=== PATIENT | female | born 1945 | race Hispanic/Latino ===

== ENCOUNTER 2017-05-10 06:55 | Inpatient (IN) | payer MEDICARE ==
[~2017-05-10] VITALS: Ht 152.4 cm; Wt 87.6 kg
[~2017-05-10 06:55] MED LIST: ACET-2743 PO; ALBU8.5H8 IH; ATOR10 PO; BIMA12.5OS OU; CHOL50004 PO; DRON400T2 PO; FURO20TA4 PO; IBUP-2070 PO; INSLAN SQ; INSU3INS3 SQ; LEVO150T11 PO; LOSA25TA21 PO; METF500T7 PO; MEXI200 PO; TORS20TA4 PO
[2017-05-10 07:15] LABS: BASOPHILS % (AUTO) 1.3 % (0.0-5.0); EOSINOPHILS % (AUTO) 1.9 % (0.0-8.0); HEMATOCRIT 34.2 % (36-48); LYMPHOCYTES % (AUTO) 15.2 % (21.0-51.0); MEAN CORPUSCULAR HEMOGLOBIN 26.5 pg (27.0-33.0); MEAN CORPUSCULAR HGB CONC 32.3 g/dL (32.0-36.0); MEAN CORPUSCULAR VOLUME 82.1 fL (79-99); MONOCYTES % (AUTO) 3.5 % (3.0-13.0); NEUTROPHILS % (AUTO) 78.1 % (40.0-77.0); PLATELET COUNT (AUTO) 218 K/uL (130-400); RED BLOOD CELL COUNT(AUTO) 4.17 MIL/uL (4.00-5.50); RED CELL DISTRIBUTION WIDTH 14.4 % (11.0-15.5); WHITE BLOOD COUNT (AUTO) 15.5 K/uL (4.8-10.8)
[2017-05-10 07:19] LABS: CREATININE 0.9 mg/dL (0.5-1.5); POTASSIUM 4.4 mmol/L (3.5-5.1)
[2017-05-10 07:34] LABS: B-TYPE NATRIURETIC PEPTIDE 528 pg/mL (0-100)
[2017-05-10 07:35] LABS: ALBUMIN 3.3 g/dL (3.5-5.0); BILIRUBIN,TOTAL 0.8 mg/dL (0.2-1.0); CREATINE KINASE MB 1.5 ng/mL (0.5-3.6); TOTAL PROTEIN, SERUM 7.5 g/dL (6.0-8.3)
[2017-05-10 07:40] LABS: INR 0.95 (0.85-1.15); PARTIAL THROMBOPLASTIN TIME 24.4 SEC (26.3-35.5)
[2017-05-10 08:16] LABS: ABG BASE EXCESS -1.8 mmol/L (-2.0-3.0); ABG HCO3 23.9 mmol/L (21.0-28.0); ABG OXYGEN SATURATION 99.5 % (95.0-99.0); ABG PCO2 44 mmHg (32-45)
[2017-05-10] MEDS ORDERED: LACTULOSE 20 GM/30 ML UDCUP PO PRN (08:45)
[2017-05-10] MEDS ORDERED: MAG HYDROX/AL HYDROX/SIMETH ES 30 ML SUSP UDCUP PO PRN (08:45)
[2017-05-10] MEDS ORDERED: DOXYCYCLINE 100MG+NS 250ML 250 ML IV SCH (08:45)
[2017-05-10 08:51] LABS: BILIRUBIN,URINE Negative (NEGATIVE); COLOR,URINE Yellow (YELLOW); GLUCOSE, URINE (UA) Negative (NEGATIVE); KETONES,URINE Negative (NEGATIVE); LEUKOCYTE ESTERASE ,URINE Negative (NEGATIVE); NITRATE,URINE Negative (NEGATIVE); OCCULT BLOOD,URINE Negative (NEGATIVE); PROTEIN,URINE 300 (NEGATIVE); UROBILINOGEN,URINE 0.2 mg/dL (0.2-1.0)
[2017-05-10 08:53] LABS: APPEARANCE,URINE SLIGHTLY CLOUDY (CLEAR)
[2017-05-10 09:02] LABS: BACTERIA,URINE Few /HPF (None Seen); MUCUS,URINE Moderate LPF (None Seen); RBC,URINE None Seen /HPF (0-1); SQUAMOUS EPITHELIAL CELL,UR 0-2 /LPF (0-2); WBC,URINE None Seen /HPF (0-1)
[2017-05-10] MEDS ORDERED: FAMOTIDINE/PF 20 MG/2 ML VIAL IV ONE (11:31)
[2017-05-10] MEDS ORDERED: DOXYCYCLINE 100MG+NS 250ML 250 ML IV ONE ×2 (11:31→11:33)
[2017-05-10] MEDS ORDERED: IPRATROPIUM/ALBUTEROL SULFATE 3 ML SOLUTION IH ONE (11:39)
[2017-05-10] MEDS: IPRATROPIUM/ALBUTEROL SULFATE 3 ML SOLUTION IH SCH ×2 (11:46→19:13)
[2017-05-10] MEDS: FAMOTIDINE/PF 20 MG/2 ML VIAL IV SCH ×2 (12:27→22:03)
[2017-05-10] MEDS: FUROSEMIDE 10 MG/ML 4ML VIAL IVP SCH ×2 (13:22→22:03)
[2017-05-10] MEDS: DOXYCYCLINE 100MG+NS 250ML 250 ML IV SCH ×2 (13:22→22:03)
[2017-05-10 13:26] VITALS: BP 130/62
[2017-05-10] MEDS ORDERED: IOPAMIDOL-370 100 ML VIAL IV ONE (14:52)
[2017-05-10] MEDS ORDERED: LEVAHFA IH (15:18)
[2017-05-10] MEDS ORDERED: NITR100C PO (15:18)
[2017-05-10] MEDS ORDERED: CYAN100T PO (15:18)
[2017-05-10] MEDS ORDERED: NITR0.4T SL (15:18)
[2017-05-10] MEDS ORDERED: TRAM50TA4 PO (15:18)
[2017-05-10 16:00] VITALS: BP 145/63
[2017-05-10] MEDS ORDERED: DEXTROSE 50%-WATER 50 ML DISP.SYRIN IV PRN (16:45)
[2017-05-10] MEDS ORDERED: GLUCAGON 1MG KIT 1 MG ML IM PRN (16:45)
[2017-05-10] MEDS: ACETAMINOPHEN 325 MG TAB PO PRN (18:44)
[2017-05-10 19:22] VITALS: BP 164/60
[2017-05-10] MEDS: INSULIN HUMULIN R 100 UNIT/ML 3ML SQ SCH (22:05)
[2017-05-10 23:19] VITALS: BP 149/55
[2017-05-11] MEDS: IPRATROPIUM/ALBUTEROL SULFATE 3 ML SOLUTION IH SCH ×4 (00:11→17:09)
[2017-05-11 03:43] VITALS: BP 154/58
[2017-05-11 04:54] LABS: HEMATOCRIT 30.3 % (36-48); MEAN CORPUSCULAR HGB CONC 34.2 g/dL (32.0-36.0); MEAN CORPUSCULAR VOLUME 81.9 fL (79-99); PLATELET COUNT (AUTO) 207 K/uL (130-400); RED BLOOD CELL COUNT(AUTO) 3.71 MIL/uL (4.00-5.50); RED CELL DISTRIBUTION WIDTH 14.3 % (11.0-15.5); WHITE BLOOD COUNT (AUTO) 8.4 K/uL (4.8-10.8)
[2017-05-11 04:58] LABS: CREATININE 1.1 mg/dL (0.5-1.5); POTASSIUM 4.3 mmol/L (3.5-5.1)
[2017-05-11] MEDS: ONDANSETRON HCL 4 MG/2 ML VIAL IV PRN ×3 (05:07→21:47)
[2017-05-11 05:16] LABS: B-TYPE NATRIURETIC PEPTIDE 541 pg/mL (0-100)
[2017-05-11] MEDS: INSULIN HUMULIN R 100 UNIT/ML 3ML SQ SCH ×4 (06:03→20:35)
[2017-05-11 07:43] VITALS: BP 158/74
[2017-05-11] MEDS ORDERED: TRAMADOL HCL 50 MG TABLET PO PRN (08:30)
[2017-05-11] MEDS ORDERED: LOSARTAN 50 MG TABLET PO SCH (09:00)
[2017-05-11] MEDS: ENOXAPARIN SODIUM 40 MG/0.4 ML SYRINGE SQ SCH (09:47)
[2017-05-11] MEDS: FAMOTIDINE/PF 20 MG/2 ML VIAL IV SCH ×2 (09:47→20:25)
[2017-05-11] MEDS: FUROSEMIDE 10 MG/ML 4ML VIAL IVP SCH ×2 (09:47→20:25)
[2017-05-11] MEDS: CYANOCOBALAMIN (VITAMIN B-12) 100 MCG TABLET PO SCH (09:48)
[2017-05-11] MEDS: ACETAMINOPHEN 325 MG TAB PO PRN ×2 (09:49→22:05)
[2017-05-11] MEDS: DOXYCYCLINE 100MG+NS 250ML 250 ML IV SCH ×2 (10:02→20:24)
[2017-05-11 11:40] VITALS: BP 147/80
[2017-05-11 16:20] VITALS: BP 157/73
[2017-05-11 19:35] VITALS: BP 116/66
[2017-05-11] MEDS: ATORVASTATIN CALCIUM 10 MG TABLET PO SCH (20:25)
[2017-05-11] MEDS: LATANOPROST 2.5 ML DROPS OU SCH (20:25)
[2017-05-11 23:33] VITALS: BP 126/58
[2017-05-12] MEDS: IPRATROPIUM/ALBUTEROL SULFATE 3 ML SOLUTION IH SCH ×4 (00:07→16:57)
[2017-05-12 04:00] VITALS: BP 151/66
[2017-05-12 04:23] LABS: HEMATOCRIT 28.8 % (36-48); MEAN CORPUSCULAR HEMOGLOBIN 27.8 pg (27.0-33.0); MEAN CORPUSCULAR HGB CONC 33.7 g/dL (32.0-36.0); MEAN CORPUSCULAR VOLUME 82.5 fL (79-99); PLATELET COUNT (AUTO) 178 K/uL (130-400); RED BLOOD CELL COUNT(AUTO) 3.49 MIL/uL (4.00-5.50); RED CELL DISTRIBUTION WIDTH 14.4 % (11.0-15.5); WHITE BLOOD COUNT (AUTO) 8.1 K/uL (4.8-10.8)
[2017-05-12 04:29] LABS: CREATININE 1.6 mg/dL (0.5-1.5)
[2017-05-12] MEDS: INSULIN HUMULIN R 100 UNIT/ML 3ML SQ SCH ×4 (05:35→20:07)
[2017-05-12] MEDS: ONDANSETRON HCL 4 MG/2 ML VIAL IV PRN (05:58)
[2017-05-12] MEDS: LEVOTHYROXINE 150 MCG TABLET PO SCH ×2 (05:59→09:24)
[2017-05-12 07:00] VITALS: BP 170/66
[2017-05-12] MEDS ORDERED: METHYLPREDNISOLONE SOD SUCC 125MG/2ML VIAL IVP SCH (08:15)
[2017-05-12] MEDS: FUROSEMIDE 40 MG TABLET PO SCH (09:24)
[2017-05-12] MEDS: METOCLOPRAMIDE 10 MG/2 ML VIAL IVP SCH ×3 (09:24→16:50)
[2017-05-12] MEDS: CYANOCOBALAMIN (VITAMIN B-12) 100 MCG TABLET PO SCH (09:24)
[2017-05-12] MEDS: ENOXAPARIN SODIUM 40 MG/0.4 ML SYRINGE SQ SCH (09:25)
[2017-05-12] MEDS: FAMOTIDINE/PF 20 MG/2 ML VIAL IV SCH ×2 (09:25→20:01)
[2017-05-12] MEDS: DOXYCYCLINE 100MG+NS 250ML 250 ML IV SCH ×2 (09:26→19:59)
[2017-05-12] MEDS: INSULIN GLARGINE 100 UNITS/ML 10 ML VIAL SQ SCH (09:26)
[2017-05-12 11:00] VITALS: BP 140/52
[2017-05-12 16:00] VITALS: BP 147/61
[2017-05-12] MEDS: GUAIFENESIN-DM 200/20 MG 10 ML PO PRN (17:03)
[2017-05-12 19:48] VITALS: BP 148/66
[2017-05-12] MEDS: ATORVASTATIN CALCIUM 10 MG TABLET PO SCH (19:59)
[2017-05-12] MEDS: CARVEDILOL 3.125 MG TABLET PO SCH (20:01)
[2017-05-12] MEDS: METHYLPREDNISOLONE SOD SUCC 40MG/ML 1ML IVP SCH (20:01)
[2017-05-12] MEDS: LATANOPROST 2.5 ML DROPS OU SCH (20:01)
[2017-05-12 23:47] VITALS: BP 162/70
[2017-05-13] MEDS: IPRATROPIUM/ALBUTEROL SULFATE 3 ML SOLUTION IH SCH ×5 (00:24→23:14)
[2017-05-13 04:00] VITALS: BP_SYST 135; BP_SYST 137; BP_DIAS 64; BP_DIAS 79
[2017-05-13 04:41] LABS: CREATININE 1.5 mg/dL (0.5-1.5); POTASSIUM 4.4 mmol/L (3.5-5.1)
[2017-05-13] MEDS: LEVOTHYROXINE 150 MCG TABLET PO SCH (06:24)
[2017-05-13] MEDS: METOCLOPRAMIDE 10 MG/2 ML VIAL IVP SCH ×3 (06:24→16:15)
[2017-05-13] MEDS: INSULIN GLARGINE 100 UNITS/ML 10 ML VIAL SQ SCH (06:25)
[2017-05-13] MEDS: INSULIN HUMULIN R 100 UNIT/ML 3ML SQ SCH ×4 (06:27→20:24)
[2017-05-13 07:00] VITALS: BP 146/62
[2017-05-13] MEDS ORDERED: LOSARTAN 50 MG TABLET PO SCH (09:00)
[2017-05-13] MEDS: DOXYCYCLINE 100MG+NS 250ML 250 ML IV SCH ×2 (09:43→20:03)
[2017-05-13] MEDS: CARVEDILOL 3.125 MG TABLET PO SCH ×2 (09:44→20:06)
[2017-05-13] MEDS: AMIODARONE HCL 200 MG TABLET PO SCH (09:44)
[2017-05-13] MEDS: CYANOCOBALAMIN (VITAMIN B-12) 100 MCG TABLET PO SCH (09:44)
[2017-05-13] MEDS: FUROSEMIDE 40 MG TABLET PO SCH (09:44)
[2017-05-13] MEDS: FAMOTIDINE/PF 20 MG/2 ML VIAL IV SCH ×2 (09:44→20:04)
[2017-05-13] MEDS: GUAIFENESIN-DM 200/20 MG 10 ML PO PRN (09:45)
[2017-05-13] MEDS: METHYLPREDNISOLONE SOD SUCC 40MG/ML 1ML IVP SCH ×2 (09:45→20:04)
[2017-05-13] MEDS: ENOXAPARIN SODIUM 40 MG/0.4 ML SYRINGE SQ SCH (09:45)
[2017-05-13 11:00] VITALS: BP 134/59
[2017-05-13 16:00] VITALS: BP 144/49
[2017-05-13 19:43] VITALS: BP 153/53
[2017-05-13] MEDS: LATANOPROST 2.5 ML DROPS OU SCH (20:04)
[2017-05-13] MEDS: ATORVASTATIN CALCIUM 10 MG TABLET PO SCH (20:04)
[2017-05-13 23:36] VITALS: BP 183/75
[2017-05-14 03:59] VITALS: BP 173/64
[2017-05-14 04:53] LABS: CREATININE 1.3 mg/dL (0.5-1.5); POTASSIUM 4.5 mmol/L (3.5-5.1)
[2017-05-14] MEDS: IPRATROPIUM/ALBUTEROL SULFATE 3 ML SOLUTION IH SCH ×4 (05:31→23:48)
[2017-05-14] MEDS: INSULIN HUMULIN R 100 UNIT/ML 3ML SQ SCH ×4 (06:32→20:42)
[2017-05-14] MEDS: LEVOTHYROXINE 150 MCG TABLET PO SCH (06:33)
[2017-05-14] MEDS: METOCLOPRAMIDE 10 MG/2 ML VIAL IVP SCH ×3 (06:33→15:54)
[2017-05-14] MEDS: INSULIN GLARGINE 100 UNITS/ML 10 ML VIAL SQ SCH (06:35)
[2017-05-14 07:00] VITALS: BP 145/85
[2017-05-14] MEDS: CYANOCOBALAMIN (VITAMIN B-12) 100 MCG TABLET PO SCH (08:25)
[2017-05-14] MEDS: METHYLPREDNISOLONE SOD SUCC 40MG/ML 1ML IVP SCH ×2 (08:25→20:35)
[2017-05-14] MEDS: FAMOTIDINE/PF 20 MG/2 ML VIAL IV SCH ×2 (08:25→20:36)
[2017-05-14] MEDS: CARVEDILOL 3.125 MG TABLET PO SCH ×2 (08:26→20:35)
[2017-05-14] MEDS: ENOXAPARIN SODIUM 40 MG/0.4 ML SYRINGE SQ SCH (08:26)
[2017-05-14] MEDS: AMIODARONE HCL 200 MG TABLET PO SCH (08:26)
[2017-05-14] MEDS: LOSARTAN 100 MG TABLET PO SCH (08:26)
[2017-05-14] MEDS: FUROSEMIDE 40 MG TABLET PO SCH (08:26)
[2017-05-14] MEDS: DOXYCYCLINE 100MG+NS 250ML 250 ML IV SCH ×2 (08:27→20:36)
[2017-05-14 11:00] VITALS: BP 159/65
[2017-05-14] MEDS: ACETYLCYSTEINE 20% 200MG/ML 4ML VIAL IH SCH ×2 (11:34→21:00)
[2017-05-14 16:00] VITALS: BP 153/60
[2017-05-14 19:29] VITALS: BP 161/59
[2017-05-14] MEDS: ATORVASTATIN CALCIUM 10 MG TABLET PO SCH (20:34)
[2017-05-14] MEDS: LATANOPROST 2.5 ML DROPS OU SCH (20:37)
[2017-05-14 23:24] VITALS: BP 163/64
[2017-05-15] VITALS (7 sets, daily range): BP systolic 139–182; BP diastolic 57–73
[2017-05-15] MEDS: METOCLOPRAMIDE 10 MG/2 ML VIAL IVP SCH ×3 (05:33→16:41)
[2017-05-15] MEDS: LEVOTHYROXINE 150 MCG TABLET PO SCH (05:33)
[2017-05-15] MEDS: INSULIN GLARGINE 100 UNITS/ML 10 ML VIAL SQ SCH (05:36)
[2017-05-15] MEDS: INSULIN HUMULIN R 100 UNIT/ML 3ML SQ SCH ×4 (05:37→21:00)
[2017-05-15] MEDS ORDERED: ACETYLCYSTEINE 20% 200MG/ML 4ML VIAL ONE ×3 (06:11→23:04)
[2017-05-15] MEDS: IPRATROPIUM/ALBUTEROL SULFATE 3 ML SOLUTION IH SCH ×4 (06:37→23:30)
[2017-05-15] MEDS: LOSARTAN 100 MG TABLET PO SCH (07:35)
[2017-05-15] MEDS: CARVEDILOL 3.125 MG TABLET PO SCH ×2 (07:35→21:54)
[2017-05-15] MEDS: AMIODARONE HCL 200 MG TABLET PO SCH (07:35)
[2017-05-15] MEDS: DOXYCYCLINE 100MG+NS 250ML 250 ML IV SCH ×2 (07:35→21:52)
[2017-05-15] MEDS: FUROSEMIDE 40 MG TABLET PO SCH (07:35)
[2017-05-15] MEDS: METHYLPREDNISOLONE SOD SUCC 40MG/ML 1ML IVP SCH ×2 (07:35→21:53)
[2017-05-15] MEDS: CYANOCOBALAMIN (VITAMIN B-12) 100 MCG TABLET PO SCH (07:36)
[2017-05-15] MEDS: FAMOTIDINE/PF 20 MG/2 ML VIAL IV SCH ×2 (07:36→21:53)
[2017-05-15] MEDS: ENOXAPARIN SODIUM 40 MG/0.4 ML SYRINGE SQ SCH (07:36)
[2017-05-15 07:47] LABS: CREATININE 1.1 mg/dL (0.5-1.5); POTASSIUM 4.4 mmol/L (3.5-5.1)
[2017-05-15] MEDS ORDERED: ALBUTEROL SULFATE 0.083% 2.5 MG/3 ML INH IH ONE (10:51)
[2017-05-15] MEDS ORDERED: IPRATROPIUM 0.5 MG/2.5 ML INH IH ONE (10:51)
[2017-05-15] MEDS: ACETYLCYSTEINE 20% 200MG/ML 4ML VIAL IH SCH ×2 (11:18→19:08)
[2017-05-15] MEDS: HYDRALAZINE HCL 20 MG/ML VIAL IV PRN (17:02)
[2017-05-15] MEDS: ATORVASTATIN CALCIUM 10 MG TABLET PO SCH (21:54)
[2017-05-15] MEDS: LATANOPROST 2.5 ML DROPS OU SCH (21:56)
[2017-05-16] MEDS: HYDRALAZINE HCL 20 MG/ML VIAL IV PRN (00:50)
[2017-05-16 04:00] VITALS: BP 152/57
[2017-05-16 05:01] LABS: CREATININE 1.3 mg/dL (0.5-1.5); POTASSIUM 4.4 mmol/L (3.5-5.1)
[2017-05-16] MEDS: IPRATROPIUM/ALBUTEROL SULFATE 3 ML SOLUTION IH SCH ×3 (06:31→18:32)
[2017-05-16] MEDS: ACETYLCYSTEINE 20% 200MG/ML 4ML VIAL IH SCH (06:31)
[2017-05-16] MEDS: LEVOTHYROXINE 150 MCG TABLET PO SCH (06:43)
[2017-05-16] MEDS: METOCLOPRAMIDE 10 MG/2 ML VIAL IVP SCH ×3 (06:43→16:28)
[2017-05-16] MEDS: INSULIN HUMULIN R 100 UNIT/ML 3ML SQ SCH ×4 (06:45→20:52)
[2017-05-16] MEDS: INSULIN GLARGINE 100 UNITS/ML 10 ML VIAL SQ SCH (06:47)
[2017-05-16 07:39] VITALS: BP 173/61
[2017-05-16] MEDS ORDERED: BENZONATATE 100 MG CAPSULE PO PRN (09:15)
[2017-05-16] MEDS: DOXYCYCLINE 100MG+NS 250ML 250 ML IV SCH ×2 (10:20→20:47)
[2017-05-16] MEDS: AMIODARONE HCL 200 MG TABLET PO SCH (10:21)
[2017-05-16] MEDS: AMLODIPINE BESYLATE 5 MG TAB PO SCH (10:21)
[2017-05-16] MEDS: CARVEDILOL 3.125 MG TABLET PO SCH ×2 (10:21→20:47)
[2017-05-16] MEDS: LOSARTAN 100 MG TABLET PO SCH (10:21)
[2017-05-16] MEDS: FAMOTIDINE/PF 20 MG/2 ML VIAL IV SCH ×2 (10:22→20:48)
[2017-05-16] MEDS: FUROSEMIDE 40 MG TABLET PO SCH (10:22)
[2017-05-16] MEDS: CYANOCOBALAMIN (VITAMIN B-12) 100 MCG TABLET PO SCH (10:22)
[2017-05-16] MEDS: METHYLPREDNISOLONE SOD SUCC 40MG/ML 1ML IVP SCH ×2 (10:22→20:48)
[2017-05-16] MEDS: ENOXAPARIN SODIUM 40 MG/0.4 ML SYRINGE SQ SCH (10:23)
[2017-05-16 11:14] VITALS: BP 144/49
[2017-05-16 16:16] VITALS: BP 153/59
[2017-05-16 19:51] VITALS: BP 157/59
[2017-05-16] MEDS: ACETAMINOPHEN 325 MG TAB PO PRN (19:52)
[2017-05-16] MEDS: ATORVASTATIN CALCIUM 10 MG TABLET PO SCH (20:47)
[2017-05-16] MEDS: LATANOPROST 2.5 ML DROPS OU SCH (21:19)
[2017-05-16 23:36] VITALS: BP 154/59
[2017-05-17] MEDS: IPRATROPIUM/ALBUTEROL SULFATE 3 ML SOLUTION IH SCH ×3 (01:21→11:11)
[2017-05-17 04:09] VITALS: BP 179/63
[2017-05-17 05:06] LABS: POTASSIUM 3.7 mmol/L (3.5-5.1)
[2017-05-17 05:39] VITALS: BP 164/68
[2017-05-17 06:00] VITALS: BP 159/68
[2017-05-17] MEDS: INSULIN HUMULIN R 100 UNIT/ML 3ML SQ SCH ×2 (06:01→11:39)
[2017-05-17] MEDS: LEVOTHYROXINE 150 MCG TABLET PO SCH (06:14)
[2017-05-17] MEDS: METOCLOPRAMIDE 10 MG/2 ML VIAL IVP SCH ×2 (06:14→11:40)
[2017-05-17 07:29] VITALS: BP 151/65
[2017-05-17] MEDS ORDERED: INSULIN GLARGINE 100 UNITS/ML 10 ML VIAL SQ SCH (07:30)
[2017-05-17] MEDS: DOXYCYCLINE 100MG+NS 250ML 250 ML IV SCH ×2 (09:00→10:28)
[2017-05-17] MEDS ORDERED: AMIO200T44 PO (09:12)
[2017-05-17] MEDS ORDERED: CARV3.1262 PO (09:12)
[2017-05-17] MEDS ORDERED: PRED10TA3 PO (09:12)
[2017-05-17] MEDS ORDERED: LOSA100T2 PO (09:12)
[2017-05-17] MEDS: METHYLPREDNISOLONE SOD SUCC 40MG/ML 1ML IVP SCH (10:20)
[2017-05-17] MEDS: AMIODARONE HCL 200 MG TABLET PO SCH (10:23)
[2017-05-17] MEDS: LOSARTAN 100 MG TABLET PO SCH (10:23)
[2017-05-17] MEDS: CARVEDILOL 3.125 MG TABLET PO SCH (10:23)
[2017-05-17] MEDS: CYANOCOBALAMIN (VITAMIN B-12) 100 MCG TABLET PO SCH (10:24)
[2017-05-17] MEDS: FUROSEMIDE 40 MG TABLET PO SCH (10:24)
[2017-05-17] MEDS: AMLODIPINE BESYLATE 5 MG TAB PO SCH (10:24)
[2017-05-17] MEDS: ENOXAPARIN SODIUM 40 MG/0.4 ML SYRINGE SQ SCH (10:31)
[2017-05-17] MEDS: FAMOTIDINE/PF 20 MG/2 ML VIAL IV SCH (10:40)
[2017-05-17 11:25] VITALS: BP 152/55
[2017-07-13] MEDS ORDERED: TIZA2CAP9 PO (13:18)
[2017-07-13] MEDS ORDERED: HYDR20VI6 IV (13:18)
[2017-07-13] MEDS ORDERED: METF500T6 PO (13:18)
[2017-07-13] MEDS ORDERED: AEC81 PO (13:18)
[2017-07-13] MEDS ORDERED: ISOS10TA8 PO (13:18)
[2017-07-13] MEDS ORDERED: AMLO5TAB5 PO (13:18)
[2017-07-13] MEDS ORDERED: SIMV40TA5 PO (13:18)
[2017-10-09] MEDS ORDERED: EZET10TA26 PO (10:43)
[2017-10-09] MEDS ORDERED: OMEP20CA10 PO (10:45)
[2017-10-09] MEDS ORDERED: LOSA25TA21 PO (10:45)
== END 2017-05-17 14:10 | disposition home or self-care (01) | DRG 291 ==
LOC: EDH 06:55 → EDHIP 08:31 → 2DH 13:05
PROVIDERS: ADMIT Family Medicine; ATTEND Family Medicine
PROC: 5A09357 Assistance with Respiratory Ventilation, Less than 24 Consecutive Hours, Continuous Positive Airway Pressure (ICD-10-PCS; principal; 2017-05-10)
PROC: 5A09357 Assistance with Respiratory Ventilation, Less than 24 Consecutive Hours, Continuous Positive Airway Pressure (ICD-10-PCS; 2017-05-12)
PROC: 5A09357 Assistance with Respiratory Ventilation, Less than 24 Consecutive Hours, Continuous Positive Airway Pressure (ICD-10-PCS; 2017-05-13)
PROC: 5A09357 Assistance with Respiratory Ventilation, Less than 24 Consecutive Hours, Continuous Positive Airway Pressure (ICD-10-PCS; 2017-05-13)
PROC: 5A09357 Assistance with Respiratory Ventilation, Less than 24 Consecutive Hours, Continuous Positive Airway Pressure (ICD-10-PCS; 2017-05-14)
DX: I13.0 Hypertensive heart and chronic kidney disease with heart failure and stage 1 through stage 4 chronic kidney disease, or unspecified chronic kidney disease (principal); I50.43 Acute on chronic combined systolic (congestive) and diastolic (congestive) heart failure; E11.22 Type 2 diabetes mellitus with diabetic chronic kidney disease; I27.20 Pulmonary hypertension, unspecified; R18.8 Other ascites; R06.03 Acute respiratory distress; E66.01 Morbid (severe) obesity due to excess calories; N18.3 Chronic kidney disease, stage 3 (moderate); I42.0 Dilated cardiomyopathy; I48.0 Paroxysmal atrial fibrillation; G47.30 Sleep apnea, unspecified; I48.2 Chronic atrial fibrillation; G47.33 Obstructive sleep apnea (adult) (pediatric); N28.9 Disorder of kidney and ureter, unspecified; E03.9 Hypothyroidism, unspecified; E78.00 Pure hypercholesterolemia, unspecified; E78.5 Hyperlipidemia, unspecified; I25.10 Atherosclerotic heart disease of native coronary artery without angina pectoris; T46.4X5A Adverse effect of angiotensin-converting-enzyme inhibitors, initial encounter; I42.5 Other restrictive cardiomyopathy; I45.9 Conduction disorder, unspecified; M19.90 Unspecified osteoarthritis, unspecified site; I87.2 Venous insufficiency (chronic) (peripheral); K59.00 Constipation, unspecified; R79.89 Other specified abnormal findings of blood chemistry; Z95.810 Presence of automatic (implantable) cardiac defibrillator; Z87.01 Personal history of pneumonia (recurrent); Z86.79 Personal history of other diseases of the circulatory system; Z82.49 Family history of ischemic heart disease and other diseases of the circulatory system; Z68.37 Body mass index [BMI] 37.0-37.9, adult; R05 Cough; Z90.49 Acquired absence of other specified parts of digestive tract; Z98.891 History of uterine scar from previous surgery
CPT/HCPCS: 36415; 36600; 71010; 71046; 71250; 71275; 80048; 80053; 81001; 82550; 82553; 82803; 82948; 83605; 83880; 84484; 85025; 85027; 85610; 85730; 93005; 93306; 93970; 94640; 94660; 94664; 97039; 99291; J0360; J1650; J1815; J1940; J2405; J2765; J2920; J2930; J3490; J7608; Q9967

== ENCOUNTER 2017-05-20 02:57 | Emergency (ER) | payer MEDICARE ==
[~2017-05-20 02:57] MED LIST changes: +AMIO200T44 PO; +CARV3.1262 PO; +CYAN100T PO; -DRON400T2 PO; -IBUP-2070 PO; +LEVAHFA IH; +LOSA100T2 PO; -LOSA25TA21 PO; -METF500T7 PO; -MEXI200 PO; +NITR0.4T SL; +NITR100C PO; +PRED10TA3 PO; -TORS20TA4 PO; +TRAM50TA4 PO
[2017-05-20 04:32] LABS: BASOPHILS % (AUTO) 0.4 % (0.0-5.0); HEMATOCRIT 35.4 % (36-48); MEAN CORPUSCULAR HEMOGLOBIN 26.8 pg (27.0-33.0); MEAN CORPUSCULAR HGB CONC 32.8 g/dL (32.0-36.0); MEAN CORPUSCULAR VOLUME 81.8 fL (79-99); MONOCYTES % (AUTO) 7.4 % (3.0-13.0); NEUTROPHILS % (AUTO) 65.2 % (40.0-77.0); PLATELET COUNT (AUTO) 243 K/uL (130-400); RED BLOOD CELL COUNT(AUTO) 4.33 MIL/uL (4.00-5.50); RED CELL DISTRIBUTION WIDTH 14.6 % (11.0-15.5); WHITE BLOOD COUNT (AUTO) 12.6 K/uL (4.8-10.8)
[2017-05-20 04:35] LABS: CREATININE 1.2 mg/dL (0.5-1.5); POTASSIUM 4.1 mmol/L (3.5-5.1)
[2017-05-20 04:39] LABS: ALBUMIN 2.7 g/dL (3.5-5.0); BILIRUBIN,TOTAL 0.4 mg/dL (0.2-1.0); TOTAL PROTEIN, SERUM 6.3 g/dL (6.0-8.3)
[2017-05-20 04:48] LABS: RAPID GROUP A STREP NEGATIVE (NEGATIVE)
[2017-05-20] MEDS ORDERED: IBUPROFEN 600 MG TABLET ONE (06:31)
[2017-05-20 06:55] LABS: APPEARANCE,URINE Clear (CLEAR); BILIRUBIN,URINE Negative (NEGATIVE); COLOR,URINE Yellow (YELLOW); GLUCOSE, URINE (UA) Negative (NEGATIVE); KETONES,URINE Negative (NEGATIVE); LEUKOCYTE ESTERASE ,URINE Negative (NEGATIVE); NITRATE,URINE Negative (NEGATIVE); OCCULT BLOOD,URINE Negative (NEGATIVE); PROTEIN,URINE POS 2+ (NEGATIVE); UROBILINOGEN,URINE 0.2 mg/dL (0.2-1.0)
[2017-05-20 07:15] LABS: BACTERIA,URINE Few /HPF (None Seen); WBC,URINE 0-1 /HPF (0-1)
[2017-05-20 07:16] LABS: SQUAMOUS EPITHELIAL CELL,UR Rare /LPF (0-2)
[2017-07-13] MEDS ORDERED: AMLO5TAB5 PO (13:18)
[2017-07-13] MEDS ORDERED: HYDR20VI6 IV (13:18)
[2017-07-13] MEDS ORDERED: ISOS10TA8 PO (13:18)
[2017-07-13] MEDS ORDERED: AEC81 PO (13:18)
[2017-07-13] MEDS ORDERED: TIZA2CAP9 PO (13:18)
[2017-07-13] MEDS ORDERED: SIMV40TA5 PO (13:18)
[2017-07-13] MEDS ORDERED: METF500T6 PO (13:18)
[2017-10-09] MEDS ORDERED: EZET10TA26 PO (10:43)
[2017-10-09] MEDS ORDERED: OMEP20CA10 PO (10:45)
[2017-10-09] MEDS ORDERED: LOSA25TA21 PO (10:45)
== END 2017-05-20 08:36 | disposition home or self-care (01) ==
LOC: EDH 02:57
DX: J20.9 Acute bronchitis, unspecified (principal); E11.9 Type 2 diabetes mellitus without complications; I11.0 Hypertensive heart disease with heart failure; I50.9 Heart failure, unspecified; M19.90 Unspecified osteoarthritis, unspecified site
CPT/HCPCS: 36415; 71046; 80053; 81001; 85025; 87804; 87880; 94640

== ENCOUNTER → 2017-08-13 | Outpatient (CLI) | payer MEDICARE ==
[~2017-08-13] MED LIST changes: -ACET-2743 PO; +AEC81 PO; +ALLO100T PO; -AMIO200T44 PO; +AMLO5TAB5 PO; +BENZ200C53 PO; +CEFU500T67 PO; -CYAN100T PO; +DOXY100C2 PO; +DRON400T2 PO; +EZET10TA26 PO; +HYDR-2534 PO; +HYDR20VI6 IV; +IBUP-2070 PO; +ISOS10TA8 PO; +LIDOP TP; +LOSA25TA21 PO; +METF500T6 PO; +METO5 PO; -NITR0.4T SL; -NITR100C PO; +OMEP20CA10 PO; -PRED10TA3 PO; +SERT25TA5 PO; +SIMV40TA5 PO; +TIZA2CAP9 PO; +TIZA2TAB4 PO; +TORS20TA4 PO
== END ==
LOC: OIH 08:30
PROVIDERS: ATTEND Internal Medicine Cardiovascular Disease
DX: I48.0 Paroxysmal atrial fibrillation (principal); I50.22 Chronic systolic (congestive) heart failure; Z95.0 Presence of cardiac pacemaker
CPT/HCPCS: 71046

== ENCOUNTER 2017-08-29 01:44 | Inpatient (IN) | payer MEDICARE ==
[~2017-08-29] VITALS: Ht 152.4 cm; Wt 89.8 kg
[~2017-08-29 01:44] MED LIST changes: -ALLO100T PO; -ATOR10 PO; -BENZ200C53 PO; -CEFU500T67 PO; -DOXY100C2 PO; -DRON400T2 PO; -EZET10TA26 PO; -HYDR-2534 PO; -IBUP-2070 PO; -LIDOP TP; -LOSA25TA21 PO; -METO5 PO; -OMEP20CA10 PO; -SERT25TA5 PO; -TIZA2TAB4 PO; -TORS20TA4 PO
[2017-08-29 02:03] LABS: BASOPHILS % (AUTO) 0.6 % (0.0-5.0); HEMATOCRIT 31.2 % (36-48); LYMPHOCYTES % (AUTO) 14.6 % (21.0-51.0); MEAN CORPUSCULAR HEMOGLOBIN 27.6 pg (27.0-33.0); MEAN CORPUSCULAR HGB CONC 33.7 g/dL (32.0-36.0); MEAN CORPUSCULAR VOLUME 81.9 fL (79-99); MONOCYTES % (AUTO) 5.8 % (3.0-13.0); PLATELET COUNT (AUTO) 234 K/uL (130-400); RED BLOOD CELL COUNT(AUTO) 3.81 MIL/uL (4.00-5.50); RED CELL DISTRIBUTION WIDTH 14.5 % (11.0-15.5); WHITE BLOOD COUNT (AUTO) 14.2 K/uL (4.8-10.8)
[2017-08-29] MEDS ORDERED: NITROGLYCERIN 1GM/1 INCH PACKET TD ONE (02:08)
[2017-08-29] MEDS ORDERED: ASPIRIN 325 MG TABLET ONE ×2 (02:08→08:05)
[2017-08-29] MEDS ORDERED: LABETALOL HCL 5 MG/ML 20ML VIAL IV ONE (02:08)
[2017-08-29 02:15] LABS: POTASSIUM 4.3 mmol/L (3.5-5.1)
[2017-08-29 02:20] LABS: ALBUMIN 3.4 g/dL (3.5-5.0); BILIRUBIN,TOTAL 0.4 mg/dL (0.2-1.0); TOTAL PROTEIN, SERUM 7.6 g/dL (6.0-8.3)
[2017-08-29 02:31] LABS: INR 0.93 (0.85-1.15); PROTHROMBIN TIME 9.8 SEC (9.6-11.6)
[2017-08-29] MEDS ORDERED: ACETAMINOPHEN-CODEINE 300/30MG TAB PO PRN ×2 (07:15)
[2017-08-29] MEDS ORDERED: NITROGLYCERIN 0.4 MG SL TAB SL PRN (07:15)
[2017-08-29] MEDS ORDERED: MAG HYDROX/AL HYDROX/SIMETH ES 30 ML SUSP UDCUP PO PRN (07:15)
[2017-08-29] MEDS: NITROGLYCERIN 1GM/1 INCH PACKET TD SCH ×2 (07:15→17:18)
[2017-08-29] MEDS ORDERED: POTASSIUM CHLORIDE 10% ELIXIR 20 MEQ/15 ML UDCUP PO PRN (07:15)
[2017-08-29] MEDS ORDERED: POTASSIUM CHLORIDE 20MEQ/100ML 100 ML IV PRN (07:15)
[2017-08-29] MEDS ORDERED: ONDANSETRON HCL 4 MG/2 ML VIAL IV PRN (07:15)
[2017-08-29] MEDS ORDERED: GUAIFENESIN-DM 200/20 MG 10 ML PO PRN (07:15)
[2017-08-29] MEDS ORDERED: LIDOCAINE HCL-MPF 1% 2ML VIAL IVP PRN (07:15)
[2017-08-29] MEDS ORDERED: LACTULOSE 20 GM/30 ML UDCUP PO PRN (07:15)
[2017-08-29] MEDS ORDERED: ACETAMINOPHEN 325 MG TAB PO PRN ×2 (07:15)
[2017-08-29] MEDS ORDERED: MORPHINE SULFATE 2 MG/ML 1ML SYG IV PRN (07:15)
[2017-08-29] MEDS ORDERED: POTASSIUM CHLORIDE 20 MEQ ERTAB PO PRN (07:15)
[2017-08-29] MEDS ORDERED: MORPHINE SULFATE 4 MG/1ML SYG IV PRN (07:15)
[2017-08-29] MEDS ORDERED: METOPROLOL TARTRATE 25 MG TAB ONE (08:05)
[2017-08-29] MEDS ORDERED: FAMOTIDINE 20MG TAB 20 MG TAB ONE (08:05)
[2017-08-29] MEDS ORDERED: ENOXAPARIN SODIUM 40 MG/0.4 ML SYRINGE SQ ONE (08:06)
[2017-08-29] MEDS ORDERED: ACETAMINOPHEN 325 MG TAB ONE (08:14)
[2017-08-29] MEDS: FUROSEMIDE 10 MG/ML 4ML VIAL IVP SCH ×3 (09:00→21:05)
[2017-08-29] MEDS: FAMOTIDINE 20MG TAB 20 MG TAB PO SCH ×2 (09:00→21:05)
[2017-08-29] MEDS: ASPIRIN 325 MG TABLET PO SCH (09:00)
[2017-08-29] MEDS: METOPROLOL TARTRATE 25 MG TAB PO SCH ×2 (09:00→21:06)
[2017-08-29] MEDS: ENOXAPARIN SODIUM 40 MG/0.4 ML SYRINGE SQ SCH (09:00)
[2017-08-29 09:31] VITALS: BP 155/61
[2017-08-29 09:39] LABS: CREATINE KINASE MB 1.2 ng/mL (0.5-3.6)
[2017-08-29 11:20] VITALS: BP 135/104
[2017-08-29] MEDS: IPRATROPIUM/ALBUTEROL SULFATE 3 ML SOLUTION IH SCH ×3 (11:20→23:45)
[2017-08-29 11:26] LABS: CREATINE KINASE, TOTAL 47 U/L (21-232); MYOGLOBIN 57 ng/mL (10-92); TROPONIN I < 0.04 ng/mL (0.00-0.06)
[2017-08-29 16:20] VITALS: BP 150/76
[2017-08-29] MEDS: HYDRALAZINE HCL 20 MG/ML VIAL IV PRN (19:02)
[2017-08-29 19:12] LABS: CREATINE KINASE MB 0.9 ng/mL (0.5-3.6); CREATINE KINASE, TOTAL 54 U/L (21-232); MYOGLOBIN 58 ng/mL (10-92); TROPONIN I < 0.04 ng/mL (0.00-0.06)
[2017-08-29 19:57] VITALS: BP 169/69
[2017-08-30] MEDS: NITROGLYCERIN 1GM/1 INCH PACKET TD SCH ×4 (00:20→23:15)
[2017-08-30] MEDS ORDERED: DEXTROSE 50%-WATER 50 ML DISP.SYRIN IV PRN (01:15)
[2017-08-30] MEDS ORDERED: GLUCAGON 1MG KIT 1 MG ML IM PRN (01:15)
[2017-08-30] MEDS ORDERED: INSULIN HUMULIN R 100 UNIT/ML 3ML ONE (01:17)
[2017-08-30 04:45] LABS: CREATININE 1.4 mg/dL (0.5-1.5); POTASSIUM 4.1 mmol/L (3.5-5.1)
[2017-08-30 04:48] LABS: HEMATOCRIT 29.3 % (36-48); MEAN CORPUSCULAR HEMOGLOBIN 27.5 pg (27.0-33.0); MEAN CORPUSCULAR VOLUME 80.9 fL (79-99); PLATELET COUNT (AUTO) 256 K/uL (130-400); RED BLOOD CELL COUNT(AUTO) 3.63 MIL/uL (4.00-5.50); RED CELL DISTRIBUTION WIDTH 15.1 % (11.0-15.5); WHITE BLOOD COUNT (AUTO) 13.9 K/uL (4.8-10.8)
[2017-08-30 05:05] VITALS: BP 124/70
[2017-08-30 05:10] LABS: B-TYPE NATRIURETIC PEPTIDE 1200 pg/mL (0-100)
[2017-08-30] MEDS: IPRATROPIUM/ALBUTEROL SULFATE 3 ML SOLUTION IH SCH ×4 (06:02→23:29)
[2017-08-30] MEDS: INSULIN HUMULIN R 100 UNIT/ML 3ML SQ SCH ×4 (07:07→21:00)
[2017-08-30 07:16] VITALS: BP 174/63
[2017-08-30] MEDS: METOPROLOL TARTRATE 25 MG TAB PO SCH ×2 (08:32→21:36)
[2017-08-30] MEDS: FAMOTIDINE 20MG TAB 20 MG TAB PO SCH ×2 (08:32→21:36)
[2017-08-30] MEDS: FUROSEMIDE 10 MG/ML 4ML VIAL IVP SCH ×2 (08:32→21:35)
[2017-08-30] MEDS: ASPIRIN 325 MG TABLET PO SCH (08:32)
[2017-08-30] MEDS: ENOXAPARIN SODIUM 40 MG/0.4 ML SYRINGE SQ SCH (08:33)
[2017-08-30] MEDS ORDERED: ALBUTEROL SULFATE 0.083% 2.5 MG/3 ML INH IH PRN (09:30)
[2017-08-30 11:24] VITALS: BP 131/51
[2017-08-30] MEDS ORDERED: DRON400T2 PO (12:03)
[2017-08-30] MEDS ORDERED: CEFU500T67 PO (12:03)
[2017-08-30] MEDS ORDERED: TORS20TA4 PO (12:43)
[2017-08-30] MEDS ORDERED: IBUP-2070 PO (12:43)
[2017-08-30] MEDS ORDERED: BENZ200C53 PO (12:43)
[2017-08-30] MEDS ORDERED: ALLO100T PO (12:43)
[2017-08-30] MEDS ORDERED: TIZA2TAB4 PO (12:43)
[2017-08-30] MEDS ORDERED: ATOR10 PO (12:43)
[2017-08-30 15:54] VITALS: BP 148/58
[2017-08-30 20:06] VITALS: BP 137/61
[2017-08-30] MEDS: CARVEDILOL 3.125 MG TABLET PO SCH (21:36)
[2017-08-30 23:24] VITALS: BP 156/55
[2017-08-31 03:53] VITALS: BP 156/71
[2017-08-31 04:53] LABS: HEMATOCRIT 29.2 % (36-48); MEAN CORPUSCULAR HEMOGLOBIN 27.5 pg (27.0-33.0); MEAN CORPUSCULAR HGB CONC 33.9 g/dL (32.0-36.0); MEAN CORPUSCULAR VOLUME 81.2 fL (79-99); PLATELET COUNT (AUTO) 229 K/uL (130-400); RED BLOOD CELL COUNT(AUTO) 3.59 MIL/uL (4.00-5.50); RED CELL DISTRIBUTION WIDTH 14.9 % (11.0-15.5); WHITE BLOOD COUNT (AUTO) 11.3 K/uL (4.8-10.8)
[2017-08-31 05:27] LABS: CREATININE 1.4 mg/dL (0.5-1.5); POTASSIUM 3.9 mmol/L (3.5-5.1)
[2017-08-31] MEDS: IPRATROPIUM/ALBUTEROL SULFATE 3 ML SOLUTION IH SCH ×4 (06:14→23:59)
[2017-08-31] MEDS: NITROGLYCERIN 1GM/1 INCH PACKET TD SCH (06:23)
[2017-08-31] MEDS: INSULIN HUMULIN R 100 UNIT/ML 3ML SQ SCH ×4 (06:44→21:34)
[2017-08-31 07:17] VITALS: BP 179/67
[2017-08-31] MEDS: CARVEDILOL 3.125 MG TABLET PO SCH ×2 (09:05→21:29)
[2017-08-31] MEDS: AMLODIPINE BESYLATE 5 MG TAB PO SCH (09:05)
[2017-08-31] MEDS: FAMOTIDINE 20MG TAB 20 MG TAB PO SCH ×2 (09:05→21:29)
[2017-08-31] MEDS: METOPROLOL TARTRATE 25 MG TAB PO SCH (09:05)
[2017-08-31] MEDS: ASPIRIN 81MG TAB.CHEW PO SCH (09:05)
[2017-08-31] MEDS: ENOXAPARIN SODIUM 40 MG/0.4 ML SYRINGE SQ SCH (09:06)
[2017-08-31] MEDS: FUROSEMIDE 10 MG/ML 4ML VIAL IVP SCH (09:11)
[2017-08-31] MEDS ORDERED: TIZANIDINE HCL 2 MG TABLET PO PRN (09:15)
[2017-08-31 11:51] VITALS: BP 155/74
[2017-08-31 16:46] VITALS: BP 157/60
[2017-08-31 19:38] VITALS: BP 166/57
[2017-08-31] MEDS: FUROSEMIDE 10 MG/ML 2ML VIAL IVP SCH (21:28)
[2017-08-31] MEDS: ATORVASTATIN CALCIUM 10 MG TABLET PO SCH (21:29)
[2017-08-31] MEDS: DRONEDARONE HYDROCHLORIDE 400 MG TABLET PO SCH (21:29)
[2017-08-31 23:34] VITALS: BP 123/56
[2017-09-01 04:00] VITALS: BP 137/47
[2017-09-01 05:37] LABS: CREATININE 1.5 mg/dL (0.5-1.5); POTASSIUM 3.7 mmol/L (3.5-5.1)
[2017-09-01] MEDS: INSULIN HUMULIN R 100 UNIT/ML 3ML SQ SCH ×4 (06:03→21:00)
[2017-09-01] MEDS: IPRATROPIUM/ALBUTEROL SULFATE 3 ML SOLUTION IH SCH ×3 (06:07→19:19)
[2017-09-01] MEDS: LEVOTHYROXINE 25 MCG TABLET PO SCH (07:04)
[2017-09-01] MEDS: LEVOTHYROXINE 112 MCG TABLET PO SCH (07:04)
[2017-09-01] MEDS: INSULIN GLARGINE 100 UNITS/ML 10 ML VIAL SQ SCH (07:05)
[2017-09-01 07:55] VITALS: BP 147/69
[2017-09-01] MEDS ORDERED: LIDOP TP (08:46)
[2017-09-01] MEDS: ASPIRIN 81 MG EC TAB PO SCH (09:00)
[2017-09-01] MEDS: ALLOPURINOL 100 MG TABLET PO SCH (09:03)
[2017-09-01] MEDS: FAMOTIDINE 20MG TAB 20 MG TAB PO SCH ×2 (09:03→22:02)
[2017-09-01] MEDS: AMLODIPINE BESYLATE 5 MG TAB PO SCH (09:03)
[2017-09-01] MEDS: CARVEDILOL 3.125 MG TABLET PO SCH ×2 (09:03→22:05)
[2017-09-01] MEDS: ASPIRIN 81MG TAB.CHEW PO SCH (09:03)
[2017-09-01] MEDS: ENOXAPARIN SODIUM 40 MG/0.4 ML SYRINGE SQ SCH (09:04)
[2017-09-01] MEDS: FUROSEMIDE 10 MG/ML 2ML VIAL IVP SCH ×2 (09:04→22:02)
[2017-09-01] MEDS: DRONEDARONE HYDROCHLORIDE 400 MG TABLET PO SCH ×2 (09:05→22:04)
[2017-09-01 11:45] VITALS: BP 131/52
[2017-09-01 16:20] VITALS: BP 139/53
[2017-09-01 19:54] VITALS: BP 156/78
[2017-09-01] MEDS: ATORVASTATIN CALCIUM 10 MG TABLET PO SCH (22:02)
[2017-09-01] MEDS: HYDRALAZINE HCL 20 MG/ML VIAL IV PRN (23:48)
[2017-09-01 23:50] VITALS: BP 179/66
[2017-09-02] MEDS: IPRATROPIUM/ALBUTEROL SULFATE 3 ML SOLUTION IH SCH ×2 (00:29→06:22)
[2017-09-02 04:05] VITALS: BP 128/56
[2017-09-02 04:53] LABS: HEMATOCRIT 29.6 % (36-48); MEAN CORPUSCULAR HEMOGLOBIN 27.6 pg (27.0-33.0); MEAN CORPUSCULAR HGB CONC 33.9 g/dL (32.0-36.0); MEAN CORPUSCULAR VOLUME 81.5 fL (79-99); PLATELET COUNT (AUTO) 284 K/uL (130-400); RED BLOOD CELL COUNT(AUTO) 3.63 MIL/uL (4.00-5.50); RED CELL DISTRIBUTION WIDTH 14.9 % (11.0-15.5); WHITE BLOOD COUNT (AUTO) 10.7 K/uL (4.8-10.8)
[2017-09-02 05:06] LABS: CREATININE 1.5 mg/dL (0.5-1.5); POTASSIUM 3.5 mmol/L (3.5-5.1)
[2017-09-02] MEDS: LEVOTHYROXINE 25 MCG TABLET PO SCH (06:11)
[2017-09-02] MEDS: LEVOTHYROXINE 112 MCG TABLET PO SCH (06:12)
[2017-09-02] MEDS: INSULIN GLARGINE 100 UNITS/ML 10 ML VIAL SQ SCH (06:14)
[2017-09-02] MEDS: INSULIN HUMULIN R 100 UNIT/ML 3ML SQ SCH (06:18)
[2017-09-02 07:37] VITALS: BP 137/58
[2017-09-02] MEDS ORDERED: METO5 PO (08:19)
[2017-09-02] MEDS: AMLODIPINE BESYLATE 5 MG TAB PO SCH (08:38)
[2017-09-02] MEDS: ASPIRIN 81MG TAB.CHEW PO SCH (08:38)
[2017-09-02] MEDS: ALLOPURINOL 100 MG TABLET PO SCH (08:38)
[2017-09-02 08:39] VITALS: BP 137/58
[2017-09-02] MEDS: ASPIRIN 81 MG EC TAB PO SCH (08:39)
[2017-09-02] MEDS: CARVEDILOL 3.125 MG TABLET PO SCH (08:39)
[2017-09-02] MEDS: FUROSEMIDE 10 MG/ML 2ML VIAL IVP SCH (08:39)
[2017-09-02] MEDS: ENOXAPARIN SODIUM 40 MG/0.4 ML SYRINGE SQ SCH (08:40)
[2017-09-02] MEDS: DRONEDARONE HYDROCHLORIDE 400 MG TABLET PO SCH (08:41)
[2017-09-02] MEDS: FAMOTIDINE 20MG TAB 20 MG TAB PO SCH (08:45)
[2017-09-02] MEDS ORDERED: METOCLOPRAMIDE 5 MG TABLET PO SCH (11:30)
[2017-10-09] MEDS ORDERED: EZET10TA26 PO (10:43)
[2017-10-09] MEDS ORDERED: OMEP20CA10 PO (10:45)
[2017-10-09] MEDS ORDERED: LOSA25TA21 PO (10:45)
== END 2017-09-02 11:05 | disposition home or self-care (01) | DRG 293 ==
LOC: EDH 01:44 → EDHIP 06:10 → OBSVTOIN 06:10 → 2DH 08:23
PROVIDERS: ADMIT Internal Medicine; ATTEND Internal Medicine
PROC: 5A09357 Assistance with Respiratory Ventilation, Less than 24 Consecutive Hours, Continuous Positive Airway Pressure (ICD-10-PCS; principal; 2017-08-31)
PROC: 5A09357 Assistance with Respiratory Ventilation, Less than 24 Consecutive Hours, Continuous Positive Airway Pressure (ICD-10-PCS; 2017-09-01)
PROC: 5A09357 Assistance with Respiratory Ventilation, Less than 24 Consecutive Hours, Continuous Positive Airway Pressure (ICD-10-PCS; 2017-09-02)
DX: I11.0 Hypertensive heart disease with heart failure (principal); I42.9 Cardiomyopathy, unspecified; I27.20 Pulmonary hypertension, unspecified; E66.01 Morbid (severe) obesity due to excess calories; I50.43 Acute on chronic combined systolic (congestive) and diastolic (congestive) heart failure; E11.9 Type 2 diabetes mellitus without complications; E78.5 Hyperlipidemia, unspecified; E03.9 Hypothyroidism, unspecified; G47.33 Obstructive sleep apnea (adult) (pediatric); I48.2 Chronic atrial fibrillation; I25.10 Atherosclerotic heart disease of native coronary artery without angina pectoris; I25.5 Ischemic cardiomyopathy; Z95.0 Presence of cardiac pacemaker; Z91.19 Patient's noncompliance with other medical treatment and regimen; Z82.49 Family history of ischemic heart disease and other diseases of the circulatory system; Z68.38 Body mass index [BMI] 38.0-38.9, adult
CPT/HCPCS: 36415; 71045; 71250; 80048; 80053; 82550; 82553; 82948; 83735; 83874; 83880; 84484; 85025; 85027; 85610; 85730; 93005; 93970; 94640; 94664; 99291; J0360; J1650; J1815; J1940; J3490

== ENCOUNTER 2017-10-10 06:18 | Observation (INO) | payer MEDICARE ==
[2017-10-09 10:04] LABS: BASOPHILS % (AUTO) 0.5 % (0.0-5.0); EOSINOPHILS % (AUTO) 3.7 % (0.0-8.0); HEMATOCRIT 31.5 % (36-48); LYMPHOCYTES % (AUTO) 16.5 % (21.0-51.0); MEAN CORPUSCULAR HEMOGLOBIN 27.9 pg (27.0-33.0); MEAN CORPUSCULAR HGB CONC 34.2 g/dL (32.0-36.0); MEAN CORPUSCULAR VOLUME 81.7 fL (79-99); MONOCYTES % (AUTO) 6.1 % (3.0-13.0); NEUTROPHILS % (AUTO) 73.2 % (40.0-77.0); PLATELET COUNT (AUTO) 280 K/uL (130-400); RED BLOOD CELL COUNT(AUTO) 3.86 MIL/uL (4.00-5.50); RED CELL DISTRIBUTION WIDTH 14.6 % (11.0-15.5)
[2017-10-09 10:05] VITALS: BP 150/71
[2017-10-09 10:16] LABS: CREATININE 1.3 mg/dL (0.5-1.5); POTASSIUM 4.6 mmol/L (3.5-5.1)
[2017-10-09 10:39] LABS: INR 0.95 (0.85-1.15); PARTIAL THROMBOPLASTIN TIME 26.1 SEC (26.3-35.5)
[~2017-10-10] VITALS: Ht 148.6 cm; Wt 91.5 kg
[2017-10-10] VITALS (12 sets, daily range): BP systolic 133–186; BP diastolic 53–83
[~2017-10-10 06:18] MED LIST changes: -AEC81 PO; +ALLO100T PO; -AMLO5TAB5 PO; -CARV3.1262 PO; +DRON400T2 PO; +EZET10TA26 PO; -FURO20TA4 PO; -HYDR20VI6 IV; -ISOS10TA8 PO; -LEVAHFA IH; +LIDOP TP; -LOSA100T2 PO; +LOSA25TA21 PO; +METO5 PO; +OMEP20CA10 PO; -SIMV40TA5 PO; -TIZA2CAP9 PO; +TIZA2TAB4 PO; -TRAM50TA4 PO
[2017-10-10] MEDS ORDERED: SERT25TA5 PO (07:30)
[2017-10-10] MEDS ORDERED: HYDR-2534 PO (07:31)
[2017-10-10] MEDS ORDERED: WATER FOR INJECTION,STERILE 20 ML VIAL IJ ONE (08:00)
[2017-10-10] MEDS ORDERED: CEFAZOLIN SODIUM 1 GM VIAL IVP ONE (08:00)
[2017-10-10] MEDS ORDERED: SODIUM CHLORIDE 0.9% 1000ML 1,000 ML IV SCH (08:00)
[2017-10-10] MEDS ORDERED: ISOVUE-300 100 ML VIAL IV ONE (10:33)
[2017-10-10] MEDS ORDERED: MIDAZOLAM HCL 1 MG/ML 2ML VIAL ONE ×4 (10:33→11:56)
[2017-10-10] MEDS ORDERED: BUPIVACAINE/PF 0.25% 30ML VIAL IJ ONE (10:33)
[2017-10-10] MEDS ORDERED: LIDOCAINE HCL 1% MDV 50ML VIAL ONE (10:33)
[2017-10-10] MEDS ORDERED: MEPERIDINE-PF 25 MG/ML SYG ONE ×4 (10:33→11:56)
[2017-10-10] MEDS ORDERED: CEFAZOLIN 1GM / D5W 50ML 50 ML ONE (10:36)
[2017-10-10] MEDS ORDERED: DILTIAZEM HCL 5 MG/ML 5 ML VIAL IVP ONE (11:40)
[2017-10-10] MEDS ORDERED: OCTYL 2-CYANOACRYLATE 1 EACH TP ONE (12:15)
[2017-10-10] MEDS ORDERED: ACETAMINOPHEN 325 MG TAB PO PRN (12:45)
[2017-10-10] MEDS ORDERED: ACETAMINOPHEN-CODEINE 300/30MG TAB PO PRN (12:45)
[2017-10-10] MEDS ORDERED: DEXTROSE 50%-WATER 50 ML DISP.SYRIN IV PRN (12:45)
[2017-10-10] MEDS ORDERED: GLUCAGON 1MG KIT 1 MG ML IM PRN (12:45)
[2017-10-10] MEDS ORDERED: DOXY100C2 PO (12:46)
[2017-10-10] MEDS ORDERED: ALBUTEROL SULFATE 0.083% 2.5 MG/3 ML INH IH PRN (13:15)
[2017-10-10] MEDS ORDERED: HYDRALAZINE HCL 20 MG/ML VIAL ONE (16:05)
[2017-10-10] MEDS ORDERED: HYDRALAZINE HCL 20 MG/ML VIAL IV PRN (16:15)
[2017-10-10] MEDS: METOCLOPRAMIDE 5 MG TABLET PO SCH ×2 (17:35→21:07)
[2017-10-10] MEDS ORDERED: PHARMACY COMMUNICATION MISC SCH (17:45)
[2017-10-10] MEDS: CEFAZOLIN SODIUM 1 GM VIAL IVP SCH (18:14)
[2017-10-10] MEDS ORDERED: CEFAZOLIN 1GM / D5W 50ML 50 ML IV SCH (18:45)
[2017-10-10] MEDS ORDERED: LATANOPROST 2.5 ML DROPS OU SCH (21:00)
[2017-10-10] MEDS ORDERED: INSULIN GLARGINE 100 UNITS/ML 10 ML VIAL SQ SCH (21:00)
[2017-10-10] MEDS ORDERED: EZETIMIBE 10 MG TAB PO SCH (21:00)
[2017-10-10] MEDS: INSULIN R PO SS1 SQ SCH (21:01)
[2017-10-11] MEDS: CEFAZOLIN SODIUM 1 GM VIAL IVP SCH (02:54)
[2017-10-11 03:48] LABS: HEMATOCRIT 28.8 % (36-48); MEAN CORPUSCULAR HEMOGLOBIN 27.1 pg (27.0-33.0); MEAN CORPUSCULAR HGB CONC 33.7 g/dL (32.0-36.0); MEAN CORPUSCULAR VOLUME 80.3 fL (79-99); PLATELET COUNT (AUTO) 233 K/uL (130-400); RED BLOOD CELL COUNT(AUTO) 3.58 MIL/uL (4.00-5.50); RED CELL DISTRIBUTION WIDTH 14.9 % (11.0-15.5); WHITE BLOOD COUNT (AUTO) 10.5 K/uL (4.8-10.8)
[2017-10-11 03:53] LABS: CREATININE 1.1 mg/dL (0.5-1.5); POTASSIUM 4.5 mmol/L (3.5-5.1)
[2017-10-11 04:02] VITALS: BP 151/60
[2017-10-11] MEDS: INSULIN R PO SS1 SQ SCH (05:55)
[2017-10-11] MEDS: METOCLOPRAMIDE 5 MG TABLET PO SCH (06:30)
[2017-10-11 07:00] VITALS: BP 145/56
[2017-10-11] MEDS ORDERED: INSULIN GLARGINE 100 UNITS/ML 10 ML VIAL SQ SCH (07:30)
[2017-10-11] MEDS ORDERED: LEVOTHYROXINE 150 MCG TABLET PO SCH (07:30)
[2017-10-11] MEDS ORDERED: **HM** VIT D3 5000 UNITS PO SCH (08:00)
[2017-10-11] MEDS ORDERED: SERTRALINE HCL 50 MG TABLET PO SCH (09:00)
[2017-10-11] MEDS ORDERED: LOSARTAN 50 MG TABLET PO SCH (09:00)
[2017-10-11] MEDS ORDERED: DRONEDARONE HYDROCHLORIDE 400 MG TABLET PO SCH (09:00)
[2017-10-11] MEDS ORDERED: PANTOPRAZOLE SODIUM 40 MG TABLET.DR PO SCH (09:00)
[2017-10-11] MEDS ORDERED: FAMOTIDINE 20MG TAB 20 MG TAB PO SCH (09:00)
[2017-10-11] MEDS ORDERED: ALLOPURINOL 100 MG TABLET PO SCH (09:00)
[2017-10-11] MEDS ORDERED: HYDROCHLOROTHIAZIDE 25 MG TABLET PO SCH (09:00)
== END 2017-10-11 10:59 | disposition home or self-care (01) ==
LOC: DAH 06:18 → DAHIP 06:19 → 2AH 16:22
PROVIDERS: ADMIT Internal Medicine; ATTEND Internal Medicine
DX: I25.5 Ischemic cardiomyopathy (principal); I27.20 Pulmonary hypertension, unspecified; I25.10 Atherosclerotic heart disease of native coronary artery without angina pectoris; E11.9 Type 2 diabetes mellitus without complications; I11.0 Hypertensive heart disease with heart failure; I50.42 Chronic combined systolic (congestive) and diastolic (congestive) heart failure; E78.5 Hyperlipidemia, unspecified; E03.9 Hypothyroidism, unspecified; G47.33 Obstructive sleep apnea (adult) (pediatric); I42.9 Cardiomyopathy, unspecified; I48.91 Unspecified atrial fibrillation; J45.909 Unspecified asthma, uncomplicated; Z82.49 Family history of ischemic heart disease and other diseases of the circulatory system; Z95.810 Presence of automatic (implantable) cardiac defibrillator; Z79.899 Other long term (current) drug therapy; Z83.3 Family history of diabetes mellitus
CPT/HCPCS: 33225; 33264; 36415 ×2; 71046; 80048 ×2; 82948 ×6; 85025; 85027; 85610; 85730; 93005; 94664; 96372 ×2; 96374; 96376; A4218 ×3; A4606; C1769 ×2; C1882; C1894; C1900; G0378 ×29; J0360; J0690 ×4; J1815; J2175 ×4; J2250 ×4; J3490 ×3; J7030; Q9967; 99156; 99157

== ENCOUNTER 2018-02-27 10:05 | Inpatient (IN) | payer MEDICARE ==
[~2018-02-27] VITALS: Ht 152.4 cm; Wt 88.9 kg
[~2018-02-27 10:05] MED LIST changes: +DOXY100C2 PO; +HYDR-2534 PO; +LOSA25TA16 PO; -LOSA25TA21 PO; +METF-444 PO; -METF500T6 PO; +SERT25TA5 PO; -TIZA2TAB4 PO
[2018-02-27 10:24] LABS: BASOPHILS % (AUTO) 0.6 % (0.0-5.0); EOSINOPHILS % (AUTO) 2.4 % (0.0-8.0); HEMATOCRIT 34.9 % (36-48); LYMPHOCYTES % (AUTO) 20.5 % (21.0-51.0); MEAN CORPUSCULAR HEMOGLOBIN 27.7 pg (27.0-33.0); MONOCYTES % (AUTO) 6.1 % (3.0-13.0); NEUTROPHILS % (AUTO) 70.4 % (40.0-77.0); PLATELET COUNT (AUTO) 271 K/uL (130-400); RED BLOOD CELL COUNT(AUTO) 4.16 MIL/uL (4.00-5.50); RED CELL DISTRIBUTION WIDTH 16.2 % (11.0-15.5); WHITE BLOOD COUNT (AUTO) 12.3 K/uL (4.8-10.8)
[2018-02-27 10:33] LABS: CREATININE 1.1 mg/dL (0.5-1.5); POTASSIUM 4.9 mmol/L (3.5-5.1)
[2018-02-27 10:37] LABS: ALBUMIN 3.6 g/dL (3.5-5.0); BILIRUBIN,TOTAL 0.4 mg/dL (0.2-1.0); TOTAL PROTEIN, SERUM 8.1 g/dL (6.0-8.3)
[2018-02-27] MEDS ORDERED: NITROGLYCERIN 1GM/1 INCH PACKET TD ONE (10:39)
[2018-02-27] MEDS ORDERED: FUROSEMIDE 10 MG/ML 4ML VIAL ONE (10:39)
[2018-02-27 10:40] LABS: INR 0.93 (0.85-1.15); PARTIAL THROMBOPLASTIN TIME 27.9 SEC (26.3-35.5); PROTHROMBIN TIME 9.8 SEC (9.6-11.6)
[2018-02-27 10:47] LABS: B-TYPE NATRIURETIC PEPTIDE 455 pg/mL (0-100)
[2018-02-27] MEDS ORDERED: LACTULOSE 20 GM/30 ML UDCUP PO PRN (11:15)
[2018-02-27] MEDS ORDERED: MAG HYDROX/AL HYDROX/SIMETH ES 30 ML SUSP UDCUP PO PRN (11:15)
[2018-02-27] MEDS ORDERED: HYDRALAZINE HCL 20 MG/ML VIAL IV PRN (11:15)
[2018-02-27] MEDS ORDERED: NITROGLYCERIN 0.4 MG SL TAB SL PRN (11:15)
[2018-02-27] MEDS ORDERED: ZOLPIDEM TARTRATE 5 MG TAB PO PRN (11:15)
[2018-02-27] MEDS ORDERED: ONDANSETRON HCL 4 MG/2 ML VIAL IV PRN ×2 (11:15→12:15)
[2018-02-27] MEDS ORDERED: MORPHINE SULFATE 2 MG/ML 1ML SYG IV PRN (11:15)
[2018-02-27] MEDS ORDERED: MORPHINE SULFATE 4 MG/1ML SYG IV PRN (11:15)
[2018-02-27] MEDS: INSULIN LISPRO 100 UNIT/ML 3ML SQ SCH ×2 (11:30→17:26)
[2018-02-27] MEDS ORDERED: ACETAMINOPHEN 325 MG TAB PO PRN (12:15)
[2018-02-27 12:31] LABS: CREATINE KINASE, TOTAL 41 U/L (21-232); MYOGLOBIN 47 ng/mL (10-92); TROPONIN I < 0.04 ng/mL (0.00-0.06)
[2018-02-27 12:36] LABS: HEMOGLOBIN A1C 8.2 % (4.0-6.0)
[2018-02-27 13:25] LABS: ABG BASE EXCESS -1.6 mmol/L (-2.0-3.0); ABG HCO3 24.3 mmol/L (21.0-28.0); ABG OXYGEN SATURATION 98.8 % (95.0-99.0); ABG PCO2 45 mmHg (32-45)
[2018-02-27 13:30] VITALS: BP 147/63
[2018-02-27] MEDS ORDERED: FUROSEMIDE 10 MG/ML 4ML VIAL IVP SCH (14:00)
[2018-02-27] MEDS ORDERED: LOSA25TA16 PO (14:51)
[2018-02-27] MEDS ORDERED: METF-444 PO (14:58)
[2018-02-27 16:00] VITALS: BP 141/61
[2018-02-27] MEDS: INSULIN HUMULIN R 100 UNIT/ML 3ML SQ SCH ×2 (16:30→21:17)
[2018-02-27] MEDS: METOCLOPRAMIDE 5 MG TABLET PO SCH ×2 (17:25→21:14)
[2018-02-27] MEDS: IPRATROPIUM/ALBUTEROL SULFATE 3 ML SOLUTION IH SCH ×2 (18:36→23:03)
[2018-02-27 19:55] VITALS: BP 136/52
[2018-02-27] MEDS: Bimatoprost (Lumigan 0.01% Ophth Soln) 1 DROP OU SCH (21:00)
[2018-02-27] MEDS: FUROSEMIDE 10 MG/ML 4ML VIAL IVP SCH (21:14)
[2018-02-27] MEDS: EZETIMIBE 10 MG TAB PO SCH (21:14)
[2018-02-27] MEDS: INSULIN GLARGINE 100 UNITS/ML 10 ML VIAL SQ SCH (21:16)
[2018-02-27] MEDS: ACETAMINOPHEN 325 MG TAB PO PRN (21:19)
[2018-02-27 21:28] LABS: CREATINE KINASE, TOTAL 44 U/L (21-232); MYOGLOBIN 71 ng/mL (10-92); TROPONIN I < 0.04 ng/mL (0.00-0.06)
[2018-02-27 23:43] VITALS: BP 155/62
[2018-02-28 03:11] LABS: HEMATOCRIT 30.1 % (36-48); MEAN CORPUSCULAR HEMOGLOBIN 27.3 pg (27.0-33.0); MEAN CORPUSCULAR HGB CONC 33.1 g/dL (32.0-36.0); MEAN CORPUSCULAR VOLUME 82.6 fL (79-99); PLATELET COUNT (AUTO) 205 K/uL (130-400); RED BLOOD CELL COUNT(AUTO) 3.64 MIL/uL (4.00-5.50); RED CELL DISTRIBUTION WIDTH 16.2 % (11.0-15.5); WHITE BLOOD COUNT (AUTO) 9.6 K/uL (4.8-10.8)
[2018-02-28 03:25] LABS: CARBON DIOXIDE 28 mmol/L (21-32); CHLORIDE 106 mmol/L (101-111); CREATINE KINASE, TOTAL 69 U/L (21-232); CREATININE 1.3 mg/dL (0.5-1.5); GLOMERULAR FILTR. RATE CALC 42 mL/min (>60); GLUCOSE,RANDOM 146 mg/dL (70-105); MYOGLOBIN 88 ng/mL (10-92); POTASSIUM 4.6 mmol/L (3.5-5.1); SODIUM SERUM 141 mmol/L (136-145); TROPONIN I < 0.04 ng/mL (0.00-0.06); UREA NITROGEN, BLOOD 45 mg/dL (7-18)
[2018-02-28 03:54] VITALS: BP 157/61
[2018-02-28] MEDS: IPRATROPIUM/ALBUTEROL SULFATE 3 ML SOLUTION IH SCH ×4 (06:02→23:40)
[2018-02-28] MEDS: METOCLOPRAMIDE 5 MG TABLET PO SCH ×4 (06:50→21:06)
[2018-02-28] MEDS: INSULIN LISPRO 100 UNIT/ML 3ML SQ SCH ×3 (06:51→17:10)
[2018-02-28] MEDS: INSULIN HUMULIN R 100 UNIT/ML 3ML SQ SCH ×4 (06:51→21:10)
[2018-02-28 07:00] VITALS: BP 155/63
[2018-02-28] MEDS ORDERED: LEVOTHYROXINE 150 MCG TABLET PO SCH (07:30)
[2018-02-28] MEDS: Cholecalciferol (Vitamin D3) 5,000 UNIT PO SCH (08:00)
[2018-02-28] MEDS ORDERED: PANTOPRAZOLE 40 MG/VIAL IVP SCH (09:00)
[2018-02-28] MEDS ORDERED: LOSARTAN 50 MG TABLET PO SCH (09:00)
[2018-02-28] MEDS: HYDROCHLOROTHIAZIDE 25 MG TABLET PO SCH (09:54)
[2018-02-28] MEDS: PANTOPRAZOLE SODIUM 40 MG TABLET.DR PO SCH (09:54)
[2018-02-28] MEDS: ALLOPURINOL 100 MG TABLET PO SCH (09:54)
[2018-02-28] MEDS: LOSARTAN 100 MG TABLET PO SCH (09:54)
[2018-02-28] MEDS: FUROSEMIDE 10 MG/ML 4ML VIAL IVP SCH ×2 (09:55→21:05)
[2018-02-28] MEDS: DRONEDARONE HYDROCHLORIDE 400 MG TABLET PO SCH (09:55)
[2018-02-28] MEDS: ENOXAPARIN SODIUM 40 MG/0.4 ML SYRINGE SQ SCH (09:56)
[2018-02-28 11:00] VITALS: BP 151/55
[2018-02-28 16:00] VITALS: BP 131/54
[2018-02-28 19:09] VITALS: BP 129/42
[2018-02-28] MEDS: Bimatoprost (Lumigan 0.01% Ophth Soln) 1 DROP OU SCH (21:00)
[2018-02-28] MEDS: EZETIMIBE 10 MG TAB PO SCH (21:06)
[2018-02-28] MEDS: CARVEDILOL 3.125 MG TABLET PO SCH (21:07)
[2018-02-28] MEDS: INSULIN GLARGINE 100 UNITS/ML 10 ML VIAL SQ SCH (21:12)
[2018-02-28 23:08] VITALS: BP 143/62
[2018-03-01 03:00] VITALS: BP 125/52
[2018-03-01 03:46] LABS: HEMATOCRIT 30.1 % (36-48); MEAN CORPUSCULAR HEMOGLOBIN 28.3 pg (27.0-33.0); MEAN CORPUSCULAR VOLUME 83.1 fL (79-99); PLATELET COUNT (AUTO) 225 K/uL (130-400); RED BLOOD CELL COUNT(AUTO) 3.62 MIL/uL (4.00-5.50); RED CELL DISTRIBUTION WIDTH 16.4 % (11.0-15.5); WHITE BLOOD COUNT (AUTO) 9.8 K/uL (4.8-10.8)
[2018-03-01 04:03] LABS: B-TYPE NATRIURETIC PEPTIDE 154 pg/mL (0-100)
[2018-03-01 04:04] LABS: CREATININE 1.7 mg/dL (0.5-1.5); MAGNESIUM 1.7 mg/dL (1.80-2.40); POTASSIUM 4.4 mmol/L (3.5-5.1); THYROID STIMULATING HORMONE 0.3 uIU/mL (0.36-3.74)
[2018-03-01] MEDS ORDERED: LOSA100T20 PO (05:30)
[2018-03-01] MEDS ORDERED: LEVO125T11 PO (05:30)
[2018-03-01] MEDS ORDERED: TORS20TA4 PO (05:30)
[2018-03-01] MEDS ORDERED: LEVOTHYROXINE 125 MCG TABLET PO SCH (06:30)
[2018-03-01] MEDS: METOCLOPRAMIDE 5 MG TABLET PO SCH ×2 (06:30→11:16)
[2018-03-01] MEDS: INSULIN HUMULIN R 100 UNIT/ML 3ML SQ SCH ×2 (06:32→11:30)
[2018-03-01] MEDS: INSULIN LISPRO 100 UNIT/ML 3ML SQ SCH ×2 (06:34→12:00)
[2018-03-01] MEDS: IPRATROPIUM/ALBUTEROL SULFATE 3 ML SOLUTION IH SCH ×2 (06:50→11:17)
[2018-03-01 08:05] VITALS: BP 131/56
[2018-03-01] MEDS: ALLOPURINOL 100 MG TABLET PO SCH (08:59)
[2018-03-01] MEDS: PANTOPRAZOLE SODIUM 40 MG TABLET.DR PO SCH (08:59)
[2018-03-01] MEDS: LOSARTAN 100 MG TABLET PO SCH (08:59)
[2018-03-01] MEDS: HYDROCHLOROTHIAZIDE 25 MG TABLET PO SCH (08:59)
[2018-03-01] MEDS: FUROSEMIDE 10 MG/ML 4ML VIAL IVP SCH (09:00)
[2018-03-01] MEDS: CARVEDILOL 3.125 MG TABLET PO SCH (09:00)
[2018-03-01] MEDS: DRONEDARONE HYDROCHLORIDE 400 MG TABLET PO SCH (09:00)
[2018-03-01] MEDS: ENOXAPARIN SODIUM 40 MG/0.4 ML SYRINGE SQ SCH (09:01)
[2018-03-01] MEDS: Cholecalciferol (Vitamin D3) 5,000 UNIT PO SCH (09:03)
[2018-03-01] MEDS: ACETAMINOPHEN 325 MG TAB PO PRN (09:13)
[2018-03-01 12:05] VITALS: BP 111/43
== END 2018-03-01 13:18 | disposition home or self-care (01) | DRG 291 ==
LOC: EDH 10:05 → EDHIP 11:09 → 2AH 12:56
PROVIDERS: ADMIT Internal Medicine; ATTEND Internal Medicine
PROC: 5A09357 Assistance with Respiratory Ventilation, Less than 24 Consecutive Hours, Continuous Positive Airway Pressure (ICD-10-PCS; principal; 2018-02-27)
DX: I11.0 Hypertensive heart disease with heart failure (principal); J96.01 Acute respiratory failure with hypoxia; I50.43 Acute on chronic combined systolic (congestive) and diastolic (congestive) heart failure; I42.9 Cardiomyopathy, unspecified; E11.9 Type 2 diabetes mellitus without complications; I25.10 Atherosclerotic heart disease of native coronary artery without angina pectoris; E78.5 Hyperlipidemia, unspecified; E66.01 Morbid (severe) obesity due to excess calories; E03.9 Hypothyroidism, unspecified; G47.33 Obstructive sleep apnea (adult) (pediatric); Z96.659 Presence of unspecified artificial knee joint; M19.90 Unspecified osteoarthritis, unspecified site; K21.9 Gastro-esophageal reflux disease without esophagitis; J45.909 Unspecified asthma, uncomplicated; Z95.810 Presence of automatic (implantable) cardiac defibrillator; Z82.0 Family history of epilepsy and other diseases of the nervous system; Z82.3 Family history of stroke; Z82.49 Family history of ischemic heart disease and other diseases of the circulatory system; Z82.5 Family history of asthma and other chronic lower respiratory diseases; Z83.3 Family history of diabetes mellitus; Z79.4 Long term (current) use of insulin; Z79.899 Other long term (current) drug therapy; Z90.49 Acquired absence of other specified parts of digestive tract; Z68.38 Body mass index [BMI] 38.0-38.9, adult
CPT/HCPCS: 36415; 36600; 71045; 80048; 80053; 82550; 82803; 82948; 83036; 83735; 83874; 83880; 84443; 84484; 85025; 85027; 85610; 85730; 93005; 93306; 94640; 94660; 94664; 99291; J1650; J1815; J1940

== ENCOUNTER → 2018-04-02 | Outpatient (CLI) | payer MEDICARE ==
[~2018-04-02] VITALS: Ht 152.4 cm; Wt 92.1 kg
[~2018-04-02] MED LIST changes: +LEVO125T11 PO; -LEVO150T11 PO; +LOSA100T20 PO; -LOSA25TA16 PO; +REGADENOSON 0.4 MG/5 ML PF SYG IVP SCH; +TORS20TA4 PO
== END | disposition home or self-care (01) ==
LOC: SHCH 08:04
PROVIDERS: ATTEND Internal Medicine Cardiovascular Disease
DX: I11.0 Hypertensive heart disease with heart failure (principal); I50.42 Chronic combined systolic (congestive) and diastolic (congestive) heart failure; I25.119 Atherosclerotic heart disease of native coronary artery with unspecified angina pectoris
CPT/HCPCS: 78452; 93017; 96374; A9500 ×2; J2785

== ENCOUNTER → 2018-10-09 | Outpatient (CLI) | payer MEDICARE ==
[~2018-10-09] MED LIST changes: -ALBU8.5H8 IH; -BIMA12.5OS OU; -CHOL50004 PO; -DOXY100C2 PO; -DRON400T2 PO; -EZET10TA26 PO; +EZET10TA48 PO; +FENO54TA6 PO; +FOLI1TAB15 PO; +ICOS1CAP PO; -INSLAN SQ; +INSU200I4 SQ; -INSU3INS3 SQ; +LEVO112T7 PO; -LEVO125T11 PO; +LEVO500T2 PO; -LIDOP TP; +LINA145C PO; -LOSA100T20 PO; -METF-444 PO; +METF-526 PO; -METO5 PO; -OMEP20CA10 PO; -REGADENOSON 0.4 MG/5 ML PF SYG IVP SCH
== END | disposition home or self-care (01) ==
LOC: SHCH 09:23
PROVIDERS: ATTEND Internal Medicine Cardiovascular Disease
DX: I87.2 Venous insufficiency (chronic) (peripheral) (principal)
CPT/HCPCS: 93971

== ENCOUNTER 2018-12-24 06:09 | Day surgery (SDC) | payer MEDICARE ==
[~2018-12-24] VITALS: Ht 152.4 cm; Wt 91.2 kg
[~2018-12-24 06:09] MED LIST changes: -LEVO500T2 PO; +LOSA25TA41 PO; +SODIUM CHLORIDE 0.9% 1000ML 1,000 ML IV ONE
[2018-12-24 06:53] VITALS: BP 155/55
[2018-12-24] MEDS ORDERED: PANT40TA25 PO (07:04)
[2018-12-24] MEDS ORDERED: ESCI5TAB10 PO (07:04)
[2018-12-24] MEDS ORDERED: LINA290C PO (07:04)
[2018-12-24] MEDS ORDERED: CHOL500050 PO (07:04)
--- NOTE | 2018-12-24 07:08 | NUR ---
NURSING PT STATES SHE TOOK LAST OF HER PREP AT 0400 THIS AM ANESTHESIA AWARE AND WILL POSTPONE PROC TILL 9 AM. PT AWARE OF DELAY AND OK WITH THAT HER BS IS ALSO 74 AND HUANG CONTRERAS MADE AWARE AND ORDERED PT TO BE MONITORED FOR SYMPTOMS. WILL CONT TO MONITOR Addendum: 12/24/18 at 0710 by SAUD ESPINO RN Amended: Links added.
[2018-12-24 10:05] VITALS: BP 126/40
[2018-12-24 10:17] VITALS: BP 157/50
== END 2018-12-24 11:10 | disposition home or self-care (01) ==
LOC: DAH 06:09 → ENDO 06:09
PROVIDERS: ATTEND Internal Medicine Gastroenterology
DX: K59.04 Chronic idiopathic constipation (principal); D12.4 Benign neoplasm of descending colon; D12.2 Benign neoplasm of ascending colon; E78.5 Hyperlipidemia, unspecified; I25.10 Atherosclerotic heart disease of native coronary artery without angina pectoris; M19.90 Unspecified osteoarthritis, unspecified site; E11.9 Type 2 diabetes mellitus without complications; E03.9 Hypothyroidism, unspecified; J45.909 Unspecified asthma, uncomplicated; I11.9 Hypertensive heart disease without heart failure; Z90.49 Acquired absence of other specified parts of digestive tract; Z98.890 Other specified postprocedural states; Z79.899 Other long term (current) drug therapy; Z79.4 Long term (current) use of insulin; Z88.3 Allergy status to other anti-infective agents; Z88.8 Allergy status to other drugs, medicaments and biological substances; Z86.010 Personal history of colon polyps; Z95.0 Presence of cardiac pacemaker; Z83.3 Family history of diabetes mellitus; Z82.5 Family history of asthma and other chronic lower respiratory diseases; Z82.49 Family history of ischemic heart disease and other diseases of the circulatory system
CPT/HCPCS: 45385; 82948 ×3; 88305; A4606; J7030

== ENCOUNTER → 2019-01-15 | Outpatient (CLI) | payer MEDICARE ==
[~2019-01-15] MED LIST changes: +CHOL500050 PO; +ESCI5TAB10 PO; -FENO54TA6 PO; -FOLI1TAB15 PO; -HYDR-2534 PO; -LINA145C PO; +LINA290C PO; -METF-526 PO; +PANT40TA25 PO; -SERT25TA5 PO; -SODIUM CHLORIDE 0.9% 1000ML 1,000 ML IV ONE
== END | disposition home or self-care (01) ==
LOC: RAH 12:10
PROVIDERS: ATTEND Internal Medicine Cardiovascular Disease
DX: J44.9 Chronic obstructive pulmonary disease, unspecified (principal); I11.0 Hypertensive heart disease with heart failure; I50.42 Chronic combined systolic (congestive) and diastolic (congestive) heart failure; I48.0 Paroxysmal atrial fibrillation
CPT/HCPCS: 71046

== ENCOUNTER 2019-01-17 14:49 | Emergency (ER) | payer MEDICARE ==
[2019-01-17 15:35] LABS: CREATININE 1.3 mg/dL (0.5-1.5); POTASSIUM 4.6 mmol/L (3.5-5.1)
== END 2019-01-17 16:19 | disposition home or self-care (01) ==
LOC: EDH 14:49
DX: E87.5 Hyperkalemia (principal)
CPT/HCPCS: 36415; 80048; 93005

== ENCOUNTER 2019-03-13 06:21 | Day surgery (SDC) | payer MEDICARE ==
[2019-03-11 10:05] LABS: BASOPHILS % (AUTO) 0.6 % (0.0-5.0); EOSINOPHILS % (AUTO) 3.3 % (0.0-8.0); HEMATOCRIT 32.9 % (36-48); LYMPHOCYTES % (AUTO) 21.6 % (21.0-51.0); MEAN CORPUSCULAR HEMOGLOBIN 27.4 pg (27.0-33.0); MEAN CORPUSCULAR HGB CONC 33.1 g/dL (32.0-36.0); MEAN CORPUSCULAR VOLUME 82.8 fL (79-99); MONOCYTES % (AUTO) 6.4 % (3.0-13.0); NEUTROPHILS % (AUTO) 68.1 % (40.0-77.0); PLATELET COUNT (AUTO) 252 K/uL (130-400); RED BLOOD CELL COUNT(AUTO) 3.97 MIL/uL (4.00-5.50); RED CELL DISTRIBUTION WIDTH 16.1 % (11.0-15.5); WHITE BLOOD COUNT (AUTO) 9.8 K/uL (4.8-10.8)
[2019-03-11 10:12] LABS: CREATININE 1.5 mg/dL (0.5-1.5); POTASSIUM 5.2 mmol/L (3.5-5.1)
[2019-03-11 10:29] LABS: APPEARANCE,URINE Cloudy (CLEAR); BILIRUBIN,URINE Negative (NEGATIVE); COLOR,URINE Yellow (YELLOW); GLUCOSE, URINE (UA) 500 mg/dL (NEGATIVE); KETONES,URINE Negative (NEGATIVE); LEUKOCYTE ESTERASE ,URINE Negative (NEGATIVE); NITRATE,URINE Negative (NEGATIVE); OCCULT BLOOD,URINE Negative (NEGATIVE); PROTEIN,URINE 300 mg/dL (NEGATIVE); UROBILINOGEN,URINE 0.2 mg/dL (0.2-1.0)
[2019-03-11 10:40] LABS: INR 0.96 (0.85-1.15); PROTHROMBIN TIME 10.1 SEC (9.6-11.6)
[2019-03-11 10:41] LABS: BACTERIA,URINE Many /HPF (None Seen); RBC,URINE 0-1 /HPF (0-1); WBC,URINE 0-1 /HPF (0-1)
[2019-03-11 10:42] VITALS: BP 191/73
--- NOTE | 2019-03-11 10:52 | NUR ---
Called Bereket DIAZ to advised of pt bs of 411, allergy to iodine, bmp results and the fact that pt voiced that she will not have any available to stay with her or be here for procedure , pt stated she will have somone pick her up from post procedure but no one can stay with her at home, pending call back from [place], left message.
--- NOTE | 2019-03-11 11:22 | NUR ---
Bereket [place] PA called back advised him of iodine allergy and bun of 61 and cash management clerk of 1.6, no need for orders due to procedure being a right heart cath and no iodine being injected. Advised of pt potassium of 5.2 and pt on potassium of 20meq daily, but stopped a week ago, new order to recheck potassium day of. Advised Bereket [place] that pt does not have anyone to stay with patient and no concerns about matter per Bereket.
--- NOTE | 2019-03-11 11:27 | NUR ---
LATE ENTRY, ALSO ADVISED NAVI DIAZ OF BS OF 411 AND PT HAD NOT TAKEN HER LEVEMIR THIS AM, NO NEW ORDER. PT SELF ADM INSULIN AT THIS TIME .
--- NOTE | 2019-03-12 15:40 | NUR ---
NAVI DIAZ, NOTIFIED OF ABNORMAL CXR. NO NEW ORDERS RECEIVED.
[~2019-03-13] VITALS: Ht 147.3 cm; Wt 90.5 kg
[2019-03-13] VITALS (9 sets, daily range): BP systolic 132–202; BP diastolic 37–68
[~2019-03-13 06:21] MED LIST changes: +BIMA12.5OS OU; -CHOL500050 PO; -ESCI5TAB10 PO; +FURO40TA5 PO; -ICOS1CAP PO; +INSU100I21 SQ; -INSU200I4 SQ; +MAG OXIDE PO; +POTA20TA82 PO; +PRAV10TA39 PO; +SODIUM CHLORIDE 0.9% 500ML 500 ML IV SCH; -TORS20TA4 PO
[2019-03-13] MEDS ORDERED: SODIUM CHLORIDE 0.9% 1000ML 1,000 ML IV ONE (06:36)
[2019-03-13] MEDS ORDERED: FURO40TA5 PO (07:11)
[2019-03-13] MEDS ORDERED: inhaler IH (07:26)
[2019-03-13] MEDS ORDERED: LIDOCAINE HCL 2% 20ML ONE (07:55)
[2019-03-13] MEDS ORDERED: NITROGLYCERIN 5 MG/ML 10 ML VIAL IV ONE (07:55)
[2019-03-13] MEDS ORDERED: FENTANYL CITRATE PF 50 MCG/1 ML 2ML VIAL ONE ×2 (09:09→09:54)
[2019-03-13] MEDS ORDERED: LABETALOL 20 MG/4 ML DISP.SYRIN IV ONE (09:54)
[2019-03-13] MEDS ORDERED: FUROSEMIDE 10 MG/ML 4ML VIAL IVP SCH (10:45)
[2019-03-13] MEDS ORDERED: POTASSIUM CHLORIDE 20 MEQ ERTAB PO SCH (10:45)
--- NOTE | 2019-03-13 11:30 | NUR ---
DIET PT TOLERATING DIET WELL, PCP ASSISTING PT.
--- NOTE | 2019-03-13 13:45 | NUR ---
DISCHARGE PT DISCHARGED VIA WHEELCHAIR WITH SON AND PROVIDER. PT STABLE. NO COMPLAINTS MADE. ASSISTED TO BATHROOM PRIOR TO DISCHARGE, VOIDED WITHOUT ANY PROBLEMS. CATH SITE TO RIGHT GROIN REMAINS SOFT, DRESSING DRY AND INTACT, NO OOZING NO HEMATOMA NOTED. DISCHARGE INSTRUCTIONS GIVEN TO SON AND PROVIDER. BOTH VERBALIZED UNDERSTANDING.
== END 2019-03-13 13:45 | disposition home or self-care (01) ==
LOC: DAH 06:21
PROVIDERS: ATTEND Internal Medicine Cardiovascular Disease
DX: I11.0 Hypertensive heart disease with heart failure (principal); I50.42 Chronic combined systolic (congestive) and diastolic (congestive) heart failure; E78.5 Hyperlipidemia, unspecified; E03.9 Hypothyroidism, unspecified; M19.90 Unspecified osteoarthritis, unspecified site; J45.909 Unspecified asthma, uncomplicated; Z95.810 Presence of automatic (implantable) cardiac defibrillator; Z79.4 Long term (current) use of insulin; Z79.899 Other long term (current) drug therapy; Z88.8 Allergy status to other drugs, medicaments and biological substances
CPT/HCPCS: 36415 ×2; 71045; 80048; 81001; 82948 ×2; 84132; 85025; 85610; 85730; 93005; 93451; A4215; A4216; A4221; A4222; A4223 ×3; A4606; A4663; C1894 ×2; J1644; J1940; J3010 ×2; J3490; J7030; 99156; 99157

== ENCOUNTER → 2019-04-25 | Outpatient (CLI) | payer MEDICARE ==
[~2019-04-25] MED LIST changes: +CHOL500050 PO; +DOXY100C2 PO; +FLUT1DIS3 IH; -FURO40TA5 PO; +GLIP-162 PO; +ICOS1CAP PO; -LOSA25TA41 PO; +NITR0.4T50 SL; +OLME20TA22 PO; -POTA20TA82 PO; +PRED20TA3 PO; -SODIUM CHLORIDE 0.9% 500ML 500 ML IV SCH; +TORS100T16 PO; +inhaler IH
== END | disposition home or self-care (01) ==
LOC: RAH 10:19
PROVIDERS: ATTEND Family Medicine
DX: Z12.31 Encounter for screening mammogram for malignant neoplasm of breast (principal)
CPT/HCPCS: 77067

== ENCOUNTER 2019-04-30 06:00 | Day surgery (SDC) | payer MEDICARE ==
[~2019-04-30] VITALS: Ht 157.5 cm; Wt 90.7 kg
[2019-04-30] MEDS ORDERED: SODIUM CHLORIDE 0.9% 1000ML 1,000 ML IV ONE (06:27)
[2019-04-30 07:36] VITALS: BP 161/58
[2019-04-30] MEDS ORDERED: [UNRECOGNIZED DRUG - OTHER] (07:58)
[2019-04-30] MEDS ORDERED: PROPOFOL 10 MG/ML 20ML VIAL IV ONE ×2 (09:06→09:47)
[2019-04-30 10:14] VITALS: BP 142/52
[2019-04-30 10:15] VITALS: BP 135/76
[2019-04-30 10:20] VITALS: BP 152/72
[2019-04-30 10:25] VITALS: BP 154/75
== END 2019-04-30 10:50 | disposition home or self-care (01) ==
LOC: ENDO 06:00 → DAH 06:00 → ENDO 10:50
PROVIDERS: ATTEND Internal Medicine Gastroenterology
DX: K59.00 Constipation, unspecified (principal); D12.2 Benign neoplasm of ascending colon; I25.10 Atherosclerotic heart disease of native coronary artery without angina pectoris; E78.5 Hyperlipidemia, unspecified; J45.909 Unspecified asthma, uncomplicated; M19.90 Unspecified osteoarthritis, unspecified site; E03.9 Hypothyroidism, unspecified; E11.69 Type 2 diabetes mellitus with other specified complication; I11.9 Hypertensive heart disease without heart failure; Z95.0 Presence of cardiac pacemaker; Z79.899 Other long term (current) drug therapy; Z86.010 Personal history of colon polyps; Z90.49 Acquired absence of other specified parts of digestive tract
CPT/HCPCS: 45381; 45385; 82948 ×3; 88305; A4215; A4221; A4222; A4223; A4606; A4615; A4663; J2704 ×2; J7030

== ENCOUNTER 2019-10-24 07:35 | Day surgery (SDC) | payer MEDICARE ==
[2019-10-24] VITALS (7 sets, daily range): BP systolic 94–162; BP diastolic 50–87
[~2019-10-24] VITALS: Ht 152.4 cm; Wt 89.4 kg
[~2019-10-24 07:35] MED LIST changes: +SODIUM CHLORIDE 0.9% 1000ML 1,000 ML IV ONE; +[UNRECOGNIZED DRUG - OTHER]
[2019-10-24] MEDS ORDERED: PROPOFOL 10 MG/ML 20ML VIAL IV ONE (09:49)
== END 2019-10-24 10:40 | disposition home or self-care (01) ==
LOC: DAH 07:35 → ENDO 07:35
PROVIDERS: ATTEND Internal Medicine Gastroenterology
DX: K59.00 Constipation, unspecified (principal); E11.69 Type 2 diabetes mellitus with other specified complication; E78.5 Hyperlipidemia, unspecified; J45.909 Unspecified asthma, uncomplicated; I25.10 Atherosclerotic heart disease of native coronary artery without angina pectoris; D12.2 Benign neoplasm of ascending colon; E03.9 Hypothyroidism, unspecified; I50.9 Heart failure, unspecified; I11.0 Hypertensive heart disease with heart failure; Z95.0 Presence of cardiac pacemaker; Z86.010 Personal history of colon polyps; Z79.899 Other long term (current) drug therapy; Z11.59 Encounter for screening for other viral diseases
CPT/HCPCS: 36415; 45378; 82948 ×2; A4215; A4221; A4222; A4223; A4606; A4615; A4663; J2704; J7030; U0003; G0105

== ENCOUNTER 2020-01-29 06:53 | Inpatient (IN) | payer MEDICARE ==
[~2020-01-29] VITALS: Ht 152.4 cm; Wt 88.5 kg
[~2020-01-29 06:53] MED LIST changes: -PANT40TA25 PO; +PANT40TA54 PO; -SODIUM CHLORIDE 0.9% 1000ML 1,000 ML IV ONE
[2020-01-29] MEDS ORDERED: IPRATROPIUM/ALBUTEROL SULFATE 3 ML SOLUTION IH ONE ×2 (07:10→08:20)
[2020-01-29 07:38] LABS: BASOPHILS % (AUTO) 0.5 % (0.0-5.0); HEMATOCRIT 33.3 % (36-48); LYMPHOCYTES % (AUTO) 20.2 % (21.0-51.0); MEAN CORPUSCULAR HEMOGLOBIN 24.9 pg (27.0-33.0); MEAN CORPUSCULAR HGB CONC 30.9 g/dL (32.0-36.0); MEAN CORPUSCULAR VOLUME 80.4 fL (79-99); NEUTROPHILS % (AUTO) 69.9 % (40.0-77.0); PLATELET COUNT (AUTO) 241 K/uL (130-400); RED BLOOD CELL COUNT(AUTO) 4.14 MIL/uL (4.00-5.50)
[2020-01-29] MEDS ORDERED: FUROSEMIDE 10 MG/ML 4ML VIAL ONE (07:42)
[2020-01-29] MEDS ORDERED: NITROGLYCERIN 1GM/1 INCH PACKET TD ONE (07:42)
[2020-01-29 07:53] LABS: ALBUMIN 3.4 g/dL (3.5-5.0); BILIRUBIN,TOTAL 0.6 mg/dL (0.2-1.0); CREATININE 1.5 mg/dL (0.5-1.5); POTASSIUM 5.5 mmol/L (3.5-5.1); TOTAL PROTEIN, SERUM 7.5 g/dL (6.0-8.3)
[2020-01-29] MEDS ORDERED: ONDANSETRON HCL 4 MG/2 ML VIAL ONE (07:54)
[2020-01-29 08:12] LABS: ABG HCO3 21.7 mmol/L (21.0-28.0); ABG OXYGEN SATURATION 98.9 % (95.0-99.0); ABG PCO2 46 mmHg (32-45)
[2020-01-29 08:45] LABS: B-TYPE NATRIURETIC PEPTIDE 1020 pg/mL (0-100)
[2020-01-29] MEDS ORDERED: ACETAMINOPHEN 325 MG TAB PO PRN (10:00)
[2020-01-29] MEDS: PREDNISONE 20 MG TABLET PO SCH (10:00)
[2020-01-29] MEDS ORDERED: CALCIUM GLUCONATE 1 GM/10 ML VIAL IV SCH (10:00)
[2020-01-29] MEDS: INSULIN HUMULIN R 100 UNIT/ML 3ML SQ SCH ×3 (10:00→20:37)
[2020-01-29] MEDS ORDERED: LACTULOSE 20 GM/30 ML UDCUP PO PRN (10:00)
[2020-01-29] MEDS: AZITHROMYCIN 250 MG TABLET PO SCH (10:00)
[2020-01-29] MEDS ORDERED: HEPARIN SODIUM 5000UNIT/ML 1ML VIAL ONE (10:35)
[2020-01-29] MEDS ORDERED: FAMOTIDINE 20MG TAB 20 MG TAB ONE (10:35)
[2020-01-29] MEDS ORDERED: PREDNISONE 20 MG TABLET ONE (10:35)
[2020-01-29] MEDS ORDERED: CARVEDILOL 3.125 MG TABLET PO ONE (10:36)
[2020-01-29] MEDS ORDERED: AZITHROMYCIN 250 MG TABLET PO ONE (10:36)
[2020-01-29] MEDS ORDERED: LOSARTAN 50 MG TABLET ONE (10:36)
[2020-01-29] MEDS ORDERED: CALCIUM GLUCONATE 1 GM in SODIUM CHLORIDE 0.9% 100 ML IV SCH (10:45)
[2020-01-29 11:14] LABS: AMPHET/METH SCREEN,URINE NEGATIVE (NEGATIVE); BARBITURATE SCREEN, URINE NEGATIVE (NEGATIVE); BENZODIAZEPINES SCREEN,URINE NEGATIVE (NEGATIVE); CANNABINOID SCREEN,URINE NEGATIVE (NEGATIVE); COCAINE SCREEN,URINE NEGATIVE (NEGATIVE); OPIATE SCREEN,URINE NEGATIVE (NEGATIVE); PHENCYCLIDINE SCREEN,URINE NEGATIVE (NEGATIVE)
[2020-01-29 11:16] LABS: ABG BASE EXCESS -2.3 mmol/L (-2.0-3.0); ABG HCO3 23.3 mmol/L (21.0-28.0); ABG OXYGEN SATURATION 99.9 % (95.0-99.0); ABG PCO2 43 mmHg (32-45)
[2020-01-29] MEDS ORDERED: IPRATROPIUM/ALBUTEROL SULFATE 3 ML SOLUTION IH SCH (12:00)
[2020-01-29 12:40] LABS: HEMOGLOBIN A1C 8.2 % (4.0-6.0)
[2020-01-29 12:41] LABS: SALICYLATE < 2.8 mg/dL (2.8-20.0)
[2020-01-29] MEDS ORDERED: INSULIN HUMULIN R 100 UNIT/ML 3ML ONE (12:48)
[2020-01-29] MEDS: HEPARIN SODIUM 5000UNIT/ML 1ML VIAL SQ SCH ×2 (14:00→20:25)
[2020-01-29 16:52] VITALS: BP 171/75
[2020-01-29] MEDS: ALBUTEROL INHALER 90MCG/INH IH SCH (18:00)
[2020-01-29 19:00] VITALS: BP 177/77
[2020-01-29] MEDS: FUROSEMIDE 10 MG/ML 4ML VIAL IVP SCH (20:20)
[2020-01-29] MEDS: FAMOTIDINE 20MG TAB 20 MG TAB PO SCH (20:22)
[2020-01-29] MEDS: CARVEDILOL 3.125 MG TABLET PO SCH (20:22)
[2020-01-29 23:00] VITALS: BP 156/69
[2020-01-30] MEDS: ALBUTEROL INHALER 90MCG/INH IH SCH ×4 (00:16→18:22)
[2020-01-30 03:00] VITALS: BP 161/73
[2020-01-30] MEDS ORDERED: OLME20TA10 PO (03:27)
[2020-01-30] MEDS ORDERED: INSU100I24 SQ (03:27)
[2020-01-30] MEDS ORDERED: GLIP-162 PO (03:27)
[2020-01-30] MEDS ORDERED: PRAV10TA39 PO (03:27)
[2020-01-30] MEDS ORDERED: TORS100T16 PO (03:27)
[2020-01-30] MEDS ORDERED: FURO20TA4 PO (03:27)
[2020-01-30] MEDS ORDERED: INSU100I3 SQ (03:27)
[2020-01-30] MEDS ORDERED: LEVO112T7 PO (03:27)
[2020-01-30 05:08] LABS: ABG BASE EXCESS -3.7 mmol/L (-2.0-3.0); ABG HCO3 21.7 mmol/L (21.0-28.0); ABG OXYGEN SATURATION 99.4 % (95.0-99.0); ABG PCO2 41 mmHg (32-45)
[2020-01-30 05:52] LABS: BASOPHILS % (AUTO) 0.2 % (0.0-5.0); EOSINOPHILS % (AUTO) 0.2 % (0.0-8.0); HEMATOCRIT 31.4 % (36-48); LYMPHOCYTES % (AUTO) 16.5 % (21.0-51.0); MEAN CORPUSCULAR HGB CONC 30.9 g/dL (32.0-36.0); MEAN CORPUSCULAR VOLUME 80.9 fL (79-99); MONOCYTES % (AUTO) 6.3 % (3.0-13.0); NEUTROPHILS % (AUTO) 76.5 % (40.0-77.0); PLATELET COUNT (AUTO) 236 K/uL (130-400); RED BLOOD CELL COUNT(AUTO) 3.88 MIL/uL (4.00-5.50); RED CELL DISTRIBUTION WIDTH 16.7 % (11.0-15.5); WHITE BLOOD COUNT (AUTO) 10.4 K/uL (4.8-10.8)
[2020-01-30] MEDS: LEVOTHYROXINE 112 MCG TABLET PO SCH (06:00)
[2020-01-30] MEDS: INSULIN HUMULIN R 100 UNIT/ML 3ML SQ SCH ×5 (06:02→21:00)
[2020-01-30 06:04] LABS: B-TYPE NATRIURETIC PEPTIDE 1630 pg/mL (0-100)
[2020-01-30 06:26] LABS: BILIRUBIN,TOTAL 0.4 mg/dL (0.2-1.0); CREATININE 1.5 mg/dL (0.5-1.5); POTASSIUM 4.7 mmol/L (3.5-5.1); TOTAL PROTEIN, SERUM 6.8 g/dL (6.0-8.3)
[2020-01-30] MEDS: FAMOTIDINE 20MG TAB 20 MG TAB PO SCH ×2 (08:13→21:53)
[2020-01-30] MEDS: LOSARTAN 50 MG TABLET PO SCH (08:13)
[2020-01-30] MEDS: CARVEDILOL 3.125 MG TABLET PO SCH ×2 (08:14→21:00)
[2020-01-30] MEDS: FUROSEMIDE 10 MG/ML 4ML VIAL IVP SCH ×2 (08:14→21:53)
[2020-01-30] MEDS: PREDNISONE 20 MG TABLET PO SCH (08:14)
[2020-01-30] MEDS: HEPARIN SODIUM 5000UNIT/ML 1ML VIAL SQ SCH ×3 (08:21→21:00)
[2020-01-30 09:54] VITALS: BP 157/75
[2020-01-30] MEDS: AZITHROMYCIN 250 MG TABLET PO SCH (11:51)
[2020-01-30 12:12] VITALS: BP 158/73
--- NOTE | 2020-01-30 15:46 | NUR ---
DC PLAN PATIENT LIVES ALONE. SEMI INDEPENDENT ABLE TO PERFORM ADL'S. PROVIDER 30 HRS WITH BELIEVE IN US. PATIENT HAS WALKER, HOSPITAL BED, CPAP, SHOWER CHAIR, GLUCOMETER. DAUGHTER TO HELP ON DISCHARGE. FEELS SAFE TO RETURN HOME. Addendum: 01/30/20 at 1549 by ELENI JACOBSON RN CM Amended: Links added.
[2020-01-30 16:02] VITALS: BP 163/72
--- NOTE | 2020-01-30 16:21 | NUR ---
RD NOTIFICATION Pt admitted with CHF Exacerbation. Tolerating 75gm CC diet order with Fair PO intake. No report of GI distress. Elevated BG and BNP levels. Altered renal labs. Obesity Class II. Recommend 60gm CC, Heart healthy diet modification Recommend 1000-1200mL Fluid restriction as medically feasible. RD to continue to monitor. Please notify as additional nutrition concerns arise. Thank you. Addendum: 01/30/20 at [address] RD Amended: Links added.
[2020-01-30 20:36] VITALS: BP 159/61
[2020-01-31] VITALS (7 sets, daily range): BP systolic 136–175; BP diastolic 50–71
[2020-01-31] MEDS: LEVOTHYROXINE 112 MCG TABLET PO SCH (06:44)
[2020-01-31] MEDS: INSULIN HUMULIN R 100 UNIT/ML 3ML SQ SCH ×5 (06:44→21:00)
[2020-01-31] MEDS: ALBUTEROL INHALER 90MCG/INH IH SCH ×3 (08:38→17:08)
[2020-01-31] MEDS: AZITHROMYCIN 250 MG TABLET PO SCH (08:39)
[2020-01-31] MEDS: FAMOTIDINE 20MG TAB 20 MG TAB PO SCH ×2 (08:39→21:28)
[2020-01-31] MEDS: LOSARTAN 50 MG TABLET PO SCH (08:39)
[2020-01-31] MEDS: FUROSEMIDE 10 MG/ML 4ML VIAL IVP SCH (08:39)
[2020-01-31] MEDS: PREDNISONE 20 MG TABLET PO SCH (08:39)
[2020-01-31] MEDS: CARVEDILOL 3.125 MG TABLET PO SCH ×2 (08:40→21:00)
[2020-01-31] MEDS: HEPARIN SODIUM 5000UNIT/ML 1ML VIAL SQ SCH ×3 (08:43→21:00)
[2020-01-31 09:18] LABS: CREATININE 1.8 mg/dL (0.5-1.5); POTASSIUM 4.9 mmol/L (3.5-5.1)
[2020-01-31] MEDS ORDERED: FUROSEMIDE 40 MG TABLET PO SCH (11:15)
--- NOTE | 2020-01-31 13:43 | NUR ---
2D ECHO by bedside
--- NOTE | 2020-01-31 15:10 | NUR ---
US of lower ext done.
[2020-02-01 03:54] VITALS: BP 129/60
[2020-02-01 06:06] LABS: BASOPHILS % (AUTO) 0.2 % (0.0-5.0); EOSINOPHILS % (AUTO) 0.6 % (0.0-8.0); HEMATOCRIT 32.1 % (36-48); LYMPHOCYTES % (AUTO) 20.6 % (21.0-51.0); MEAN CORPUSCULAR HGB CONC 31.2 g/dL (32.0-36.0); MEAN CORPUSCULAR VOLUME 80.3 fL (79-99); MONOCYTES % (AUTO) 7.8 % (3.0-13.0); NEUTROPHILS % (AUTO) 70.4 % (40.0-77.0); PLATELET COUNT (AUTO) 266 K/uL (130-400); RED CELL DISTRIBUTION WIDTH 16.1 % (11.0-15.5); WHITE BLOOD COUNT (AUTO) 12.6 K/uL (4.8-10.8)
[2020-02-01] MEDS: LEVOTHYROXINE 112 MCG TABLET PO SCH (06:16)
[2020-02-01 06:22] LABS: B-TYPE NATRIURETIC PEPTIDE 1070 pg/mL (0-100)
[2020-02-01 06:35] LABS: BILIRUBIN,TOTAL 0.3 mg/dL (0.2-1.0); CREATININE 1.6 mg/dL (0.5-1.5); POTASSIUM 4.4 mmol/L (3.5-5.1); TOTAL PROTEIN, SERUM 6.8 g/dL (6.0-8.3)
[2020-02-01] MEDS: INSULIN HUMULIN R 100 UNIT/ML 3ML SQ SCH ×4 (06:54→16:11)
[2020-02-01 08:00] VITALS: BP 172/69
[2020-02-01] MEDS ORDERED: FUROSEMIDE 40 MG TABLET PO SCH (09:00)
[2020-02-01] MEDS: HEPARIN SODIUM 5000UNIT/ML 1ML VIAL SQ SCH ×2 (09:00→14:22)
[2020-02-01] MEDS: PREDNISONE 20 MG TABLET PO SCH (09:24)
[2020-02-01] MEDS: CARVEDILOL 3.125 MG TABLET PO SCH (09:24)
[2020-02-01] MEDS: FAMOTIDINE 20MG TAB 20 MG TAB PO SCH (09:24)
[2020-02-01] MEDS: LOSARTAN 50 MG TABLET PO SCH (09:25)
[2020-02-01 11:00] VITALS: BP 148/70
[2020-02-01] MEDS: ALBUTEROL INHALER 90MCG/INH IH SCH ×2 (12:00)
--- NOTE | 2020-02-01 15:07 | NUR ---
SPOKE WITH ANNA LANTIGUA OK FOR DC HOME. D/C MEDICATION INSTRUCTION: <Please refer to medication reconciliation sheet for full details on, medications, doses, and frequency of new medications. Discontinued and, continued home medications.> DC FOLLOW UP: <Follow-up with PCP next week.>
--- NOTE | 2020-02-01 17:06 | NUR ---
PT GOING HOME, DC COE, DC IV LEFT AC, PT TOLERATED WELL, PLACEDICE AND COMPRESS DRESSING. PLACED WHEELCHAIR , ON ROOM AIR. DIRECTOR OF MARKET INTELLIGENCE BY DAUGHTER AT THE ER. SAFETY MAINTAINED.
== END 2020-02-01 17:05 | disposition home or self-care (01) | DRG 291 ==
LOC: EDH 06:53 → EDHIP 09:58 → 2AH 15:42 → 4BH 01-30 18:40
PROVIDERS: ADMIT Internal Medicine; ATTEND Internal Medicine
PROC: 5A09357 Assistance with Respiratory Ventilation, Less than 24 Consecutive Hours, Continuous Positive Airway Pressure (ICD-10-PCS; principal; 2020-01-29)
PROC: 5A09357 Assistance with Respiratory Ventilation, Less than 24 Consecutive Hours, Continuous Positive Airway Pressure (ICD-10-PCS; 2020-01-30)
PROC: 5A09357 Assistance with Respiratory Ventilation, Less than 24 Consecutive Hours, Continuous Positive Airway Pressure (ICD-10-PCS; 2020-01-31)
DX: I13.0 Hypertensive heart and chronic kidney disease with heart failure and stage 1 through stage 4 chronic kidney disease, or unspecified chronic kidney disease (principal); J96.01 Acute respiratory failure with hypoxia; J96.02 Acute respiratory failure with hypercapnia; I50.23 Acute on chronic systolic (congestive) heart failure; J44.1 Chronic obstructive pulmonary disease with (acute) exacerbation; E87.2 Acidosis; N17.9 Acute kidney failure, unspecified; D64.9 Anemia, unspecified; I16.0 Hypertensive urgency; Z20.828 Contact with and (suspected) exposure to other viral communicable diseases; E03.9 Hypothyroidism, unspecified; E11.65 Type 2 diabetes mellitus with hyperglycemia; E66.9 Obesity, unspecified; K21.9 Gastro-esophageal reflux disease without esophagitis; E78.5 Hyperlipidemia, unspecified; G47.33 Obstructive sleep apnea (adult) (pediatric); E87.5 Hyperkalemia; E11.22 Type 2 diabetes mellitus with diabetic chronic kidney disease; N18.9 Chronic kidney disease, unspecified; Z83.3 Family history of diabetes mellitus; Z03.818 Encounter for observation for suspected exposure to other biological agents ruled out; Z82.5 Family history of asthma and other chronic lower respiratory diseases; Z82.49 Family history of ischemic heart disease and other diseases of the circulatory system; Z95.0 Presence of cardiac pacemaker; Z82.3 Family history of stroke; Z82.0 Family history of epilepsy and other diseases of the nervous system; Z79.899 Other long term (current) drug therapy; Z79.4 Long term (current) use of insulin; Z68.38 Body mass index [BMI] 38.0-38.9, adult; Z90.49 Acquired absence of other specified parts of digestive tract; Z98.891 History of uterine scar from previous surgery; Z79.84 Long term (current) use of oral hypoglycemic drugs
CPT/HCPCS: 36415; 36600; 71045; 80048; 80053; 80305; 82010; 82550; 82803; 82948; 83036; 83605; 83880; 84484; 85025; 87426; 87804; 93005; 93306; 93356; 93971; 94640; 94660; 97039; G0378; G0481; J0610; J1644; J1815; J1940; J2405; U0003

== ENCOUNTER 2020-03-11 06:11 | Day surgery (SDC) | payer MEDICARE ==
[2020-03-11] VITALS (7 sets, daily range): BP systolic 124–179; BP diastolic 41–62
[~2020-03-11] VITALS: Ht 152.4 cm; Wt 88.5 kg
[~2020-03-11 06:11] MED LIST changes: +INSU100I24 SQ; +INSU100I3 SQ; +OLME20TA10 PO
[2020-03-11] MEDS ORDERED: SODIUM CHLORIDE 0.9% 1000ML 1,000 ML IV ONE (06:55)
[2020-03-11] MEDS ORDERED: OLME20TA10 PO (07:56)
[2020-03-11] MEDS ORDERED: LINA145C PO (07:56)
[2020-03-11] MEDS ORDERED: TETR15DR98 OU (07:56)
[2020-03-11] MEDS ORDERED: ACET-2247 PO (07:56)
[2020-03-11] MEDS ORDERED: FURO20TA4 PO (07:56)
[2020-03-11] MEDS ORDERED: INSU100V12 SQ (07:56)
[2020-03-11] MEDS ORDERED: [UNRECOGNIZED DRUG - REMARK] OU (07:56)
[2020-03-11] MEDS ORDERED: [UNRECOGNIZED DRUG - REMARK] IH (07:56)
[2020-03-11] MEDS ORDERED: PROPOFOL 10 MG/ML 20ML VIAL IV ONE ×2 (08:55→09:04)
--- NOTE | 2020-03-11 10:15 | NUR ---
DC PT DC HOME VIA WC NO DISTRESS NOTED. PT ACCOMPANIED BY DAUGHTER , PT DENIED ANY PAIN OR DISCOMFORTS
== END 2020-03-11 10:15 | disposition home or self-care (01) ==
LOC: ENDO 06:11 → DAH 06:11 → ENDO 10:15
PROVIDERS: ATTEND Internal Medicine
DX: K59.00 Constipation, unspecified (principal); K63.5 Polyp of colon; I25.10 Atherosclerotic heart disease of native coronary artery without angina pectoris; I11.0 Hypertensive heart disease with heart failure; I50.9 Heart failure, unspecified; E78.5 Hyperlipidemia, unspecified; E03.9 Hypothyroidism, unspecified; M19.90 Unspecified osteoarthritis, unspecified site; E11.9 Type 2 diabetes mellitus without complications; J45.909 Unspecified asthma, uncomplicated; E66.01 Morbid (severe) obesity due to excess calories; G47.30 Sleep apnea, unspecified; Z79.890 Hormone replacement therapy; Z95.0 Presence of cardiac pacemaker; Z98.890 Other specified postprocedural states; Z98.891 History of uterine scar from previous surgery; Z90.49 Acquired absence of other specified parts of digestive tract; Z86.010 Personal history of colon polyps; Z79.01 Long term (current) use of anticoagulants; Z79.84 Long term (current) use of oral hypoglycemic drugs; Z68.38 Body mass index [BMI] 38.0-38.9, adult
CPT/HCPCS: 45385; 82948 ×2; 88305; 93005; A4215; A4221; A4222; A4223; A4606; A4620; A4649; A4657 ×3; A4663; J2704 ×2; J7030

== ENCOUNTER 2020-04-09 10:51 | Inpatient (IN) | payer MEDICARE ==
[~2020-04-09] VITALS: Ht 152.4 cm; Wt 85.4 kg
[~2020-04-09 10:51] MED LIST changes: +ACET-2247 PO; -ALLO100T PO; -BIMA12.5OS OU; -CHOL500050 PO; -DOXY100C2 PO; -EZET10TA48 PO; -FLUT1DIS3 IH; +FURO20TA4 PO; -GLIP-162 PO; -ICOS1CAP PO; -INSU100I21 SQ; -INSU100I24 SQ; -INSU100I3 SQ; +INSU100V12 SQ; +LINA145C PO; -LINA290C PO; -MAG OXIDE PO; -NITR0.4T50 SL; -PANT40TA54 PO; -PRED20TA3 PO; +TETR15DR98 OU; -TORS100T16 PO; -[UNRECOGNIZED DRUG - OTHER]; +[UNRECOGNIZED DRUG - REMARK] IH; +[UNRECOGNIZED DRUG - REMARK] OU; -inhaler IH
[2020-04-09 11:17] LABS: BASOPHILS % (AUTO) 0.3 % (0.0-5.0); HEMATOCRIT 32.9 % (36-48); LYMPHOCYTES % (AUTO) 17.7 % (21.0-51.0); MEAN CORPUSCULAR HEMOGLOBIN 24.9 pg (27.0-33.0); MEAN CORPUSCULAR VOLUME 80.4 fL (79-99); MONOCYTES % (AUTO) 6.6 % (3.0-13.0); NEUTROPHILS % (AUTO) 74.1 % (40.0-77.0); PLATELET COUNT (AUTO) 238 K/uL (130-400); RED BLOOD CELL COUNT(AUTO) 4.09 MIL/uL (4.00-5.50); RED CELL DISTRIBUTION WIDTH 14.7 % (11.0-15.5); WHITE BLOOD COUNT (AUTO) 14.7 K/uL (4.8-10.8)
[2020-04-09 11:22] LABS: CREATININE 1.3 mg/dL (0.5-1.5); POTASSIUM 5.4 mmol/L (3.5-5.1)
[2020-04-09 11:33] LABS: ALBUMIN 3.5 g/dL (3.5-5.0); BILIRUBIN,TOTAL 0.8 mg/dL (0.2-1.0); TOTAL PROTEIN, SERUM 7.7 g/dL (6.0-8.3); TROPONIN I 0.06 ng/mL (0.00-0.06)
[2020-04-09 11:35] LABS: BILIRUBIN,URINE Negative (NEGATIVE); COLOR,URINE Yellow (YELLOW); GLUCOSE, URINE (UA) Negative (NEGATIVE); KETONES,URINE Negative (NEGATIVE); LEUKOCYTE ESTERASE ,URINE Trace (NEGATIVE); NITRATE,URINE Negative (NEGATIVE); OCCULT BLOOD,URINE Trace (NEGATIVE); PH,URINE 7.5 (5.0-8.0); PROTEIN,URINE 300 mg/dL (NEGATIVE); UROBILINOGEN,URINE 0.2 mg/dL (0.2-1.0)
[2020-04-09] MEDS ORDERED: ONDANSETRON HCL 4 MG/2 ML VIAL ONE (11:35)
[2020-04-09] MEDS ORDERED: NITROGLYCERIN 1GM/1 INCH PACKET TD ONE (11:36)
[2020-04-09] MEDS ORDERED: FUROSEMIDE 10 MG/ML 4ML VIAL ONE ×2 (11:36→20:56)
[2020-04-09 11:42] LABS: APPEARANCE,URINE CLEAR (CLEAR)
[2020-04-09 11:43] LABS: INR 0.92 (0.85-1.15); PARTIAL THROMBOPLASTIN TIME 27.6 SEC (26.3-35.5)
[2020-04-09 12:06] LABS: ABG BASE EXCESS -3.1 mmol/L (-2.0-3.0); ABG HCO3 25.1 mmol/L (21.0-28.0); ABG OXYGEN SATURATION 99.1 % (95.0-99.0); ABG PCO2 61 mmHg (32-45)
[2020-04-09 12:13] LABS: BACTERIA,URINE None Seen /HPF (None Seen); RBC,URINE 0-1 /HPF (0-1); SQUAMOUS EPITHELIAL CELL,UR 0-2 /HPF (0-2); WBC,URINE 0-1 /HPF (0-1)
[2020-04-09] MEDS ORDERED: ACETAMINOPHEN 325 MG TAB PO PRN ×2 (15:45)
[2020-04-09] MEDS ORDERED: CEFTRIAXONE SODIUM 1 GM IVP SCH (15:45)
[2020-04-09] MEDS ORDERED: NITROGLYCERIN 0.4 MG SL TAB SL PRN (15:45)
[2020-04-09] MEDS ORDERED: HYDRALAZINE HCL 20 MG/ML VIAL IV PRN (15:45)
[2020-04-09] MEDS ORDERED: MORPHINE SULFATE 2 MG/ML 1ML SYG IV PRN (15:45)
[2020-04-09] MEDS ORDERED: GUAIFENESIN-DM 200/20 MG 10 ML PO PRN (15:45)
[2020-04-09] MEDS ORDERED: ONDANSETRON HCL 4 MG/2 ML VIAL IV PRN (15:45)
[2020-04-09] MEDS ORDERED: SODIUM POLYSTYRENE SULFONATE 15 GM/60 ML ML PO SCH (16:00)
[2020-04-09] MEDS ORDERED: ALBUTEROL INHALER 90MCG/INH IH ONE (16:16)
[2020-04-09] MEDS ORDERED: CEFTRIAXONE SODIUM 1 GM ONE (16:16)
[2020-04-09] MEDS ORDERED: SODIUM POLYSTYRENE SULFONATE 15 GM/60 ML ML ONE ×2 (16:16→18:51)
[2020-04-09] MEDS ORDERED: ALBUTEROL SULFATE 0.083% 2.5 MG/3 ML INH IH SCH (18:00)
[2020-04-09] MEDS ORDERED: DEXTROSE 50%-WATER 50 ML DISP.SYRIN IV SCH (18:00)
[2020-04-09] MEDS ORDERED: INSULIN HUMULIN R 100 UNIT/ML 3ML SQ SCH (18:00)
[2020-04-09] MEDS ORDERED: CALCIUM CHLORIDE 100 MG/ML 10 ML SYG IVP SCH (18:00)
[2020-04-09] MEDS: ALBUTEROL SULFATE 0.083% 2.5 MG/3 ML INH IH SCH (18:00)
[2020-04-09] MEDS ORDERED: INSULIN HUMULIN R 100 UNIT/ML 3ML ONE (18:06)
[2020-04-09 18:50] LABS: ABG BASE EXCESS 0.6 mmol/L (-2.0-3.0); ABG OXYGEN SATURATION 98.8 % (95.0-99.0); ABG PCO2 39 mmHg (32-45)
[2020-04-09] MEDS ORDERED: FAMOTIDINE/PF 20 MG/2 ML VIAL IV ONE (20:57)
[2020-04-09] MEDS ORDERED: FUROSEMIDE 10 MG/ML 4ML VIAL IV SCH (21:00)
[2020-04-09 22:11] LABS: CREATININE 1.5 mg/dL (0.5-1.5); POTASSIUM 5.1 mmol/L (3.5-5.1)
[2020-04-10] MEDS ORDERED: CEFTRIAXONE SODIUM 1 GM ONE ×2 (04:48→15:17)
[2020-04-10] MEDS: ALBUTEROL SULFATE 0.083% 2.5 MG/3 ML INH IH SCH ×4 (06:00→18:00)
[2020-04-10 06:47] LABS: BASOPHILS % (AUTO) 0.5 % (0.0-5.0); EOSINOPHILS % (AUTO) 2.2 % (0.0-8.0); HEMATOCRIT 29.3 % (36-48); LYMPHOCYTES % (AUTO) 21.3 % (21.0-51.0); MEAN CORPUSCULAR HEMOGLOBIN 25.3 pg (27.0-33.0); MEAN CORPUSCULAR HGB CONC 31.4 g/dL (32.0-36.0); MEAN CORPUSCULAR VOLUME 80.7 fL (79-99); MONOCYTES % (AUTO) 9.2 % (3.0-13.0); NEUTROPHILS % (AUTO) 66.6 % (40.0-77.0); PLATELET COUNT (AUTO) 205 K/uL (130-400); RED BLOOD CELL COUNT(AUTO) 3.63 MIL/uL (4.00-5.50); RED CELL DISTRIBUTION WIDTH 14.9 % (11.0-15.5); WHITE BLOOD COUNT (AUTO) 9.1 K/uL (4.8-10.8)
[2020-04-10 07:08] LABS: ALBUMIN 2.8 g/dL (3.5-5.0); BILIRUBIN,TOTAL 0.7 mg/dL (0.2-1.0); CREATININE 1.5 mg/dL (0.5-1.5); POTASSIUM 4.5 mmol/L (3.5-5.1); TOTAL PROTEIN, SERUM 6.5 g/dL (6.0-8.3)
[2020-04-10] MEDS ORDERED: ENOXAPARIN SODIUM 30 MG/0.3 ML SQ SCH (09:00)
[2020-04-10 09:25] LABS: TROPONIN I 0.08 ng/mL (0.00-0.06)
--- NOTE | 2020-04-10 12:16 | NUR ---
CM note call made to daughter khadra smith, states pt resides at home alone. uses rollator walker , and has a Bipap with oxygen at hs only. no other dme. has provider 3-4hrs daily, provided physical address: [address] , [place], [place]. states she can provide transport, dc plan is back home at dc. Addendum: 04/10/20 at 1224 by ANGELICA REEDER CM Amended: Links added.
[2020-04-10] MEDS ORDERED: ENOXAPARIN SODIUM 80 MG/0.8 ML SQ ONE (12:21)
[2020-04-10] MEDS ORDERED: FUROSEMIDE 10 MG/ML 2ML VIAL ONE (12:22)
[2020-04-10] MEDS ORDERED: FAMOTIDINE/PF 20 MG/2 ML VIAL IV ONE (12:22)
[2020-04-10] MEDS ORDERED: SODIUM CHLORIDE 0.9% 100 ML IV ONE (15:17)
[2020-04-10] MEDS: INSULIN HUMULIN R 100 UNIT/ML 3ML SQ SCH ×7 (16:30→20:41)
[2020-04-10] MEDS: FAMOTIDINE/PF 20 MG/2 ML VIAL IV SCH ×3 (16:32→20:07)
[2020-04-10] MEDS: INSULIN GLARGINE 100 UNITS/ML 10 ML VIAL SQ SCH (16:33)
[2020-04-10 18:01] VITALS: BP 185/64
[2020-04-10 19:00] VITALS: BP 177/82
[2020-04-10] MEDS: CEFTRIAXONE SODIUM 1 GM IVP SCH (20:06)
[2020-04-10] MEDS: FUROSEMIDE 10 MG/ML 2ML VIAL IVP SCH (20:07)
[2020-04-10 20:10] VITALS: BP 158/59
[2020-04-10] MEDS ORDERED: CLONIDINE HCL 0.1 MG TABLET PO SCH (21:15)
[2020-04-10] MEDS ORDERED: CLONIDINE HCL 0.1 MG TABLET ONE (21:29)
[2020-04-10 23:00] VITALS: BP 168/71
[2020-04-11] MEDS: ALBUTEROL SULFATE 0.083% 2.5 MG/3 ML INH IH SCH ×3 (00:33→18:42)
[2020-04-11 03:00] VITALS: BP 139/51
[2020-04-11 04:51] LABS: BASOPHILS % (AUTO) 0.5 % (0.0-5.0); EOSINOPHILS % (AUTO) 1.7 % (0.0-8.0); HEMATOCRIT 28.9 % (36-48); LYMPHOCYTES % (AUTO) 20.7 % (21.0-51.0); MEAN CORPUSCULAR HEMOGLOBIN 24.5 pg (27.0-33.0); MEAN CORPUSCULAR HGB CONC 30.4 g/dL (32.0-36.0); MEAN CORPUSCULAR VOLUME 80.5 fL (79-99); MONOCYTES % (AUTO) 8.9 % (3.0-13.0); NEUTROPHILS % (AUTO) 67.9 % (40.0-77.0); PLATELET COUNT (AUTO) 218 K/uL (130-400); RED BLOOD CELL COUNT(AUTO) 3.59 MIL/uL (4.00-5.50); RED CELL DISTRIBUTION WIDTH 14.5 % (11.0-15.5); WHITE BLOOD COUNT (AUTO) 10.6 K/uL (4.8-10.8)
[2020-04-11 05:08] LABS: ALBUMIN 2.6 g/dL (3.5-5.0); BILIRUBIN,TOTAL 0.5 mg/dL (0.2-1.0); CREATININE 1.6 mg/dL (0.5-1.5); POTASSIUM 3.8 mmol/L (3.5-5.1); TOTAL PROTEIN, SERUM 6.5 g/dL (6.0-8.3)
[2020-04-11] MEDS: INSULIN HUMULIN R 100 UNIT/ML 3ML SQ SCH ×3 (06:07→20:54)
[2020-04-11 08:00] VITALS: BP 134/45
[2020-04-11] MEDS: CEFTRIAXONE SODIUM 1 GM IVP SCH ×2 (08:14→20:52)
[2020-04-11] MEDS: ENOXAPARIN SODIUM 80 MG/0.8 ML SQ SCH (08:15)
--- NOTE | 2020-04-11 08:15 | NUR ---
AM ASSESSMENT PT SITTING IN CHAIR, WATCHING TV. A/O X 3; FORGETFUL @ TIMES. SOB ON EXERTION. NO DISTRESS NOTED. O2 NC @ 3L. CONT PULSE OX @ 100%. MORBIDLY OBESE. DENIES CHEST PAIN OR DISCOMFORT. TELE: V PACED. DENIES N/V AND/OR DIARRHEA. 16 FR FC PATENT & DRAINING. OOB TO CHAIR. UP W/ASSISTANCE. INSTRUCTED TO CALL FOR ASSISTANCE. CALL AFSHAN W/IN REACH.
[2020-04-11] MEDS: FAMOTIDINE/PF 20 MG/2 ML VIAL IV SCH (08:17)
[2020-04-11] MEDS: FUROSEMIDE 10 MG/ML 2ML VIAL IVP SCH ×2 (08:17→20:52)
[2020-04-11] MEDS: INSULIN GLARGINE 100 UNITS/ML 10 ML VIAL SQ SCH (08:19)
--- NOTE | 2020-04-11 09:02 | NUR ---
MD NOTIFICATION DR FREY NOTIFIED PT 'S COVID PCR NEG. ORDER TO TRANSFER PT TO [facility] RECEIVED & ENTERED @ THIS TIME.
--- NOTE | 2020-04-11 09:50 | NUR ---
TRANSFER TELEPHONE REPORT GIVEN TO Atul ROTHMAN RN. PT TO BE TRANSFERRED TO RM [id number].
[2020-04-11 12:19] VITALS: BP 143/31
[2020-04-11] MEDS ORDERED: VITAD50000 PO (13:25)
[2020-04-11] MEDS ORDERED: AEC81 PO (13:26)
[2020-04-11 20:48] VITALS: BP 141/42
--- NOTE | 2020-04-11 20:55 | NUR ---
MEDS SHIFT ASSESSMENT DONE, PLEASE REFER TO CHART. DUE MEDS ADMINISTERED, TOLERATED WELL.KEPT COMFORTABLE IN BED WITH HOB ELEVATED. CALL LIGHT WITHIN REACH. WILL MONITOR PT. Addendum: 04/12/20 at 0023 by CYNTHIA ESCALANTE RN RN Amended: Links added.
[2020-04-11 23:58] VITALS: BP 157/61
--- NOTE | 2020-04-12 00:50 | NUR ---
ANXIETY PT CLAIMS OF HAVING SOB AND ANXIETY. O2 SATS=%. RT IN TO GIVE PT A BREATHING TREATMENT. PAGED AJ, CULLET TRUCKER BIOLOGIST FOR HOSPITALIST, VIA ANSWERING SERVICE. CULLET TRUCKER CALLED BACK AND REFERRED PT'S COMPLAINTS AND CONDITION. NEW MED ORDER GIVEN, PLEASE REFER TO CPOE. WILL MEDICATE PT.
[2020-04-12] MEDS: ALBUTEROL SULFATE 0.083% 2.5 MG/3 ML INH IH SCH ×4 (00:55→19:00)
[2020-04-12] MEDS ORDERED: ALPRAZOLAM 0.25 MG TABLET PO ONE (01:00)
[2020-04-12] MEDS ORDERED: ALPRAZOLAM 0.25 MG TABLET ONE (01:07)
--- NOTE | 2020-04-12 02:00 | NUR ---
ROUNDS PT RESTING WELL, FAIRLY ASLEEP. NO DISTRESS NOTED. KEPT UNDISTURBED FOR NOW. WILL CONTINUE TO MONITOR. CALL LIGHT WITHIN REACH.
[2020-04-12 04:00] VITALS: BP 166/58
[2020-04-12 04:52] LABS: BASOPHILS % (AUTO) 0.4 % (0.0-5.0); EOSINOPHILS % (AUTO) 3.8 % (0.0-8.0); HEMATOCRIT 29.5 % (36-48); LYMPHOCYTES % (AUTO) 21.5 % (21.0-51.0); MEAN CORPUSCULAR HEMOGLOBIN 24.9 pg (27.0-33.0); MEAN CORPUSCULAR HGB CONC 30.2 g/dL (32.0-36.0); MEAN CORPUSCULAR VOLUME 82.4 fL (79-99); MONOCYTES % (AUTO) 7.4 % (3.0-13.0); NEUTROPHILS % (AUTO) 66.6 % (40.0-77.0); PLATELET COUNT (AUTO) 234 K/uL (130-400); RED BLOOD CELL COUNT(AUTO) 3.58 MIL/uL (4.00-5.50); RED CELL DISTRIBUTION WIDTH 14.3 % (11.0-15.5); WHITE BLOOD COUNT (AUTO) 9.3 K/uL (4.8-10.8)
[2020-04-12 05:31] LABS: ALBUMIN 2.8 g/dL (3.5-5.0); BILIRUBIN,TOTAL 0.3 mg/dL (0.2-1.0); CREATININE 1.8 mg/dL (0.5-1.5); MAGNESIUM 2.4 mg/dL (1.80-2.40); PHOSPHORUS 4.5 mg/dL (2.5-4.9)
[2020-04-12 06:00] VITALS: BP 154/53
[2020-04-12] MEDS: INSULIN HUMULIN R 100 UNIT/ML 3ML SQ SCH ×7 (06:22→20:38)
[2020-04-12 06:47] LABS: HEMOGLOBIN A1C 8.5 % (4.0-6.0)
[2020-04-12 08:00] VITALS: BP 159/41
[2020-04-12] MEDS: INSULIN GLARGINE 100 UNITS/ML 10 ML VIAL SQ SCH (09:05)
[2020-04-12] MEDS: CEFTRIAXONE SODIUM 1 GM IVP SCH ×2 (09:06→19:50)
[2020-04-12] MEDS: FUROSEMIDE 10 MG/ML 2ML VIAL IVP SCH ×2 (09:07→19:51)
[2020-04-12] MEDS: SPIRONOLACTONE 25 MG TAB PO SCH (09:07)
[2020-04-12] MEDS: FAMOTIDINE/PF 20 MG/2 ML VIAL IV SCH (09:08)
[2020-04-12] MEDS: ENOXAPARIN SODIUM 80 MG/0.8 ML SQ SCH (09:09)
[2020-04-12 12:00] VITALS: BP 171/65
[2020-04-12 16:00] VITALS: BP 165/61
--- NOTE | 2020-04-12 16:19 | NUR ---
RD NOTIFICATION Pt admitted due to CHF exacerbation, acute hypoxemic respiratory failure. Pt has hx of COVID positive diagnosis Current admission, PCR negative for COVID Pt is currently on a 75 GM CC diet with a 2 L fluid restriction. As per pt she currently has poor appetite. As per EMR pt ate 100% of breakfast 04/11/20 Prior to admission provider stated pt had good appetite. RD RECOMMENDATION: Continue current diet order Glucerna QD Monitor fluid intake Monitor PO intake LABS: A1C8.5, BUN 48, CREAT 1.8, GFR 29, BG 121, TOT CA8.4, BNP 413, ALB 2.8, TOT PRO 7.0, Addendum: 04/12/20 at [address] Amended: Links added.
[2020-04-12] MEDS ORDERED: HYDRALAZINE HCL 25 MG TABLET ONE (19:50)
[2020-04-12] MEDS ORDERED: HYDRALAZINE HCL 25 MG TABLET PO PRN (20:00)
[2020-04-12 21:34] VITALS: BP 163/34
[2020-04-13] MEDS: ALBUTEROL SULFATE 0.083% 2.5 MG/3 ML INH IH SCH ×3 (00:02→11:15)
[2020-04-13 00:05] VITALS: BP 113/43
[2020-04-13 04:22] LABS: BASOPHILS % (AUTO) 0.5 % (0.0-5.0); EOSINOPHILS % (AUTO) 6.3 % (0.0-8.0); LYMPHOCYTES % (AUTO) 23.4 % (21.0-51.0); MEAN CORPUSCULAR HEMOGLOBIN 24.9 pg (27.0-33.0); MEAN CORPUSCULAR HGB CONC 30.7 g/dL (32.0-36.0); MEAN CORPUSCULAR VOLUME 80.9 fL (79-99); MONOCYTES % (AUTO) 8.6 % (3.0-13.0); NEUTROPHILS % (AUTO) 60.7 % (40.0-77.0); PLATELET COUNT (AUTO) 240 K/uL (130-400); RED BLOOD CELL COUNT(AUTO) 3.46 MIL/uL (4.00-5.50); RED CELL DISTRIBUTION WIDTH 14.3 % (11.0-15.5); WHITE BLOOD COUNT (AUTO) 7.8 K/uL (4.8-10.8)
[2020-04-13 04:38] LABS: ALBUMIN 2.4 g/dL (3.5-5.0); BILIRUBIN,TOTAL 0.2 mg/dL (0.2-1.0); CREATININE 1.6 mg/dL (0.5-1.5); MAGNESIUM 1.6 mg/dL (1.80-2.40); PHOSPHORUS 4.4 mg/dL (2.5-4.9); POTASSIUM 4.1 mmol/L (3.5-5.1); TOTAL PROTEIN, SERUM 6.5 g/dL (6.0-8.3)
[2020-04-13 04:42] LABS: B-TYPE NATRIURETIC PEPTIDE 479 pg/mL (0-100)
[2020-04-13] MEDS ORDERED: MAGNESIUM 2GM PREMIX 50ML 50 ML IV PRN (05:00)
[2020-04-13] MEDS ORDERED: MAGNESIUM 2GM PREMIX 50ML 50 ML IV ONE (05:06)
[2020-04-13] MEDS: INSULIN HUMULIN R 100 UNIT/ML 3ML SQ SCH ×6 (05:33→18:02)
[2020-04-13 08:00] VITALS: BP 153/44
[2020-04-13] MEDS: SPIRONOLACTONE 25 MG TAB PO SCH (09:01)
[2020-04-13] MEDS: CEFTRIAXONE SODIUM 1 GM IVP SCH (09:02)
[2020-04-13] MEDS: ENOXAPARIN SODIUM 80 MG/0.8 ML SQ SCH (09:02)
[2020-04-13] MEDS: FAMOTIDINE/PF 20 MG/2 ML VIAL IV SCH (09:03)
[2020-04-13] MEDS: FUROSEMIDE 10 MG/ML 2ML VIAL IVP SCH (09:04)
[2020-04-13] MEDS: INSULIN GLARGINE 100 UNITS/ML 10 ML VIAL SQ SCH (09:13)
[2020-04-13 13:20] VITALS: BP 105/66
[2020-04-13 15:53] VITALS: BP 129/54
[2020-04-13] MEDS ORDERED: CARV6.2579 PO (17:16)
[2020-04-13] MEDS ORDERED: TORS100T16 PO ×2 (17:16)
--- NOTE | 2020-04-14 17:45 | NUR ---
FOLLOW UP CALL T/C PLACED BY COSME, WHO SPOKE WITH DAUGHTER SHEFALI, WHO STATED SHE PICKED UP THE PRESCRIPTIONS OF CARVEDILOL AND TORSEMIDE.DAUGHTER ALSO SAID HAS STARTED TAKING MEDICATIONS.
--- NOTE | 2020-04-15 10:32 | NUR ---
Transitional Care - Post Discharge Note Spoke with patient, daughter at number listed. As per daughter, the patient is doing well. She states she has a follow up with her PCP tomorrow, is coordinating transportation for her appointments next week with Dr Maharaj and Dr Duffy, and is taking her discharge medications as ordered. When asked, the daughter stated the patient was not complaining of CP, SOB, VERTIGO, N/V/D, edema or fevers. Addendum: 04/15/20 at 1035 by CHATA AMATO Amended: Links added.
== END 2020-04-13 19:00 | disposition home or self-care (01) | DRG 291 ==
LOC: EDH 10:51 → EDHIP 15:36 → 2AH 04-10 17:31 → 3DH 04-11 10:16
PROVIDERS: ADMIT Hospitalist; ATTEND Hospitalist
DX: I13.0 Hypertensive heart and chronic kidney disease with heart failure and stage 1 through stage 4 chronic kidney disease, or unspecified chronic kidney disease (principal); I50.43 Acute on chronic combined systolic (congestive) and diastolic (congestive) heart failure; J96.01 Acute respiratory failure with hypoxia; J96.02 Acute respiratory failure with hypercapnia; N17.9 Acute kidney failure, unspecified; E87.5 Hyperkalemia; D72.829 Elevated white blood cell count, unspecified; D64.9 Anemia, unspecified; G47.33 Obstructive sleep apnea (adult) (pediatric); E66.01 Morbid (severe) obesity due to excess calories; I25.10 Atherosclerotic heart disease of native coronary artery without angina pectoris; E11.22 Type 2 diabetes mellitus with diabetic chronic kidney disease; J45.909 Unspecified asthma, uncomplicated; E78.5 Hyperlipidemia, unspecified; N18.9 Chronic kidney disease, unspecified; Z20.828 Contact with and (suspected) exposure to other viral communicable diseases; Z82.0 Family history of epilepsy and other diseases of the nervous system; Z82.5 Family history of asthma and other chronic lower respiratory diseases; Z82.49 Family history of ischemic heart disease and other diseases of the circulatory system; Z83.3 Family history of diabetes mellitus; Z82.3 Family history of stroke; Z88.8 Allergy status to other drugs, medicaments and biological substances; Z91.041 Radiographic dye allergy status; Z95.0 Presence of cardiac pacemaker; Z79.899 Other long term (current) drug therapy; Z68.36 Body mass index [BMI] 36.0-36.9, adult; Z86.19 Personal history of other infectious and parasitic diseases
CPT/HCPCS: 36415; 36600; 71045; 78582; 80048; 80053; 81001; 82435; 82550; 82728; 82803; 82947; 82948; 83036; 83605; 83615; 83735; 83874; 83880; 84100; 84132; 84145; 84295; 84484; 84702; 85018; 85025; 85378; 85610; 85651; 85730; 86900; 86901; 87040; 87088; 87426; 87804; 93005; 93970; 94640; 94660; 97039; A9540; A9558; G0378; J0696; J1650; J1815; J1940; J2405; J3475; J3490; U0003

== ENCOUNTER → 2020-04-26 | Outpatient (CLI) | payer MEDICARE ==
[~2020-04-26] MED LIST changes: +AEC81 PO; +CARV6.2579 PO; -FURO20TA4 PO; -OLME20TA10 PO; -OLME20TA22 PO; +TORS100T16 PO; +VITAD50000 PO
== END | disposition home or self-care (01) ==
LOC: RAH 13:26
PROVIDERS: ATTEND Family Medicine
DX: Z12.31 Encounter for screening mammogram for malignant neoplasm of breast (principal)
CPT/HCPCS: 77067

== ENCOUNTER 2020-10-29 06:00 | Day surgery (SDC) | payer MEDICARE ==
[2020-10-26 11:54] LABS: BASOPHILS % (AUTO) 0.5 % (0.0-5.0); EOSINOPHILS % (AUTO) 2.3 % (0.0-8.0); HEMATOCRIT 35.5 % (36-48); LYMPHOCYTES % (AUTO) 17.3 % (21.0-51.0); MEAN CORPUSCULAR HEMOGLOBIN 27.6 pg (27.0-33.0); MEAN CORPUSCULAR HGB CONC 31.8 g/dL (32.0-36.0); MEAN CORPUSCULAR VOLUME 86.8 fL (79-99); MONOCYTES % (AUTO) 5.1 % (3.0-13.0); NEUTROPHILS % (AUTO) 74.5 % (40.0-77.0); PLATELET COUNT (AUTO) 265 K/uL (130-400); RED BLOOD CELL COUNT(AUTO) 4.09 MIL/uL (4.00-5.50); RED CELL DISTRIBUTION WIDTH 13.6 % (11.0-15.5); WHITE BLOOD COUNT (AUTO) 12.8 K/uL (4.8-10.8)
[2020-10-26 12:02] LABS: APPEARANCE,URINE CLOUDY (CLEAR); BILIRUBIN,URINE NEGATIVE (NEGATIVE); COLOR,URINE YELLOW (YELLOW); GLUCOSE, URINE (UA) NEGATIVE (NEGATIVE); KETONES,URINE NEGATIVE (NEGATIVE); LEUKOCYTE ESTERASE ,URINE LARGE (NEGATIVE); NITRATE,URINE NEGATIVE (NEGATIVE); OCCULT BLOOD,URINE TRACE-INTACT (NEGATIVE); PH,URINE 5.5 (5.0-8.0); PROTEIN,URINE 30 mg/dL (NEGATIVE); UROBILINOGEN,URINE 0.2 mg/dL (0.2-1.0)
[2020-10-26 12:06] LABS: CREATININE 2.1 mg/dL (0.5-1.5)
[2020-10-26 12:26] LABS: INR 0.99 (0.85-1.15); PROTHROMBIN TIME 10.8 SEC (9.6-11.6)
[2020-10-26 12:28] LABS: PARTIAL THROMBOPLASTIN TIME 25.9 SEC (26.3-35.5)
[2020-10-26 12:33] LABS: BACTERIA,URINE Moderate /HPF (None Seen); RBC,URINE 0-1 /HPF (0-1); SQUAMOUS EPITHELIAL CELL,UR Few /HPF (0-2); WBC,URINE >100 /HPF (0-1)
[2020-10-28 12:23] VITALS: BP 170/94
[2020-10-29] VITALS (11 sets, daily range): BP systolic 154–179; BP diastolic 52–75
[~2020-10-29] VITALS: Ht 154.9 cm; Wt 83.6 kg
[~2020-10-29 06:00] MED LIST changes: -AEC81 PO; -CARV6.2579 PO; +INSNOV SQ; -INSU100V12 SQ; +INSU100V37 SQ; +OLME20TA22 PO; -TETR15DR98 OU; -VITAD50000 PO; +VITAMIN D PO; -[UNRECOGNIZED DRUG - REMARK] IH; -[UNRECOGNIZED DRUG - REMARK] OU
[2020-10-29 06:26] LABS: INR 1.01 (0.85-1.15)
[2020-10-29] MEDS ORDERED: NACL 0.9% 1000ML 1,000 ML IV ONE (06:26)
[2020-10-29 06:27] LABS: PARTIAL THROMBOPLASTIN TIME 25.2 SEC (26.3-35.5)
[2020-10-29] MEDS ORDERED: SOLU-MEDROL 125MG VIAL ONE (09:08)
[2020-10-29] MEDS ORDERED: NITROGLYCERIN 2 MG VIAL IV ONE (09:14)
[2020-10-29] MEDS ORDERED: BIVALIRUDIN 250 MG/VIAL IV ONE (09:14)
[2020-10-29] MEDS ORDERED: LIDOCAINE HCL 400MG/20ML VIAL ONE (09:14)
[2020-10-29] MEDS ORDERED: IOHEXOL 350 MG/ML 100ML INFUS..BTL IV ONE (09:14)
[2020-10-29] MEDS ORDERED: SODIUM BICARB 50MEQ 50ML VIAL 50 ML ONE (09:34)
[2020-10-29] MEDS ORDERED: FENTANYL CITRATE PF 50 MCG/1 ML 2ML VIAL ONE (09:49)
[2020-10-29] MEDS ORDERED: ENALAPRILAT DIHYDRATE 1.25 MG/ML 2ML VIAL IVP ONE (10:12)
[2020-10-29] MEDS ORDERED: DEXTROSE 50%-WATER 50 ML DISP.SYRIN IV PRN (10:15)
[2020-10-29] MEDS ORDERED: GLUCAGON 1MG KIT 1 MG ML IM PRN (10:15)
[2020-10-29] MEDS ORDERED: INSULIN REGULAR, HUMAN 3ML 100 UNIT in 0.9%NACL 100ML 99 ML IV PRN ×4 (10:15)
[2020-10-29] MEDS ORDERED: FUROSEMIDE 20MG VIAL ONE (10:30)
[2020-10-29] MEDS ORDERED: INSULIN LISPRO 100 UNIT/ML 3ML SQ SCH ×8 (11:30→12:00)
[2020-10-29] MEDS ORDERED: INSULIN HUMULIN R 100 UNIT/ML 3ML SQ SCH ×8 (11:30→12:00)
[2020-10-29] MEDS ORDERED: PHARMACY COMMUNICATION MISC SCH (12:45)
== END 2020-10-29 16:40 | disposition home or self-care (01) ==
LOC: DAH 06:00
PROVIDERS: ATTEND Internal Medicine Cardiovascular Disease
DX: I27.20 Pulmonary hypertension, unspecified (principal); I47.2 Ventricular tachycardia; I42.8 Other cardiomyopathies; I11.0 Hypertensive heart disease with heart failure; I50.43 Acute on chronic combined systolic (congestive) and diastolic (congestive) heart failure; E11.9 Type 2 diabetes mellitus without complications; E03.9 Hypothyroidism, unspecified; M19.90 Unspecified osteoarthritis, unspecified site; J45.909 Unspecified asthma, uncomplicated; E78.5 Hyperlipidemia, unspecified; G47.33 Obstructive sleep apnea (adult) (pediatric); E66.01 Morbid (severe) obesity due to excess calories; Z79.01 Long term (current) use of anticoagulants; Z79.899 Other long term (current) drug therapy; Z79.84 Long term (current) use of oral hypoglycemic drugs; Z95.810 Presence of automatic (implantable) cardiac defibrillator; Z90.49 Acquired absence of other specified parts of digestive tract; Z98.890 Other specified postprocedural states; Z98.891 History of uterine scar from previous surgery; Z83.3 Family history of diabetes mellitus; Z82.49 Family history of ischemic heart disease and other diseases of the circulatory system; Z88.3 Allergy status to other anti-infective agents; Z68.36 Body mass index [BMI] 36.0-36.9, adult
CPT/HCPCS: 36415 ×2; 71045; 80048; 81001; 82948 ×2; 85025; 85610 ×2; 85730 ×2; 87077; 87088; 87186; 93005; 93451; A4215; A4216; A4221; A4222; A4223 ×3; A4606; A4663; C1894 ×2; J1644; J1940; J2930; J3010; J3490 ×4; J7030; 99156; J0583; Q9967

== ENCOUNTER 2020-11-26 08:53 | Day surgery (SDC) | payer MEDICARE ==
[2020-11-24 09:10] VITALS: BP 168/72
[2020-11-24 09:52] LABS: BASOPHILS % (AUTO) 0.5 % (0.0-5.0); EOSINOPHILS % (AUTO) 3.3 % (0.0-8.0); HEMATOCRIT 35.1 % (36-48); LYMPHOCYTES % (AUTO) 20.9 % (21.0-51.0); MEAN CORPUSCULAR HEMOGLOBIN 27.2 pg (27.0-33.0); MEAN CORPUSCULAR HGB CONC 31.6 g/dL (32.0-36.0); MONOCYTES % (AUTO) 5.2 % (3.0-13.0); NEUTROPHILS % (AUTO) 69.5 % (40.0-77.0); PLATELET COUNT (AUTO) 284 K/uL (130-400); RED BLOOD CELL COUNT(AUTO) 4.08 MIL/uL (4.00-5.50); RED CELL DISTRIBUTION WIDTH 14.3 % (11.0-15.5); WHITE BLOOD COUNT (AUTO) 12.8 K/uL (4.8-10.8)
[2020-11-24 09:58] LABS: APPEARANCE,URINE Clear (CLEAR); BILIRUBIN,URINE Negative (NEGATIVE); COLOR,URINE Yellow (YELLOW); GLUCOSE, URINE (UA) Negative (NEGATIVE); KETONES,URINE Negative (NEGATIVE); LEUKOCYTE ESTERASE ,URINE Negative (NEGATIVE); NITRATE,URINE Negative (NEGATIVE); OCCULT BLOOD,URINE Negative (NEGATIVE); PROTEIN,URINE Trace mg/dL (NEGATIVE); UROBILINOGEN,URINE 0.2 mg/dL (0.2-1.0)
[2020-11-24 10:00] LABS: RBC,URINE 0-1 /HPF (0-1); WBC,URINE 0-1 /HPF (0-1)
[2020-11-24 10:01] LABS: INR 0.98 (0.85-1.15); POTASSIUM 4.7 mmol/L (3.5-5.1); PROTHROMBIN TIME 10.7 SEC (9.6-11.6)
[2020-11-24 10:01] LABS: BACTERIA,URINE Rare /HPF (None Seen); SQUAMOUS EPITHELIAL CELL,UR Rare /HPF (0-2)
[2020-11-24 10:02] LABS: PARTIAL THROMBOPLASTIN TIME 25.7 SEC (26.3-35.5)
[2020-11-26] VITALS (7 sets, daily range): BP systolic 168–177; BP diastolic 54–68
[~2020-11-26] VITALS: Ht 132.1 cm; Wt 84.7 kg
[~2020-11-26 08:53] MED LIST changes: +0.9% NACL 500ML IV.SOLN 500 ML IV SCH; +ADV250 IH; +ALLO100T PO; +AMLO-257 PO; +AUD IH; +BIMA12.5OS OD; +BISA5TAB12 PO; +CARV6.25 PO; +ESCI5TAB16 PO; +EZET10TA48 PO; +FENO67CA PO; +HYDR12.54 PO; +ICOS1CAP PO; +LOSA25TA41 PO; +MAGN400T40 PO; +NITR0.4T SL; +PANT40TA54 PO; +PRED20TA3 PO
[2020-11-26] MEDS ORDERED: DiphenhydrAMINE HCL 50 MG/ML VIAL IVP SCH (10:00)
[2020-11-26] MEDS ORDERED: SOLU-MEDROL 125MG VIAL IVP SCH (10:00)
[2020-11-26] MEDS ORDERED: IODIXANOL 320 MG/ML 100 ML VIAL ONE (13:13)
[2020-11-26] MEDS ORDERED: SODIUM BICARB 50MEQ 50ML VIAL 50 ML ONE (13:13)
[2020-11-26] MEDS ORDERED: HEPARIN 10,000 UNIT/10ML (1,000 UNIT/ML) VIAL ONE (13:13)
[2020-11-26] MEDS ORDERED: LIDOCAINE HCL 400MG/20ML VIAL ONE (13:13)
[2020-11-26] MEDS ORDERED: FENTANYL CITRATE PF 50 MCG/1 ML 2ML VIAL ONE (13:13)
[2020-11-26] MEDS ORDERED: MIDAZOLAM HCL 1 MG/ML 2ML VIAL ONE (13:13)
== END 2020-11-26 17:15 | disposition home or self-care (01) ==
LOC: DAH 08:53
PROVIDERS: ATTEND Internal Medicine Cardiovascular Disease
DX: I50.42 Chronic combined systolic (congestive) and diastolic (congestive) heart failure (principal); I25.10 Atherosclerotic heart disease of native coronary artery without angina pectoris; I11.0 Hypertensive heart disease with heart failure; E78.5 Hyperlipidemia, unspecified; E11.9 Type 2 diabetes mellitus without complications; E03.9 Hypothyroidism, unspecified; J45.909 Unspecified asthma, uncomplicated; M19.90 Unspecified osteoarthritis, unspecified site; E66.9 Obesity, unspecified; Z98.890 Other specified postprocedural states; Z95.810 Presence of automatic (implantable) cardiac defibrillator; Z90.49 Acquired absence of other specified parts of digestive tract; Z98.891 History of uterine scar from previous surgery; Z68.36 Body mass index [BMI] 36.0-36.9, adult; Z82.49 Family history of ischemic heart disease and other diseases of the circulatory system; Z83.3 Family history of diabetes mellitus; Z79.01 Long term (current) use of anticoagulants; Z88.1 Allergy status to other antibiotic agents; Z79.899 Other long term (current) drug therapy; Z79.4 Long term (current) use of insulin
CPT/HCPCS: 33289; 36415; 71045; 80048; 81001; 82948 ×2; 85025; 85610; 85730; 93005; A4215; A4216; A4221; A4222; A4223 ×3; A4606; A4663; C1760; C1769 ×2; C1894 ×2; C2624; J1200; J1644; J2250; J2930; J3010; J3490 ×2; Q9967; 99156; 99157

== ENCOUNTER 2021-03-08 17:31 | Inpatient (IN) | payer MEDICARE ==
[~2021-03-08] VITALS: Ht 152.4 cm; Wt 83.3 kg
[~2021-03-08 17:31] MED LIST changes: -0.9% NACL 500ML IV.SOLN 500 ML IV SCH; -ADV250 IH; -ALLO100T PO; -BISA5TAB12 PO; -CARV6.25 PO; -ESCI5TAB16 PO; -EZET10TA48 PO; -FENO67CA PO; -HYDR12.54 PO; -ICOS1CAP PO; -LOSA25TA41 PO; -MAGN400T40 PO; -NITR0.4T SL; -PANT40TA54 PO
[2021-03-08] MEDS ORDERED: CYCLOBENZAPRINE HCL 10 MG TABLET PO SCH (18:00)
[2021-03-08] MEDS ORDERED: ACETAMINOPHEN 500 MG TABLET PO SCH (18:00)
[2021-03-08 18:24] LABS: BASOPHILS % (AUTO) 0.3 % (0.0-5.0); EOSINOPHILS % (AUTO) 2.2 % (0.0-8.0); LYMPHOCYTES % (AUTO) 15.3 % (21.0-51.0); MEAN CORPUSCULAR HEMOGLOBIN 27.3 pg (27.0-33.0); MEAN CORPUSCULAR HGB CONC 31.9 g/dL (32.0-36.0); MEAN CORPUSCULAR VOLUME 85.8 fL (79-99); MONOCYTES % (AUTO) 5.4 % (3.0-13.0); NEUTROPHILS % (AUTO) 76.4 % (40.0-77.0); PLATELET COUNT (AUTO) 205 K/uL (130-400); RED BLOOD CELL COUNT(AUTO) 3.73 MIL/uL (4.00-5.50); RED CELL DISTRIBUTION WIDTH 13.2 % (11.0-15.5)
[2021-03-08 18:36] LABS: CARBON DIOXIDE 29 mmol/L (21-32); CHLORIDE 99 mmol/L (101-111); CREATININE 2.8 mg/dL (0.5-1.5); GLOMERULAR FILTR. RATE CALC 17 mL/min (>60); GLUCOSE,RANDOM 222 mg/dL (70-105); POTASSIUM 4.8 mmol/L (3.5-5.1); SODIUM SERUM 139 mmol/L (136-145)
[2021-03-08 18:43] LABS: ALANINE AMINOTRANSFERASE 23 U/L (12-78); ALBUMIN 3.7 g/dL (3.5-5.0); ASPARTATE AMINOTRANSFERASE 17 U/L (10-37); BILIRUBIN,TOTAL 0.4 mg/dL (0.2-1.0)
[2021-03-08 18:53] LABS: UREA NITROGEN, BLOOD 147 mg/dL (7-18)
[2021-03-08 19:00] LABS: CRP QUANTITATIVE < 2.00 mg/L (0.00-9.0)
[2021-03-08] MEDS ORDERED: ACETAMINOPHEN WITH CODEINE 1 TAB TAB PO PRN (20:30)
[2021-03-08] MEDS ORDERED: HYDRALAZINE 20MG/ML VIAL IV PRN (20:30)
[2021-03-08] MEDS ORDERED: HYDROCODONE/ACETAMINOPHEN 5/325 MG TAB PO PRN (20:30)
[2021-03-08] MEDS ORDERED: ONDANSETRON 4MG INJ IV PRN (20:30)
[2021-03-08] MEDS ORDERED: ALBUTEROL INHALER 90MCG/INH IH PRN (21:00)
[2021-03-08] MEDS: HEPARIN 5,000 UNIT VIAL SQ SCH (21:16)
[2021-03-08] MEDS: 0.9%NACL 1000ML 1,000 ML IV SCH (21:16)
[2021-03-08] MEDS: INSULIN HUMULIN R 100 UNIT/ML 3ML SQ SCH (21:16)
[2021-03-08] MEDS: FAMOTIDINE 20MG TAB PO SCH (21:16)
[2021-03-08 22:15] VITALS: BP 146/57
[2021-03-09 01:44] LABS: APPEARANCE,URINE Cloudy (CLEAR); BILIRUBIN,URINE Negative (NEGATIVE); COLOR,URINE Yellow (YELLOW); GLUCOSE, URINE (UA) Negative (NEGATIVE); KETONES,URINE Negative (NEGATIVE); LEUKOCYTE ESTERASE ,URINE Moderate (NEGATIVE); NITRATE,URINE Negative (NEGATIVE); OCCULT BLOOD,URINE Negative (NEGATIVE); PH,URINE 6.5 (5.0-8.0); PROTEIN,URINE POS 1+ mg/dL (NEGATIVE); UROBILINOGEN,URINE 0.2 mg/dL (0.2-1.0)
[2021-03-09 01:55] LABS: BACTERIA,URINE Few /HPF (None Seen); RBC,URINE 0-1 /HPF (0-1)
[2021-03-09 03:35] LABS: BASOPHILS % (AUTO) 0.5 % (0.0-5.0); EOSINOPHILS % (AUTO) 4.3 % (0.0-8.0); HEMATOCRIT 31.3 % (36-48); LYMPHOCYTES % (AUTO) 28.6 % (21.0-51.0); MEAN CORPUSCULAR HEMOGLOBIN 27.8 pg (27.0-33.0); MEAN CORPUSCULAR HGB CONC 31.9 g/dL (32.0-36.0); MEAN CORPUSCULAR VOLUME 86.9 fL (79-99); MONOCYTES % (AUTO) 8.6 % (3.0-13.0); NEUTROPHILS % (AUTO) 57.5 % (40.0-77.0); PLATELET COUNT (AUTO) 195 K/uL (130-400); RED CELL DISTRIBUTION WIDTH 13.1 % (11.0-15.5); WHITE BLOOD COUNT (AUTO) 11.1 K/uL (4.8-10.8)
[2021-03-09 03:46] LABS: HEMOGLOBIN A1C 8.3 % (4.0-6.0)
[2021-03-09 03:49] LABS: CREATININE 2.4 mg/dL (0.5-1.5); MAGNESIUM 2.9 mg/dL (1.80-2.40); PHOSPHORUS 4.3 mg/dL (2.5-4.9); POTASSIUM 4.4 mmol/L (3.5-5.1)
[2021-03-09 04:09] VITALS: BP 131/47
[2021-03-09] MEDS: 0.9%NACL 1000ML 1,000 ML IV SCH ×4 (06:02→21:00)
[2021-03-09] MEDS: INSULIN HUMULIN R 100 UNIT/ML 3ML SQ SCH ×4 (06:03→21:00)
[2021-03-09 08:00] VITALS: BP 151/57
[2021-03-09] MEDS: HEPARIN 5,000 UNIT VIAL SQ SCH ×3 (09:22→21:07)
[2021-03-09] MEDS ORDERED: METO2.5T2 PO (11:18)
[2021-03-09] MEDS ORDERED: ACET-2113 PO (11:18)
[2021-03-09] MEDS ORDERED: INSU100I24 SQ (11:18)
[2021-03-09] MEDS ORDERED: INSU100I3 SQ (11:18)
[2021-03-09] MEDS ORDERED: OLME20TA10 PO (11:18)
[2021-03-09] MEDS ORDERED: CARV3.12 PO (11:18)
[2021-03-09] MEDS ORDERED: BISA-72 PO (11:18)
[2021-03-09] MEDS ORDERED: DOCU100T PO (11:18)
[2021-03-09] MEDS ORDERED: LEVO100C4 PO (11:18)
[2021-03-09] MEDS ORDERED: TORS100T16 PO (11:18)
[2021-03-09] MEDS ORDERED: PRAV10TA39 PO (11:18)
[2021-03-09 12:00] VITALS: BP 153/57
[2021-03-09 16:00] VITALS: BP 149/63
[2021-03-09 16:33] LABS: CREATININE,URINE RANDOM 35 mg/dL (30-135); SODIUM,URINE RANDOM 39 mmol/l (40-220)
[2021-03-09 20:00] VITALS: BP 146/67
[2021-03-09] MEDS: FAMOTIDINE 20MG TAB PO SCH (21:08)
[2021-03-10] VITALS: BP 153/60
[2021-03-10 03:57] LABS: BASOPHILS % (AUTO) 0.6 % (0.0-5.0); EOSINOPHILS % (AUTO) 4.3 % (0.0-8.0); HEMATOCRIT 31.5 % (36-48); LYMPHOCYTES % (AUTO) 23.6 % (21.0-51.0); MEAN CORPUSCULAR HEMOGLOBIN 27.7 pg (27.0-33.0); MEAN CORPUSCULAR HGB CONC 32.1 g/dL (32.0-36.0); MEAN CORPUSCULAR VOLUME 86.3 fL (79-99); MONOCYTES % (AUTO) 8.3 % (3.0-13.0); NEUTROPHILS % (AUTO) 62.7 % (40.0-77.0); PLATELET COUNT (AUTO) 197 K/uL (130-400); RED BLOOD CELL COUNT(AUTO) 3.65 MIL/uL (4.00-5.50); RED CELL DISTRIBUTION WIDTH 12.9 % (11.0-15.5); WHITE BLOOD COUNT (AUTO) 8.8 K/uL (4.8-10.8)
[2021-03-10 04:00] VITALS: BP 130/54
[2021-03-10 04:05] LABS: CREATININE 1.8 mg/dL (0.5-1.5); MAGNESIUM 2.4 mg/dL (1.80-2.40); PHOSPHORUS 3.3 mg/dL (2.5-4.9); POTASSIUM 4.3 mmol/L (3.5-5.1); URIC ACID 11.1 mg/dL (2.6-7.2)
[2021-03-10 04:16] LABS: % IRON SATURATION 25.6 % (22-44)
[2021-03-10] MEDS: INSULIN HUMULIN R 100 UNIT/ML 3ML SQ SCH ×2 (05:36→14:21)
[2021-03-10] MEDS: 0.9%NACL 1000ML 1,000 ML IV SCH (06:44)
[2021-03-10 08:00] VITALS: BP 128/60
[2021-03-10] MEDS ORDERED: Vitamin B Complex/Vit C/Folic Acid PO SCH (09:00)
[2021-03-10] MEDS: HEPARIN 5,000 UNIT VIAL SQ SCH ×2 (09:25→14:00)
[2021-03-10 12:00] VITALS: BP 181/64
== END 2021-03-10 17:00 | disposition home or self-care (01) | DRG 683 ==
LOC: EDH 17:31 → EDHIP 20:21 → 3AH 21:20
PROVIDERS: ADMIT Internal Medicine; ATTEND Internal Medicine
DX: N17.9 Acute kidney failure, unspecified (principal); N39.0 Urinary tract infection, site not specified; I12.9 Hypertensive chronic kidney disease with stage 1 through stage 4 chronic kidney disease, or unspecified chronic kidney disease; E11.22 Type 2 diabetes mellitus with diabetic chronic kidney disease; N18.9 Chronic kidney disease, unspecified; D72.829 Elevated white blood cell count, unspecified; M19.90 Unspecified osteoarthritis, unspecified site; E78.5 Hyperlipidemia, unspecified; J45.909 Unspecified asthma, uncomplicated; R62.7 Adult failure to thrive; E86.9 Volume depletion, unspecified; F06.4 Anxiety disorder due to known physiological condition; F32.A Depression, unspecified; F41.1 Generalized anxiety disorder; E66.9 Obesity, unspecified; E78.00 Pure hypercholesterolemia, unspecified; K80.20 Calculus of gallbladder without cholecystitis without obstruction; Z68.35 Body mass index [BMI] 35.0-35.9, adult; Z91.041 Radiographic dye allergy status; Z82.0 Family history of epilepsy and other diseases of the nervous system; Z82.5 Family history of asthma and other chronic lower respiratory diseases; Z82.49 Family history of ischemic heart disease and other diseases of the circulatory system; Z83.3 Family history of diabetes mellitus
CPT/HCPCS: 36415; 70450; 71045; 74176; 76770; 80048; 80053; 81001; 82270; 82570; 82948; 83036; 83540; 83550; 83735; 84100; 84145; 84300; 84484; 84550; 85025; 86140; 87040; 87088; 93005; G0378; J1644; J1815; J7030

== ENCOUNTER 2021-04-12 11:23 | Inpatient (IN) | payer MEDICARE ==
[~2021-04-12] VITALS: Ht 154.9 cm; Wt 86.2 kg
[~2021-04-12 11:23] MED LIST changes: +ACET-2113 PO; -ACET-2247 PO; -AMLO-257 PO; -AUD IH; -BIMA12.5OS OD; +BISA-72 PO; +CARV3.12 PO; +DOCU100T PO; -INSNOV SQ; +INSU100I24 SQ; +INSU100I3 SQ; -INSU100V37 SQ; +LEVO100C4 PO; -LEVO112T7 PO; -LINA145C PO; +OLME20TA10 PO; -OLME20TA22 PO; -PRED20TA3 PO; -VITAMIN D PO
[2021-04-12 12:23] LABS: BASOPHILS % (AUTO) 0.5 % (0.0-5.0); EOSINOPHILS % (AUTO) 3.1 % (0.0-8.0); HEMATOCRIT 34.7 % (36-48); LYMPHOCYTES % (AUTO) 22.7 % (21.0-51.0); MEAN CORPUSCULAR HEMOGLOBIN 27.7 pg (27.0-33.0); MEAN CORPUSCULAR HGB CONC 31.4 g/dL (32.0-36.0); MEAN CORPUSCULAR VOLUME 88.3 fL (79-99); MONOCYTES % (AUTO) 7.3 % (3.0-13.0); NEUTROPHILS % (AUTO) 66.1 % (40.0-77.0); PLATELET COUNT (AUTO) 241 K/uL (130-400); RED BLOOD CELL COUNT(AUTO) 3.93 MIL/uL (4.00-5.50); RED CELL DISTRIBUTION WIDTH 14.8 % (11.0-15.5); WHITE BLOOD COUNT (AUTO) 13.1 K/uL (4.8-10.8)
[2021-04-12 12:54] LABS: ALBUMIN 3.7 g/dL (3.5-5.0); BILIRUBIN,TOTAL 0.3 mg/dL (0.2-1.0); CREATININE 1.2 mg/dL (0.5-1.5); POTASSIUM 5.6 mmol/L (3.5-5.1); TOTAL PROTEIN, SERUM 7.7 g/dL (6.0-8.3)
[2021-04-12] MEDS ORDERED: ACETAMINOPHEN 500 MG TABLET PO ONE (13:00)
[2021-04-12] MEDS ORDERED: METOCLOPRAMIDE 10 MG/2 ML VIAL IVP ONE (13:00)
[2021-04-12] MEDS ORDERED: 0.9%NACL 1000ML 1,000 ML IV ONE (13:00)
[2021-04-12] MEDS ORDERED: DiphenhydrAMINE HCL 50 MG/ML VIAL IM ONE (13:00)
[2021-04-12 13:01] LABS: B-TYPE NATRIURETIC PEPTIDE 1070 pg/mL (0-100)
[2021-04-12 13:04] LABS: LACTATE DEHYDROGENASE 343 U/L (81-234)
[2021-04-12 13:15] LABS: CRP QUANTITATIVE < 2.00 mg/L (0.00-9.0)
[2021-04-12] MEDS ORDERED: MORPHINE 2 MG SYG ONE (13:42)
[2021-04-12] MEDS ORDERED: ASPIRIN 325MG TAB ONE (13:43)
[2021-04-12] MEDS ORDERED: FUROSEMIDE 40MG VIAL IV ONE (15:00)
[2021-04-12 15:43] LABS: APPEARANCE,URINE Clear (CLEAR); BILIRUBIN,URINE Negative (NEGATIVE); COLOR,URINE Yellow (YELLOW); GLUCOSE, URINE (UA) Negative (NEGATIVE); KETONES,URINE Negative (NEGATIVE); LEUKOCYTE ESTERASE ,URINE Small (NEGATIVE); NITRATE,URINE Negative (NEGATIVE); OCCULT BLOOD,URINE Negative (NEGATIVE); PROTEIN,URINE 300 mg/dL (NEGATIVE); UROBILINOGEN,URINE 0.2 mg/dL (0.2-1.0)
[2021-04-12 15:58] LABS: BACTERIA,URINE Few /HPF (None Seen); RBC,URINE 0-1 /HPF (0-1)
[2021-04-12 15:59] LABS: SQUAMOUS EPITHELIAL CELL,UR Rare /HPF (0-2)
[2021-04-12] MEDS ORDERED: CEFTRIAXONE 1G VIAL IVP SCH (16:00)
[2021-04-12] MEDS ORDERED: HYDRALAZINE 20MG/ML VIAL IV PRN (16:00)
[2021-04-12] MEDS ORDERED: ACETAMINOPHEN 325 MG TAB PO PRN ×2 (16:00)
[2021-04-12] MEDS ORDERED: ONDANSETRON 4MG INJ IV PRN (16:00)
[2021-04-12 16:03] LABS: ABG BASE EXCESS -7.8 mmol/L (-2.0-3.0); ABG HCO3 19.7 mmol/L (21.0-28.0); ABG OXYGEN SATURATION 98.9 % (95.0-99.0); ABG PCO2 49 mmHg (32-45)
[2021-04-12] MEDS: INSULIN HUMULIN R 100 UNIT/ML 3ML SQ SCH ×2 (16:25→20:57)
[2021-04-12] MEDS ORDERED: FUROSEMIDE 20MG VIAL IV SCH (16:30)
[2021-04-12 17:07] LABS: CHOLESTEROL 201 mg/dL (<200); HDL CHOLESTEROL 55 mg/dL (35-85); LDL DIRECT 97 mg/dL (0-99); TRIGLYCERIDES 222 mg/dL (30-200)
[2021-04-12] MEDS ORDERED: ALBUTEROL 0.083% 2.5 MG/3 ML INH IH PRN (18:00)
[2021-04-12] MEDS ORDERED: SODIUM BICARB 8.4% 50ML SYRINGE IVP ONE (20:00)
[2021-04-12] MEDS ORDERED: DEXTROSE 50%-WATER 25 GM/50 ML VIAL IV ONE (20:00)
[2021-04-12] MEDS ORDERED: CALCIUM GLUC 1GM 1 GM in 0.9%NACL 100ML 100 ML IV ONE (20:00)
[2021-04-12] MEDS ORDERED: INSULIN HUMULIN R 100 UNIT/ML 3ML IV ONE (20:00)
[2021-04-12] MEDS ORDERED: CALCIUM GLUC 1GM/10ML VIAL ONE (20:33)
[2021-04-12] MEDS ORDERED: DEXTROSE 50%-WATER 50 ML DISP.SYRIN IV ONE (20:33)
[2021-04-12] MEDS ORDERED: SODIUM BICARB 50MEQ 50ML VIAL 50 ML ONE (20:33)
[2021-04-12] MEDS: FAMOTIDINE 20MG VIAL IV SCH (20:56)
[2021-04-12] MEDS: KAYEXALATE 15GM/60ML PO SCH ×2 (20:56→22:41)
[2021-04-12] MEDS ORDERED: INSULIN GLARGINE 100 UNITS/ML 10 ML VIAL SQ SCH (21:00)
[2021-04-13] MEDS: ALBUTEROL 0.083% 2.5 MG/3 ML INH IH SCH ×5 (00:14→23:45)
[2021-04-13 04:30] LABS: BASOPHILS % (AUTO) 0.4 % (0.0-5.0); EOSINOPHILS % (AUTO) 2.6 % (0.0-8.0); HEMATOCRIT 29.9 % (36-48); MEAN CORPUSCULAR HEMOGLOBIN 27.2 pg (27.0-33.0); MEAN CORPUSCULAR HGB CONC 31.4 g/dL (32.0-36.0); MEAN CORPUSCULAR VOLUME 86.4 fL (79-99); MONOCYTES % (AUTO) 8.3 % (3.0-13.0); NEUTROPHILS % (AUTO) 73.3 % (40.0-77.0); PLATELET COUNT (AUTO) 197 K/uL (130-400); RED BLOOD CELL COUNT(AUTO) 3.46 MIL/uL (4.00-5.50); WHITE BLOOD COUNT (AUTO) 11.2 K/uL (4.8-10.8)
[2021-04-13] MEDS ORDERED: FUROSEMIDE 20MG VIAL IV SCH (04:30)
[2021-04-13 04:43] LABS: B-TYPE NATRIURETIC PEPTIDE 1090 pg/mL (0-100)
[2021-04-13 04:45] LABS: BILIRUBIN,TOTAL 0.3 mg/dL (0.2-1.0); CREATININE 1.3 mg/dL (0.5-1.5); MAGNESIUM 2.3 mg/dL (1.80-2.40); TOTAL PROTEIN, SERUM 6.7 g/dL (6.0-8.3)
[2021-04-13] MEDS ORDERED: DEXTROSE 50%-WATER 50 ML DISP.SYRIN IV ONE (07:28)
[2021-04-13] MEDS: INSULIN HUMULIN R 100 UNIT/ML 3ML SQ SCH ×4 (07:30→21:30)
[2021-04-13] MEDS: FAMOTIDINE 20MG VIAL IV SCH (08:13)
[2021-04-13 08:33] VITALS: BP 164/72
[2021-04-13] MEDS ORDERED: ENOXAPARIN SODIUM 30 MG/0.3 ML SQ SCH (09:00)
[2021-04-13 11:25] VITALS: BP 165/56
[2021-04-13] MEDS: CARVEDILOL 3.125 MG TABLET PO SCH ×2 (12:08→21:29)
[2021-04-13] MEDS: LOSARTAN 100 MG TABLET PO SCH (12:08)
[2021-04-13] MEDS: SIMVASTATIN 10 MG TABLET PO SCH (12:08)
[2021-04-13] MEDS ORDERED: INSU100I3 SQ (12:23)
[2021-04-13 16:00] VITALS: BP 158/75
[2021-04-13 20:04] VITALS: BP 150/93
[2021-04-13] MEDS: FUROSEMIDE 40MG VIAL IV SCH (21:29)
[2021-04-13] MEDS: INSULIN GLARGINE 100 UNITS/ML 10 ML VIAL SQ SCH (21:30)
[2021-04-13 23:22] VITALS: BP 151/98
[2021-04-14 04:07] VITALS: BP 142/52
[2021-04-14] MEDS: INSULIN HUMULIN R 100 UNIT/ML 3ML SQ SCH ×4 (05:43→19:58)
[2021-04-14] MEDS: FUROSEMIDE 40MG VIAL IV SCH ×2 (05:44→20:09)
[2021-04-14] MEDS: ALBUTEROL 0.083% 2.5 MG/3 ML INH IH SCH ×4 (06:27→23:26)
[2021-04-14] MEDS ORDERED: LEVOTHYROXINE 100 MCG TABLET PO SCH (06:30)
[2021-04-14 08:02] VITALS: BP 148/55
[2021-04-14] MEDS: CARVEDILOL 3.125 MG TABLET PO SCH ×3 (08:25→19:56)
[2021-04-14] MEDS: LOSARTAN 100 MG TABLET PO SCH (08:25)
[2021-04-14] MEDS: SIMVASTATIN 10 MG TABLET PO SCH (08:25)
[2021-04-14] MEDS: ENOXAPARIN SODIUM 30 MG/0.3 ML SQ SCH (08:26)
[2021-04-14] MEDS ORDERED: FUROSEMIDE 40 MG TABLET PO SCH (09:00)
[2021-04-14 12:01] VITALS: BP 129/51
[2021-04-14 16:16] VITALS: BP 156/67
[2021-04-14] MEDS ORDERED: PHARMACY COMMUNICATION MISC SCH (19:30)
[2021-04-14] MEDS: INSULIN GLARGINE 100 UNITS/ML 10 ML VIAL SQ SCH (19:57)
[2021-04-14 20:00] VITALS: BP 181/63
[2021-04-14 23:52] VITALS: BP 145/89
[2021-04-15] VITALS (8 sets, daily range): BP systolic 131–153; BP diastolic 52–98
[2021-04-15] MEDS: FUROSEMIDE 40MG VIAL IV SCH ×2 (03:15→16:04)
[2021-04-15 05:25] LABS: BASOPHILS % (AUTO) 0.6 % (0.0-5.0); EOSINOPHILS % (AUTO) 3.4 % (0.0-8.0); HEMATOCRIT 28.9 % (36-48); LYMPHOCYTES % (AUTO) 20.1 % (21.0-51.0); MEAN CORPUSCULAR HEMOGLOBIN 27.6 pg (27.0-33.0); MEAN CORPUSCULAR HGB CONC 31.1 g/dL (32.0-36.0); MEAN CORPUSCULAR VOLUME 88.7 fL (79-99); MONOCYTES % (AUTO) 9.7 % (3.0-13.0); NEUTROPHILS % (AUTO) 65.3 % (40.0-77.0); PLATELET COUNT (AUTO) 180 K/uL (130-400); RED BLOOD CELL COUNT(AUTO) 3.26 MIL/uL (4.00-5.50); RED CELL DISTRIBUTION WIDTH 14.6 % (11.0-15.5); WHITE BLOOD COUNT (AUTO) 10.5 K/uL (4.8-10.8)
[2021-04-15 05:42] LABS: CREATININE 1.6 mg/dL (0.5-1.5); POTASSIUM 4.9 mmol/L (3.5-5.1)
[2021-04-15 05:54] LABS: B-TYPE NATRIURETIC PEPTIDE 930 pg/mL (0-100)
[2021-04-15] MEDS: INSULIN HUMULIN R 100 UNIT/ML 3ML SQ SCH ×3 (06:11→16:06)
[2021-04-15] MEDS: ALBUTEROL 0.083% 2.5 MG/3 ML INH IH SCH ×2 (06:31→11:12)
[2021-04-15] MEDS: CARVEDILOL 3.125 MG TABLET PO SCH (09:02)
[2021-04-15] MEDS: ENOXAPARIN SODIUM 30 MG/0.3 ML SQ SCH (09:02)
[2021-04-15] MEDS: LOSARTAN 100 MG TABLET PO SCH (09:02)
[2021-04-15] MEDS: SIMVASTATIN 10 MG TABLET PO SCH (09:02)
[2021-04-15] MEDS ORDERED: TORS5TAB12 PO (16:47)
[2021-04-15] MEDS ORDERED: CARV6.25 PO (16:47)
[2021-04-15] MEDS ORDERED: LOSA25TA41 PO (16:47)
[2021-04-15] MEDS ORDERED: AMLO-257 PO (16:47)
[2021-04-16] MEDS ORDERED: LOSARTAN 100 MG TABLET PO SCH (09:00)
[2021-04-17] MEDS ORDERED: LEVOTHYROXINE 100 MCG TABLET PO SCH (06:30)
== END 2021-04-15 17:25 | disposition home or self-care (01) | DRG 291 ==
LOC: EDH 11:23 → EDHIP 15:31 → 4CH 04-13 07:40
PROVIDERS: ADMIT Hospitalist; ATTEND Hospitalist
PROC: 5A09357 Assistance with Respiratory Ventilation, Less than 24 Consecutive Hours, Continuous Positive Airway Pressure (ICD-10-PCS; principal; 2021-04-12)
PROC: 5A09357 Assistance with Respiratory Ventilation, Less than 24 Consecutive Hours, Continuous Positive Airway Pressure (ICD-10-PCS; 2021-04-13)
PROC: 5A09357 Assistance with Respiratory Ventilation, Less than 24 Consecutive Hours, Continuous Positive Airway Pressure (ICD-10-PCS; 2021-04-14)
DX: I13.0 Hypertensive heart and chronic kidney disease with heart failure and stage 1 through stage 4 chronic kidney disease, or unspecified chronic kidney disease (principal); I50.43 Acute on chronic combined systolic (congestive) and diastolic (congestive) heart failure; N17.9 Acute kidney failure, unspecified; R45.851 Suicidal ideations; J44.1 Chronic obstructive pulmonary disease with (acute) exacerbation; E66.2 Morbid (severe) obesity with alveolar hypoventilation; J96.12 Chronic respiratory failure with hypercapnia; N18.31 Chronic kidney disease, stage 3a; Z68.36 Body mass index [BMI] 36.0-36.9, adult; E87.5 Hyperkalemia; D64.9 Anemia, unspecified; E11.22 Type 2 diabetes mellitus with diabetic chronic kidney disease; Z20.822 Contact with and (suspected) exposure to COVID-19; K21.9 Gastro-esophageal reflux disease without esophagitis; D72.829 Elevated white blood cell count, unspecified; E03.9 Hypothyroidism, unspecified; E11.649 Type 2 diabetes mellitus with hypoglycemia without coma; E78.00 Pure hypercholesterolemia, unspecified; E78.5 Hyperlipidemia, unspecified; I27.20 Pulmonary hypertension, unspecified; I42.8 Other cardiomyopathies; Z90.49 Acquired absence of other specified parts of digestive tract; Z95.0 Presence of cardiac pacemaker; Z98.49 Cataract extraction status, unspecified eye; Z91.041 Radiographic dye allergy status; Z79.899 Other long term (current) drug therapy; Z82.0 Family history of epilepsy and other diseases of the nervous system; Z82.49 Family history of ischemic heart disease and other diseases of the circulatory system; Z83.3 Family history of diabetes mellitus; I25.110 Atherosclerotic heart disease of native coronary artery with unstable angina pectoris
CPT/HCPCS: 36415; 36600; 70450; 70486; 71045; 72125; 80048; 80053; 80061; 81001; 82435; 82550; 82803; 82947; 82948; 83036; 83605; 83615; 83735; 83874; 83880; 84132; 84295; 84484; 85018; 85025; 85378; 86140; 87088; 87635; 87804; 93005; 93970; 94640; 94660; 94664; C9803; G0378; J0360; J0610; J0696; J1200; J1650; J1815; J1940; J2405; J2765; J3490; J7030; J7070

== ENCOUNTER 2021-04-18 05:57 | Inpatient (IN) | payer MEDICARE ==
[~2021-04-18] VITALS: Ht 160 cm; Wt 84.6 kg
[~2021-04-18 05:57] MED LIST changes: +AMLO-257 PO; -CARV3.12 PO; +CARV6.25 PO; +LOSA25TA41 PO; -OLME20TA10 PO; -PRAV10TA39 PO; -TORS100T16 PO; +TORS5TAB12 PO
[2021-04-18] MEDS ORDERED: FUROSEMIDE 40MG VIAL ONE (06:00)
[2021-04-18] MEDS ORDERED: NITROGLYCERIN 1GM OINT 1 INCH/1GM TD ONE (06:00)
[2021-04-18] MEDS ORDERED: ASPIRIN 325MG TAB ONE (06:00)
[2021-04-18 06:15] LABS: BASOPHILS % (AUTO) 0.5 % (0.0-5.0); EOSINOPHILS % (AUTO) 2.5 % (0.0-8.0); HEMATOCRIT 31.5 % (36-48); LYMPHOCYTES % (AUTO) 27.7 % (21.0-51.0); MEAN CORPUSCULAR HEMOGLOBIN 27.1 pg (27.0-33.0); MEAN CORPUSCULAR HGB CONC 31.1 g/dL (32.0-36.0); MONOCYTES % (AUTO) 7.8 % (3.0-13.0); PLATELET COUNT (AUTO) 267 K/uL (130-400); RED BLOOD CELL COUNT(AUTO) 3.62 MIL/uL (4.00-5.50); RED CELL DISTRIBUTION WIDTH 14.6 % (11.0-15.5); WHITE BLOOD COUNT (AUTO) 14.7 K/uL (4.8-10.8)
[2021-04-18 06:16] LABS: ABG BASE EXCESS -5.5 mmol/L (-2.0-3.0); ABG HCO3 21.1 mmol/L (21.0-28.0); ABG PCO2 45 mmHg (32-45)
[2021-04-18 06:28] LABS: ALBUMIN 3.4 g/dL (3.5-5.0); BILIRUBIN,TOTAL 0.5 mg/dL (0.2-1.0); CREATININE 1.5 mg/dL (0.5-1.5); TOTAL PROTEIN, SERUM 7.5 g/dL (6.0-8.3)
[2021-04-18 06:30] LABS: INR 1.02 (0.85-1.15); PROTHROMBIN TIME 11.1 SEC (9.6-11.6)
[2021-04-18] MEDS ORDERED: ASPIRIN 325MG TAB PO SCH (06:30)
[2021-04-18] MEDS ORDERED: FUROSEMIDE 40MG VIAL IV SCH (06:30)
[2021-04-18] MEDS ORDERED: NITROGLYCERIN 1GM OINT 1 INCH/1GM TD SCH (06:30)
[2021-04-18 06:33] LABS: APPEARANCE,URINE Clear (CLEAR); BILIRUBIN,URINE Negative (NEGATIVE); COLOR,URINE Yellow (YELLOW); GLUCOSE, URINE (UA) Negative (NEGATIVE); KETONES,URINE Negative (NEGATIVE); LEUKOCYTE ESTERASE ,URINE Negative (NEGATIVE); NITRATE,URINE Negative (NEGATIVE); OCCULT BLOOD,URINE Negative (NEGATIVE); PROTEIN,URINE POS 1+ mg/dL (NEGATIVE); UROBILINOGEN,URINE 0.2 mg/dL (0.2-1.0)
[2021-04-18 06:37] LABS: B-TYPE NATRIURETIC PEPTIDE 1790 pg/mL (0-100)
[2021-04-18 06:51] LABS: RBC,URINE 0-1 /HPF (0-1); WBC,URINE 0-1 /HPF (0-1)
[2021-04-18 06:52] LABS: BACTERIA,URINE Rare /HPF (None Seen); SQUAMOUS EPITHELIAL CELL,UR 0-2 /HPF (0-2)
[2021-04-18] MEDS ORDERED: ACETAMINOPHEN 325 MG TAB PO PRN ×2 (07:00)
[2021-04-18] MEDS ORDERED: CEFTRIAXONE 1G VIAL IVP SCH (07:00)
[2021-04-18] MEDS ORDERED: AZITHROMYCIN 500MG VIAL IVPB ONE (07:00)
[2021-04-18] MEDS ORDERED: ONDANSETRON 4MG INJ IV PRN (07:00)
[2021-04-18] MEDS ORDERED: HYDRALAZINE 20MG/ML VIAL IV PRN (07:00)
[2021-04-18] MEDS ORDERED: NITROGLYCERIN 1GM OINT 1 INCH/1GM TD PRN (07:00)
[2021-04-18] MEDS ORDERED: AZITHROMYCIN 500MG+NS 250ML 250 ML IV SCH (07:00)
[2021-04-18] MEDS: INSULIN HUMULIN R 100 UNIT/ML 3ML SQ SCH ×3 (07:30→17:07)
[2021-04-18] MEDS ORDERED: FAMOTIDINE 20MG VIAL IV SCH ×2 (09:00→21:00)
[2021-04-18] MEDS ORDERED: FUROSEMIDE 40MG VIAL IVP SCH (09:00)
[2021-04-18] MEDS: HEPARIN 5,000 UNIT VIAL SQ SCH ×3 (10:03→21:23)
[2021-04-18] MEDS ORDERED: ACET325C6 PO (11:55)
[2021-04-18] MEDS ORDERED: OLME20TA22 PO (12:08)
[2021-04-18] MEDS ORDERED: LINA145C PO (12:09)
[2021-04-18] MEDS ORDERED: ADV250 IH (12:17)
[2021-04-18] MEDS: ATORVASTATIN 40 MG TABLET PO SCH (21:23)
[2021-04-18] MEDS: INSULIN GLARGINE 100 UNITS/ML 10 ML VIAL SQ SCH (21:24)
[2021-04-19 05:39] LABS: BASOPHILS % (AUTO) 0.4 % (0.0-5.0); EOSINOPHILS % (AUTO) 1.2 % (0.0-8.0); HEMATOCRIT 29.7 % (36-48); LYMPHOCYTES % (AUTO) 12.3 % (21.0-51.0); MEAN CORPUSCULAR HEMOGLOBIN 27.7 pg (27.0-33.0); MEAN CORPUSCULAR HGB CONC 30.6 g/dL (32.0-36.0); MEAN CORPUSCULAR VOLUME 90.5 fL (79-99); MONOCYTES % (AUTO) 8.6 % (3.0-13.0); PLATELET COUNT (AUTO) 209 K/uL (130-400); RED BLOOD CELL COUNT(AUTO) 3.28 MIL/uL (4.00-5.50); RED CELL DISTRIBUTION WIDTH 14.6 % (11.0-15.5); WHITE BLOOD COUNT (AUTO) 10.6 K/uL (4.8-10.8)
[2021-04-19] MEDS: INSULIN HUMULIN R 100 UNIT/ML 3ML SQ SCH ×3 (07:30→17:00)
[2021-04-19] MEDS ORDERED: 0.9%NACL 50ML 50 ML IV ONE (07:30)
[2021-04-19 07:43] LABS: ABG BASE EXCESS -2.6 mmol/L (-2.0-3.0); ABG HCO3 22.6 mmol/L (21.0-28.0); ABG OXYGEN SATURATION 98.3 % (95.0-99.0); ABG PCO2 41 mmHg (32-45)
[2021-04-19] MEDS: CEFTRIAXONE 1G VIAL IVP SCH (08:18)
[2021-04-19 08:39] LABS: B-TYPE NATRIURETIC PEPTIDE 1400 pg/mL (0-100)
[2021-04-19 09:01] LABS: ALBUMIN 3.2 g/dL (3.5-5.0); BILIRUBIN,TOTAL 0.4 mg/dL (0.2-1.0); CREATININE 1.8 mg/dL (0.5-1.5); POTASSIUM 4.8 mmol/L (3.5-5.1); TOTAL PROTEIN, SERUM 7.2 g/dL (6.0-8.3)
[2021-04-19] MEDS: AZITHROMYCIN 500MG+NS 250ML IV SCH (09:07)
[2021-04-19] MEDS: AMLODIPINE 5 MG TAB PO SCH (09:08)
[2021-04-19] MEDS: 0.9% NACL 250ML IVPB SCH (09:08)
[2021-04-19] MEDS: LOSARTAN 25 MG TABLET PO SCH (09:08)
[2021-04-19] MEDS: ASPIRIN 81 MG EC TAB PO SCH (09:08)
[2021-04-19] MEDS: FAMOTIDINE 20MG VIAL IV SCH (09:08)
[2021-04-19] MEDS: HEPARIN 5,000 UNIT VIAL SQ SCH ×3 (09:11→21:00)
[2021-04-19] MEDS ORDERED: LORAZEPAM 2 MG/ML 1 ML VIAL IVP PRN (12:00)
[2021-04-19] MEDS ORDERED: FUROSEMIDE 40MG VIAL IV ONE (17:00)
[2021-04-19 17:24] LABS: CREATININE 1.6 mg/dL (0.5-1.5); POTASSIUM 5.1 mmol/L (3.5-5.1)
[2021-04-19] MEDS: ATORVASTATIN 40 MG TABLET PO SCH (21:00)
[2021-04-20] MEDS: INSULIN GLARGINE 100 UNITS/ML 10 ML VIAL SQ SCH ×2 (00:09→22:06)
[2021-04-20] MEDS: INSULIN HUMULIN R 100 UNIT/ML 3ML SQ SCH ×3 (07:30→17:00)
[2021-04-20 07:58] LABS: CREATININE 1.5 mg/dL (0.5-1.5)
[2021-04-20] MEDS: CEFTRIAXONE 1G VIAL IVP SCH (08:00)
[2021-04-20] MEDS: AZITHROMYCIN 500MG+NS 250ML IV SCH (09:00)
[2021-04-20] MEDS: LOSARTAN 25 MG TABLET PO SCH (09:00)
[2021-04-20] MEDS: 0.9% NACL 250ML IVPB SCH (09:00)
[2021-04-20] MEDS: ASPIRIN 81 MG EC TAB PO SCH (09:00)
[2021-04-20] MEDS: AMLODIPINE 5 MG TAB PO SCH (09:00)
[2021-04-20] MEDS: FAMOTIDINE 20MG VIAL IV SCH (09:00)
[2021-04-20] MEDS: HEPARIN 5,000 UNIT VIAL SQ SCH ×3 (09:00→22:06)
[2021-04-20] MEDS: METOLAZONE 2.5 MG TABLET PO SCH (11:16)
[2021-04-20] MEDS: FUROSEMIDE 40MG VIAL IV SCH ×2 (11:16→21:59)
[2021-04-20 16:15] VITALS: BP 113/48
[2021-04-20 20:41] VITALS: BP 126/42
[2021-04-20] MEDS: ATORVASTATIN 40 MG TABLET PO SCH (21:55)
[2021-04-21] VITALS (7 sets, daily range): BP systolic 107–144; BP diastolic 40–58
[2021-04-21 06:06] LABS: % IRON SATURATION 7.2 % (22-44)
[2021-04-21] MEDS: INSULIN HUMULIN R 100 UNIT/ML 3ML SQ SCH ×3 (07:10→17:00)
[2021-04-21] MEDS: CEFTRIAXONE 1G VIAL IVP SCH (08:08)
[2021-04-21] MEDS: 0.9% NACL 250ML IVPB SCH (08:08)
[2021-04-21] MEDS: AZITHROMYCIN 500MG+NS 250ML IV SCH (08:08)
[2021-04-21] MEDS: AMLODIPINE 5 MG TAB PO SCH (08:10)
[2021-04-21] MEDS: ASPIRIN 81 MG EC TAB PO SCH (08:10)
[2021-04-21] MEDS: LOSARTAN 25 MG TABLET PO SCH (08:10)
[2021-04-21] MEDS: FUROSEMIDE 40MG VIAL IV SCH ×2 (08:13→22:14)
[2021-04-21] MEDS: FAMOTIDINE 20MG VIAL IV SCH (08:15)
[2021-04-21] MEDS: HEPARIN 5,000 UNIT VIAL SQ SCH ×3 (08:17→22:15)
[2021-04-21 08:19] LABS: CREATININE 1.8 mg/dL (0.5-1.5)
[2021-04-21] MEDS ORDERED: COMPOUND IV MISC 1 EACH IVSOLN MISC PRN (09:00)
[2021-04-21] MEDS ORDERED: EPOETIN ALFA-EPBX (ESRD) 10,000 UNIT/ML VIAL SQ SCH (09:00)
[2021-04-21] MEDS: METOLAZONE 2.5 MG TABLET PO SCH ×2 (10:07→10:09)
[2021-04-21] MEDS: IRON SUCROSE COMPLEX 100 MG in 0.9%NACL 50ML 50 ML IV SCH (10:09)
[2021-04-21 12:39] LABS: ABG BASE EXCESS -1.5 mmol/L (-2.0-3.0); ABG HCO3 24.9 mmol/L (21.0-28.0); ABG PCO2 48 mmHg (32-45)
[2021-04-21] MEDS: ATORVASTATIN 40 MG TABLET PO SCH (22:14)
[2021-04-21] MEDS: INSULIN GLARGINE 100 UNITS/ML 10 ML VIAL SQ SCH (22:14)
[2021-04-22 03:52] VITALS: BP 138/56
[2021-04-22 04:41] LABS: CREATININE 1.7 mg/dL (0.5-1.5); POTASSIUM 5.1 mmol/L (3.5-5.1)
[2021-04-22] MEDS: INSULIN HUMULIN R 100 UNIT/ML 3ML SQ SCH ×3 (06:17→17:00)
[2021-04-22 08:00] VITALS: BP 134/62
[2021-04-22] MEDS: METOLAZONE 2.5 MG TABLET PO SCH ×2 (09:30→10:11)
[2021-04-22] MEDS ORDERED: METOLAZONE 2.5 MG TABLET PO SCH (09:30)
[2021-04-22] MEDS: FAMOTIDINE 20MG VIAL IV SCH (09:59)
[2021-04-22] MEDS: AMLODIPINE 5 MG TAB PO SCH (09:59)
[2021-04-22] MEDS: AZITHROMYCIN 500MG+NS 250ML IV SCH (09:59)
[2021-04-22] MEDS: ASPIRIN 81 MG EC TAB PO SCH (09:59)
[2021-04-22] MEDS: CEFTRIAXONE 1G VIAL IVP SCH (10:00)
[2021-04-22] MEDS: FUROSEMIDE 40MG VIAL IV SCH ×2 (10:10→21:28)
[2021-04-22] MEDS: 0.9% NACL 250ML IVPB SCH (10:12)
[2021-04-22] MEDS: LOSARTAN 25 MG TABLET PO SCH (10:12)
[2021-04-22] MEDS: HEPARIN 5,000 UNIT VIAL SQ SCH ×3 (10:35→21:30)
[2021-04-22 12:00] VITALS: BP 120/47
[2021-04-22] MEDS: IRON SUCROSE COMPLEX 100 MG in 0.9%NACL 50ML 50 ML IV SCH (14:10)
[2021-04-22] MEDS ORDERED: IRON SUCROSE COMPLEX 300 MG in 0.9%NACL 50ML 50 ML IV SCH (15:00)
[2021-04-22] MEDS ORDERED: EPOETIN ALFA-EPBX (NON-ESRD) 10,000 UNIT/ML VIAL SQ SCH (15:00)
[2021-04-22 15:21] LABS: BASOPHILS % (AUTO) 0.4 % (0.0-5.0); EOSINOPHILS % (AUTO) 3.7 % (0.0-8.0); HEMATOCRIT 32.3 % (36-48); LYMPHOCYTES % (AUTO) 17.4 % (21.0-51.0); MEAN CORPUSCULAR HEMOGLOBIN 27.2 pg (27.0-33.0); MEAN CORPUSCULAR VOLUME 90.7 fL (79-99); MONOCYTES % (AUTO) 7.4 % (3.0-13.0); NEUTROPHILS % (AUTO) 70.4 % (40.0-77.0); PLATELET COUNT (AUTO) 318 K/uL (130-400); RED BLOOD CELL COUNT(AUTO) 3.56 MIL/uL (4.00-5.50); RED CELL DISTRIBUTION WIDTH 14.3 % (11.0-15.5); WHITE BLOOD COUNT (AUTO) 11.3 K/uL (4.8-10.8)
[2021-04-22 15:40] LABS: B-TYPE NATRIURETIC PEPTIDE 1510 pg/mL (0-100)
[2021-04-22 15:44] LABS: % IRON SATURATION 13.5 % (22-44)
[2021-04-22 16:00] VITALS: BP 128/47
[2021-04-22 16:14] LABS: THYROID STIMULATING HORMONE 3.8 uIU/mL (0.36-3.74)
[2021-04-22 19:45] VITALS: BP 128/63
[2021-04-22] MEDS: INSULIN GLARGINE 100 UNITS/ML 10 ML VIAL SQ SCH (21:00)
[2021-04-22] MEDS: ATORVASTATIN 40 MG TABLET PO SCH (21:28)
[2021-04-23] VITALS (7 sets, daily range): BP systolic 121–149; BP diastolic 38–96
[2021-04-23] MEDS: INSULIN HUMULIN R 100 UNIT/ML 3ML SQ SCH ×3 (06:39→16:57)
[2021-04-23] MEDS ORDERED: LEVOTHYROXINE 100 MCG TABLET PO SCH (08:00)
[2021-04-23 08:24] LABS: BASOPHILS % (AUTO) 0.6 % (0.0-5.0); EOSINOPHILS % (AUTO) 3.6 % (0.0-8.0); HEMATOCRIT 30.6 % (36-48); LYMPHOCYTES % (AUTO) 18.4 % (21.0-51.0); MEAN CORPUSCULAR HEMOGLOBIN 26.9 pg (27.0-33.0); MEAN CORPUSCULAR HGB CONC 30.1 g/dL (32.0-36.0); MEAN CORPUSCULAR VOLUME 89.5 fL (79-99); MONOCYTES % (AUTO) 6.8 % (3.0-13.0); NEUTROPHILS % (AUTO) 69.2 % (40.0-77.0); PLATELET COUNT (AUTO) 305 K/uL (130-400); RED BLOOD CELL COUNT(AUTO) 3.42 MIL/uL (4.00-5.50); RED CELL DISTRIBUTION WIDTH 14.3 % (11.0-15.5); WHITE BLOOD COUNT (AUTO) 8.7 K/uL (4.8-10.8)
[2021-04-23 08:36] LABS: CREATININE 1.7 mg/dL (0.5-1.5); POTASSIUM 4.8 mmol/L (3.5-5.1)
[2021-04-23 08:47] LABS: MAGNESIUM 2.2 mg/dL (1.80-2.40)
[2021-04-23] MEDS: ENOXAPARIN SODIUM 40 MG/0.4 ML SYRINGE SQ SCH (09:01)
[2021-04-23] MEDS: AZITHROMYCIN 500MG+NS 250ML IV SCH (09:01)
[2021-04-23] MEDS: IRON SUCROSE COMPLEX 100 MG in 0.9%NACL 50ML 50 ML IV SCH (09:01)
[2021-04-23] MEDS: CEFTRIAXONE 1G VIAL IVP SCH (09:01)
[2021-04-23] MEDS: 0.9% NACL 250ML IVPB SCH (09:02)
[2021-04-23] MEDS: FUROSEMIDE 40MG VIAL IV SCH (09:03)
[2021-04-23] MEDS: AMLODIPINE 5 MG TAB PO SCH (09:03)
[2021-04-23] MEDS: FAMOTIDINE 20MG VIAL IV SCH (09:03)
[2021-04-23] MEDS: LOSARTAN 25 MG TABLET PO SCH (09:03)
[2021-04-23] MEDS: METOLAZONE 2.5 MG TABLET PO SCH ×2 (09:03→09:04)
[2021-04-23] MEDS: ASPIRIN 81 MG EC TAB PO SCH (09:04)
[2021-04-23 09:13] LABS: % IRON SATURATION 98.6 % (22-44)
[2021-04-23 09:16] LABS: B-TYPE NATRIURETIC PEPTIDE 1630 pg/mL (0-100)
[2021-04-23] MEDS: ALBUTEROL 0.083% 2.5 MG/3 ML INH IH SCH ×3 (11:07→23:55)
[2021-04-23] MEDS: BUDESONIDE 0.5 MG/2 ML INH IH SCH (19:04)
[2021-04-23] MEDS: CARVEDILOL 3.125 MG TABLET PO SCH (20:43)
[2021-04-23] MEDS: ATORVASTATIN 40 MG TABLET PO SCH (20:43)
[2021-04-23] MEDS: INSULIN GLARGINE 100 UNITS/ML 10 ML VIAL SQ SCH (20:46)
[2021-04-24 03:47] VITALS: BP 129/50
[2021-04-24] MEDS: BUDESONIDE 0.5 MG/2 ML INH IH SCH ×2 (06:00→18:09)
[2021-04-24 06:36] LABS: MAGNESIUM 2.2 mg/dL (1.80-2.40); POTASSIUM 4.6 mmol/L (3.5-5.1)
[2021-04-24] MEDS: ALBUTEROL 0.083% 2.5 MG/3 ML INH IH SCH ×4 (06:40→23:22)
[2021-04-24] MEDS: INSULIN HUMULIN R 100 UNIT/ML 3ML SQ SCH ×3 (06:47→17:41)
[2021-04-24 07:36] VITALS: BP 127/39
[2021-04-24] MEDS: CEFTRIAXONE 1G VIAL IVP SCH (07:57)
[2021-04-24] MEDS ORDERED: TORSEMIDE 20 MG TAB PO SCH (09:00)
[2021-04-24] MEDS: METOLAZONE 2.5 MG TABLET PO SCH ×2 (09:00→12:54)
[2021-04-24] MEDS: BISACODYL 5 MG TABLET.DR PO SCH (10:18)
[2021-04-24] MEDS: AMLODIPINE 5 MG TAB PO SCH (10:18)
[2021-04-24] MEDS: LOSARTAN 25 MG TABLET PO SCH (10:18)
[2021-04-24] MEDS: CARVEDILOL 3.125 MG TABLET PO SCH ×2 (10:19→21:16)
[2021-04-24] MEDS: ASPIRIN 81 MG EC TAB PO SCH (10:19)
[2021-04-24] MEDS: ENOXAPARIN SODIUM 40 MG/0.4 ML SYRINGE SQ SCH (10:20)
[2021-04-24] MEDS: FAMOTIDINE 20MG VIAL IV SCH (10:25)
[2021-04-24] MEDS: 0.9% NACL 250ML IVPB SCH (10:25)
[2021-04-24] MEDS: AZITHROMYCIN 500MG+NS 250ML IV SCH (10:25)
[2021-04-24 11:20] VITALS: BP 137/52
[2021-04-24] MEDS: IRON SUCROSE COMPLEX 100 MG in 0.9%NACL 50ML 50 ML IV SCH (12:13)
[2021-04-24 16:00] VITALS: BP 122/37
[2021-04-24 19:09] VITALS: BP 133/49
[2021-04-24] MEDS ORDERED: EPOETIN ALFA-EPBX (ESRD) 10,000 UNIT/ML VIAL SQ SCH (20:00)
[2021-04-24] MEDS: ATORVASTATIN 40 MG TABLET PO SCH (21:15)
[2021-04-24] MEDS: INSULIN GLARGINE 100 UNITS/ML 10 ML VIAL SQ SCH (21:17)
[2021-04-24 23:05] VITALS: BP 135/54
[2021-04-25 03:13] VITALS: BP 114/49
[2021-04-25 04:29] LABS: CREATININE 2.1 mg/dL (0.5-1.5); MAGNESIUM 2.1 mg/dL (1.80-2.40); POTASSIUM 4.3 mmol/L (3.5-5.1)
[2021-04-25] MEDS: INSULIN HUMULIN R 100 UNIT/ML 3ML SQ SCH ×3 (06:06→17:24)
[2021-04-25] MEDS: BUDESONIDE 0.5 MG/2 ML INH IH SCH ×2 (06:32→18:14)
[2021-04-25] MEDS: ALBUTEROL 0.083% 2.5 MG/3 ML INH IH SCH ×4 (06:32→23:07)
[2021-04-25 08:00] VITALS: BP 134/55
[2021-04-25] MEDS: CEFTRIAXONE 1G VIAL IVP SCH (08:33)
[2021-04-25] MEDS: FAMOTIDINE 20MG VIAL IV SCH (08:34)
[2021-04-25] MEDS: AZITHROMYCIN 500MG+NS 250ML IV SCH (08:34)
[2021-04-25] MEDS: TORSEMIDE 20 MG TAB PO SCH (08:35)
[2021-04-25] MEDS: LOSARTAN 25 MG TABLET PO SCH (08:36)
[2021-04-25] MEDS: BISACODYL 5 MG TABLET.DR PO SCH (08:36)
[2021-04-25] MEDS: CARVEDILOL 3.125 MG TABLET PO SCH ×2 (08:36→21:43)
[2021-04-25] MEDS: ASPIRIN 81 MG EC TAB PO SCH (08:36)
[2021-04-25] MEDS: AMLODIPINE 5 MG TAB PO SCH (08:36)
[2021-04-25] MEDS: ENOXAPARIN SODIUM 40 MG/0.4 ML SYRINGE SQ SCH (08:39)
[2021-04-25] MEDS: 0.9% NACL 250ML IVPB SCH (08:41)
[2021-04-25] MEDS: IRON SUCROSE COMPLEX 100 MG in 0.9%NACL 50ML 50 ML IV SCH (09:00)
[2021-04-25] MEDS: METOLAZONE 2.5 MG TABLET PO SCH ×2 (09:00→12:30)
[2021-04-25 12:04] VITALS: BP 139/48
[2021-04-25 15:46] VITALS: BP 137/57
[2021-04-25 19:05] VITALS: BP 147/47
[2021-04-25] MEDS: ATORVASTATIN 40 MG TABLET PO SCH (21:39)
[2021-04-25] MEDS: INSULIN GLARGINE 100 UNITS/ML 10 ML VIAL SQ SCH (21:49)
[2021-04-26] VITALS: BP 144/55
[2021-04-26 03:32] VITALS: BP 145/63
[2021-04-26 04:18] LABS: BASOPHILS % (AUTO) 0.5 % (0.0-5.0); EOSINOPHILS % (AUTO) 3.7 % (0.0-8.0); HEMATOCRIT 28.3 % (36-48); LYMPHOCYTES % (AUTO) 21.3 % (21.0-51.0); MEAN CORPUSCULAR HEMOGLOBIN 26.6 pg (27.0-33.0); MEAN CORPUSCULAR HGB CONC 29.7 g/dL (32.0-36.0); MEAN CORPUSCULAR VOLUME 89.6 fL (79-99); MONOCYTES % (AUTO) 8.1 % (3.0-13.0); NEUTROPHILS % (AUTO) 65.1 % (40.0-77.0); NUCLEATED RED BLOOD CELLS 0.2 % (0.0-0.19); PLATELET COUNT (AUTO) 288 K/uL (130-400); RED BLOOD CELL COUNT(AUTO) 3.16 MIL/uL (4.00-5.50); RED CELL DISTRIBUTION WIDTH 14.6 % (11.0-15.5)
[2021-04-26 04:40] LABS: CREATININE 2.2 mg/dL (0.5-1.5); POTASSIUM 4.6 mmol/L (3.5-5.1)
[2021-04-26] MEDS: INSULIN HUMULIN R 100 UNIT/ML 3ML SQ SCH ×3 (06:21→17:00)
[2021-04-26] MEDS: ALBUTEROL 0.083% 2.5 MG/3 ML INH IH SCH ×4 (06:51→23:06)
[2021-04-26] MEDS: BUDESONIDE 0.5 MG/2 ML INH IH SCH ×2 (06:52→18:26)
[2021-04-26 08:02] VITALS: BP 150/63
[2021-04-26] MEDS: FAMOTIDINE 20MG VIAL IV SCH (08:04)
[2021-04-26] MEDS: AZITHROMYCIN 500MG+NS 250ML IV SCH (08:04)
[2021-04-26] MEDS: CEFTRIAXONE 1G VIAL IVP SCH (08:04)
[2021-04-26] MEDS: METOLAZONE 2.5 MG TABLET PO SCH ×2 (08:05→12:30)
[2021-04-26] MEDS: ENOXAPARIN SODIUM 40 MG/0.4 ML SYRINGE SQ SCH (08:05)
[2021-04-26] MEDS: TORSEMIDE 20 MG TAB PO SCH (08:09)
[2021-04-26] MEDS: AMLODIPINE 5 MG TAB PO SCH (08:10)
[2021-04-26] MEDS: BISACODYL 5 MG TABLET.DR PO SCH (08:10)
[2021-04-26] MEDS: ASPIRIN 81 MG EC TAB PO SCH (08:10)
[2021-04-26] MEDS: LOSARTAN 25 MG TABLET PO SCH (08:10)
[2021-04-26] MEDS: CARVEDILOL 3.125 MG TABLET PO SCH ×2 (08:10→21:02)
[2021-04-26] MEDS: 0.9% NACL 250ML IVPB SCH (09:00)
[2021-04-26 11:48] VITALS: BP 127/45
[2021-04-26] MEDS: IRON SUCROSE COMPLEX 100 MG in 0.9%NACL 50ML 50 ML IV SCH (14:31)
[2021-04-26 16:00] VITALS: BP 130/75
[2021-04-26 20:00] VITALS: BP 140/40
[2021-04-26] MEDS: ATORVASTATIN 40 MG TABLET PO SCH (21:02)
[2021-04-26] MEDS: INSULIN GLARGINE 100 UNITS/ML 10 ML VIAL SQ SCH (21:05)
[2021-04-27] VITALS (12 sets, daily range): BP systolic 122–155; BP diastolic 44–63
[2021-04-27 03:42] LABS: BASOPHILS % (AUTO) 0.4 % (0.0-5.0); EOSINOPHILS % (AUTO) 2.7 % (0.0-8.0); HEMATOCRIT 27.2 % (36-48); LYMPHOCYTES % (AUTO) 15.9 % (21.0-51.0); MEAN CORPUSCULAR HEMOGLOBIN 26.9 pg (27.0-33.0); MEAN CORPUSCULAR HGB CONC 30.5 g/dL (32.0-36.0); MONOCYTES % (AUTO) 7.8 % (3.0-13.0); NEUTROPHILS % (AUTO) 72.3 % (40.0-77.0); PLATELET COUNT (AUTO) 261 K/uL (130-400); RED BLOOD CELL COUNT(AUTO) 3.09 MIL/uL (4.00-5.50); RED CELL DISTRIBUTION WIDTH 15.1 % (11.0-15.5); WHITE BLOOD COUNT (AUTO) 11.6 K/uL (4.8-10.8)
[2021-04-27 04:05] LABS: CREATININE 2.2 mg/dL (0.5-1.5); POTASSIUM 4.7 mmol/L (3.5-5.1)
[2021-04-27] MEDS: BUDESONIDE 0.5 MG/2 ML INH IH SCH ×2 (06:54→18:29)
[2021-04-27] MEDS: ALBUTEROL 0.083% 2.5 MG/3 ML INH IH SCH ×4 (06:54→23:05)
[2021-04-27] MEDS: INSULIN HUMULIN R 100 UNIT/ML 3ML SQ SCH ×3 (07:30→16:20)
[2021-04-27] MEDS: CEFTRIAXONE 1G VIAL IVP SCH (08:00)
[2021-04-27] MEDS: METOLAZONE 2.5 MG TABLET PO SCH ×2 (08:32)
[2021-04-27] MEDS ORDERED: LIDOCAINE HCL 400MG/20ML VIAL ONE (08:52)
[2021-04-27] MEDS ORDERED: SODIUM BICARB 50MEQ 50ML VIAL 50 ML ONE (08:52)
[2021-04-27] MEDS: FAMOTIDINE 20MG VIAL IV SCH (09:00)
[2021-04-27] MEDS: IRON SUCROSE COMPLEX 100 MG in 0.9%NACL 50ML 50 ML IV SCH (09:00)
[2021-04-27] MEDS: BISACODYL 5 MG TABLET.DR PO SCH (09:00)
[2021-04-27] MEDS: ENOXAPARIN SODIUM 40 MG/0.4 ML SYRINGE SQ SCH (09:00)
[2021-04-27] MEDS: AMLODIPINE 5 MG TAB PO SCH (09:00)
[2021-04-27] MEDS: ASPIRIN 81 MG EC TAB PO SCH (09:00)
[2021-04-27] MEDS: LOSARTAN 25 MG TABLET PO SCH (09:00)
[2021-04-27] MEDS: 0.9% NACL 250ML IVPB SCH (09:00)
[2021-04-27] MEDS: CARVEDILOL 3.125 MG TABLET PO SCH ×2 (09:00→21:12)
[2021-04-27] MEDS: AZITHROMYCIN 500MG+NS 250ML IV SCH (09:00)
[2021-04-27] MEDS ORDERED: FENTANYL CITRATE PF 50 MCG/1 ML 2ML VIAL ONE (09:48)
[2021-04-27] MEDS ORDERED: METOLAZONE 2.5 MG TABLET PO SCH (10:30)
[2021-04-27] MEDS ORDERED: FUROSEMIDE 40MG VIAL IV SCH ×2 (10:30→17:30)
[2021-04-27] MEDS: ATORVASTATIN 40 MG TABLET PO SCH (21:12)
[2021-04-27] MEDS: INSULIN GLARGINE 100 UNITS/ML 10 ML VIAL SQ SCH (21:16)
[2021-04-28] VITALS: BP 133/64
[2021-04-28 04:00] VITALS: BP 114/44
[2021-04-28 04:45] LABS: CREATININE 2.1 mg/dL (0.5-1.5); MAGNESIUM 2.4 mg/dL (1.80-2.40); POTASSIUM 4.6 mmol/L (3.5-5.1)
[2021-04-28] MEDS: INSULIN HUMULIN R 100 UNIT/ML 3ML SQ SCH ×3 (06:30→17:00)
[2021-04-28] MEDS: BUDESONIDE 0.5 MG/2 ML INH IH SCH ×2 (07:15→18:52)
[2021-04-28] MEDS: ALBUTEROL 0.083% 2.5 MG/3 ML INH IH SCH ×4 (07:15→23:13)
[2021-04-28 08:25] VITALS: BP 139/59
[2021-04-28] MEDS: 0.9% NACL 250ML IVPB SCH (09:11)
[2021-04-28] MEDS: CEFTRIAXONE 1G VIAL IVP SCH (09:11)
[2021-04-28] MEDS: IRON SUCROSE COMPLEX 100 MG in 0.9%NACL 50ML 50 ML IV SCH (09:11)
[2021-04-28] MEDS: FAMOTIDINE 20MG VIAL IV SCH (09:11)
[2021-04-28] MEDS: AZITHROMYCIN 500MG+NS 250ML IV SCH (09:11)
[2021-04-28] MEDS: CARVEDILOL 3.125 MG TABLET PO SCH ×2 (09:12→20:48)
[2021-04-28] MEDS: AMLODIPINE 5 MG TAB PO SCH (09:12)
[2021-04-28] MEDS: ASPIRIN 81 MG EC TAB PO SCH (09:12)
[2021-04-28] MEDS: LOSARTAN 25 MG TABLET PO SCH (09:13)
[2021-04-28] MEDS: BISACODYL 5 MG TABLET.DR PO SCH (09:13)
[2021-04-28] MEDS: ENOXAPARIN SODIUM 40 MG/0.4 ML SYRINGE SQ SCH (09:14)
[2021-04-28] MEDS: METOLAZONE 2.5 MG TABLET PO SCH ×2 (09:15→12:30)
[2021-04-28] MEDS ORDERED: FUROSEMIDE 40MG VIAL IV SCH (09:30)
[2021-04-28] MEDS ORDERED: METOLAZONE 2.5 MG TABLET PO SCH ×2 (09:30→16:00)
[2021-04-28 11:13] VITALS: BP 126/85
[2021-04-28] MEDS ORDERED: FUROSEMIDE 40MG VIAL IV ONE (16:00)
[2021-04-28 16:21] VITALS: BP 123/80
[2021-04-28 20:00] VITALS: BP 135/55
[2021-04-28] MEDS: ATORVASTATIN 40 MG TABLET PO SCH (20:48)
[2021-04-28] MEDS: INSULIN GLARGINE 100 UNITS/ML 10 ML VIAL SQ SCH (20:49)
[2021-04-29] VITALS: BP 140/50
[2021-04-29 04:00] VITALS: BP 125/40
[2021-04-29] MEDS: ALBUTEROL 0.083% 2.5 MG/3 ML INH IH SCH ×3 (06:19→18:32)
[2021-04-29] MEDS: BUDESONIDE 0.5 MG/2 ML INH IH SCH ×2 (06:19→18:31)
[2021-04-29] MEDS: INSULIN HUMULIN R 100 UNIT/ML 3ML SQ SCH ×3 (06:48→17:33)
[2021-04-29] MEDS: ASPIRIN 81 MG EC TAB PO SCH (08:35)
[2021-04-29] MEDS: BISACODYL 5 MG TABLET.DR PO SCH (08:35)
[2021-04-29] MEDS: LOSARTAN 25 MG TABLET PO SCH (08:35)
[2021-04-29] MEDS: CARVEDILOL 3.125 MG TABLET PO SCH ×2 (08:35→20:29)
[2021-04-29] MEDS: AMLODIPINE 5 MG TAB PO SCH (08:35)
[2021-04-29] MEDS: CEFTRIAXONE 1G VIAL IVP SCH (08:35)
[2021-04-29] MEDS: AZITHROMYCIN 500MG+NS 250ML IV SCH (08:36)
[2021-04-29] MEDS: FAMOTIDINE 20MG VIAL IV SCH (08:36)
[2021-04-29] MEDS: ENOXAPARIN SODIUM 40 MG/0.4 ML SYRINGE SQ SCH (08:37)
[2021-04-29] MEDS: METOLAZONE 2.5 MG TABLET PO SCH ×2 (08:40→11:23)
[2021-04-29 08:51] LABS: CREATININE 2.1 mg/dL (0.5-1.5); POTASSIUM 4.2 mmol/L (3.5-5.1)
[2021-04-29] MEDS: 0.9% NACL 250ML IVPB SCH (09:00)
[2021-04-29 09:49] VITALS: BP 117/63
[2021-04-29] MEDS ORDERED: FUROSEMIDE 40MG VIAL IV SCH (10:30)
[2021-04-29 12:54] VITALS: BP 148/59
[2021-04-29] MEDS: IRON SUCROSE COMPLEX 100 MG in 0.9%NACL 50ML 50 ML IV SCH (13:18)
[2021-04-29 16:00] VITALS: BP 130/45
[2021-04-29 20:00] VITALS: BP 147/48
[2021-04-29] MEDS: ATORVASTATIN 40 MG TABLET PO SCH (20:28)
[2021-04-29] MEDS: INSULIN GLARGINE 100 UNITS/ML 10 ML VIAL SQ SCH (20:30)
[2021-04-30] VITALS: BP 135/52
[2021-04-30] MEDS: ALBUTEROL 0.083% 2.5 MG/3 ML INH IH SCH ×5 (00:34→23:06)
[2021-04-30 04:00] VITALS: BP 142/42
[2021-04-30 05:28] LABS: ALBUMIN 3.2 g/dL (3.5-5.0); BILIRUBIN,TOTAL 0.3 mg/dL (0.2-1.0); CREATININE 2.3 mg/dL (0.5-1.5); POTASSIUM 4.4 mmol/L (3.5-5.1); TOTAL PROTEIN, SERUM 6.6 g/dL (6.0-8.3)
[2021-04-30] MEDS: BUDESONIDE 0.5 MG/2 ML INH IH SCH ×2 (06:01→18:30)
[2021-04-30] MEDS: INSULIN HUMULIN R 100 UNIT/ML 3ML SQ SCH ×2 (06:51→11:30)
[2021-04-30 08:00] VITALS: BP 130/45
[2021-04-30] MEDS: 0.9% NACL 250ML IVPB SCH (09:00)
[2021-04-30] MEDS: CEFTRIAXONE 1G VIAL IVP SCH (09:50)
[2021-04-30] MEDS: AMLODIPINE 5 MG TAB PO SCH (09:51)
[2021-04-30] MEDS: AZITHROMYCIN 500MG+NS 250ML IV SCH ×2 (09:51→10:19)
[2021-04-30] MEDS: LOSARTAN 25 MG TABLET PO SCH (09:51)
[2021-04-30] MEDS: FAMOTIDINE 20MG VIAL IV SCH (09:51)
[2021-04-30] MEDS: CARVEDILOL 3.125 MG TABLET PO SCH ×2 (09:52→20:44)
[2021-04-30] MEDS: BISACODYL 5 MG TABLET.DR PO SCH (09:52)
[2021-04-30] MEDS: ASPIRIN 81 MG EC TAB PO SCH (09:53)
[2021-04-30] MEDS: ENOXAPARIN SODIUM 40 MG/0.4 ML SYRINGE SQ SCH (09:55)
[2021-04-30 12:10] VITALS: BP 144/73
[2021-04-30] MEDS: IRON SUCROSE COMPLEX 100 MG in 0.9%NACL 50ML 50 ML IV SCH (13:34)
[2021-04-30 18:41] VITALS: BP 130/65
[2021-04-30 20:00] VITALS: BP 128/40
[2021-04-30] MEDS: ATORVASTATIN 40 MG TABLET PO SCH (20:44)
[2021-04-30] MEDS: INSULIN GLARGINE 100 UNITS/ML 10 ML VIAL SQ SCH (20:46)
[2021-05-01] VITALS: BP 128/40
[2021-05-01 04:00] VITALS: BP 126/38
[2021-05-01 04:59] LABS: BASOPHILS % (AUTO) 0.6 % (0.0-5.0); EOSINOPHILS % (AUTO) 3.6 % (0.0-8.0); HEMATOCRIT 28.4 % (36-48); LYMPHOCYTES % (AUTO) 18.6 % (21.0-51.0); MEAN CORPUSCULAR HEMOGLOBIN 27.6 pg (27.0-33.0); MONOCYTES % (AUTO) 8.9 % (3.0-13.0); NEUTROPHILS % (AUTO) 67.9 % (40.0-77.0); PLATELET COUNT (AUTO) 238 K/uL (130-400); RED BLOOD CELL COUNT(AUTO) 3.19 MIL/uL (4.00-5.50); RED CELL DISTRIBUTION WIDTH 16.1 % (11.0-15.5); WHITE BLOOD COUNT (AUTO) 9.3 K/uL (4.8-10.8)
[2021-05-01 05:17] LABS: B-TYPE NATRIURETIC PEPTIDE 1100 pg/mL (0-100)
[2021-05-01 05:21] LABS: ALBUMIN 3.1 g/dL (3.5-5.0); BILIRUBIN,TOTAL 0.4 mg/dL (0.2-1.0); CREATININE 2.2 mg/dL (0.5-1.5); POTASSIUM 4.4 mmol/L (3.5-5.1); TOTAL PROTEIN, SERUM 6.6 g/dL (6.0-8.3)
[2021-05-01] MEDS: BUDESONIDE 0.5 MG/2 ML INH IH SCH ×2 (06:31→18:03)
[2021-05-01] MEDS: ALBUTEROL 0.083% 2.5 MG/3 ML INH IH SCH ×4 (06:31→23:46)
[2021-05-01] MEDS: INSULIN HUMULIN R 100 UNIT/ML 3ML SQ SCH ×3 (06:37→16:51)
[2021-05-01 08:00] VITALS: BP 132/46
[2021-05-01] MEDS: 0.9% NACL 250ML IVPB SCH (09:00)
[2021-05-01] MEDS: FAMOTIDINE 20MG VIAL IV SCH (10:04)
[2021-05-01] MEDS: ASPIRIN 81 MG EC TAB PO SCH (10:05)
[2021-05-01] MEDS: CARVEDILOL 3.125 MG TABLET PO SCH ×2 (10:06→21:31)
[2021-05-01] MEDS: AZITHROMYCIN 500MG+NS 250ML IV SCH ×2 (10:07→10:10)
[2021-05-01] MEDS: AMLODIPINE 5 MG TAB PO SCH (10:07)
[2021-05-01] MEDS: ENOXAPARIN SODIUM 40 MG/0.4 ML SYRINGE SQ SCH (10:08)
[2021-05-01] MEDS: LOSARTAN 25 MG TABLET PO SCH (10:08)
[2021-05-01] MEDS: BISACODYL 5 MG TABLET.DR PO SCH (10:09)
[2021-05-01] MEDS: IRON SUCROSE COMPLEX 100 MG in 0.9%NACL 50ML 50 ML IV SCH (10:40)
[2021-05-01] MEDS: CEFTRIAXONE 1G VIAL IVP SCH (10:41)
[2021-05-01 11:36] VITALS: BP 143/57
[2021-05-01] MEDS ORDERED: AEC81 PO (12:08)
[2021-05-01] MEDS ORDERED: CARV6.25 PO (12:08)
[2021-05-01] MEDS ORDERED: ATOR40TA69 PO (12:08)
[2021-05-01] MEDS ORDERED: METO5TAB7 PO (12:10)
[2021-05-01 16:00] VITALS: BP 121/58
[2021-05-01 20:00] VITALS: BP 150/57
[2021-05-01] MEDS: ATORVASTATIN 40 MG TABLET PO SCH (21:30)
[2021-05-01] MEDS: INSULIN GLARGINE 100 UNITS/ML 10 ML VIAL SQ SCH (21:32)
[2021-05-02] VITALS: BP 122/78
[2021-05-02 03:41] LABS: BASOPHILS % (AUTO) 0.5 % (0.0-5.0); EOSINOPHILS % (AUTO) 4.2 % (0.0-8.0); HEMATOCRIT 29.6 % (36-48); LYMPHOCYTES % (AUTO) 21.2 % (21.0-51.0); MEAN CORPUSCULAR HEMOGLOBIN 27.6 pg (27.0-33.0); MEAN CORPUSCULAR HGB CONC 30.7 g/dL (32.0-36.0); MEAN CORPUSCULAR VOLUME 89.7 fL (79-99); MONOCYTES % (AUTO) 9.2 % (3.0-13.0); NEUTROPHILS % (AUTO) 64.4 % (40.0-77.0); PLATELET COUNT (AUTO) 227 K/uL (130-400); RED CELL DISTRIBUTION WIDTH 16.3 % (11.0-15.5); WHITE BLOOD COUNT (AUTO) 9.6 K/uL (4.8-10.8)
[2021-05-02 03:58] LABS: CREATININE 2.3 mg/dL (0.5-1.5); POTASSIUM 4.6 mmol/L (3.5-5.1)
[2021-05-02 04:00] VITALS: BP 132/52
[2021-05-02 04:06] LABS: B-TYPE NATRIURETIC PEPTIDE 1100 pg/mL (0-100)
[2021-05-02] MEDS: ALBUTEROL 0.083% 2.5 MG/3 ML INH IH SCH ×2 (06:09→11:12)
[2021-05-02] MEDS: BUDESONIDE 0.5 MG/2 ML INH IH SCH (06:09)
[2021-05-02] MEDS: INSULIN HUMULIN R 100 UNIT/ML 3ML SQ SCH ×2 (06:46→10:45)
[2021-05-02] MEDS: CEFTRIAXONE 1G VIAL IVP SCH (08:00)
[2021-05-02 08:27] VITALS: BP 146/51
[2021-05-02] MEDS ORDERED: METOLAZONE 2.5 MG TABLET PO SCH (09:01)
[2021-05-02] MEDS ORDERED: FUROSEMIDE 40MG VIAL IV SCH (09:02)
[2021-05-02] MEDS: LOSARTAN 25 MG TABLET PO SCH (10:29)
[2021-05-02] MEDS: AMLODIPINE 5 MG TAB PO SCH (10:29)
[2021-05-02] MEDS: ASPIRIN 81 MG EC TAB PO SCH (10:29)
[2021-05-02] MEDS: BISACODYL 5 MG TABLET.DR PO SCH (10:29)
[2021-05-02] MEDS: ENOXAPARIN SODIUM 40 MG/0.4 ML SYRINGE SQ SCH (10:30)
[2021-05-02] MEDS: CARVEDILOL 3.125 MG TABLET PO SCH (10:31)
[2021-05-02] MEDS: 0.9% NACL 250ML IVPB SCH (10:32)
[2021-05-02] MEDS: FAMOTIDINE 20MG VIAL IV SCH (10:32)
[2021-05-02] MEDS: IRON SUCROSE COMPLEX 100 MG in 0.9%NACL 50ML 50 ML IV SCH (10:32)
[2021-05-02 11:28] VITALS: BP 133/39
== END 2021-05-02 14:20 | disposition home or self-care (01) | DRG 280 ==
LOC: EDH 05:57 → EDHIP 06:49 → 4CH 04-20 15:48
PROVIDERS: ADMIT Internal Medicine; ATTEND Internal Medicine
PROC: 5A09357 Assistance with Respiratory Ventilation, Less than 24 Consecutive Hours, Continuous Positive Airway Pressure (ICD-10-PCS; 2021-04-18)
PROC: 5A09357 Assistance with Respiratory Ventilation, Less than 24 Consecutive Hours, Continuous Positive Airway Pressure (ICD-10-PCS; 2021-04-19)
PROC: 5A09357 Assistance with Respiratory Ventilation, Less than 24 Consecutive Hours, Continuous Positive Airway Pressure (ICD-10-PCS; 2021-04-20)
PROC: 5A09357 Assistance with Respiratory Ventilation, Less than 24 Consecutive Hours, Continuous Positive Airway Pressure (ICD-10-PCS; 2021-04-21)
PROC: 5A09357 Assistance with Respiratory Ventilation, Less than 24 Consecutive Hours, Continuous Positive Airway Pressure (ICD-10-PCS; 2021-04-22)
PROC: 5A09357 Assistance with Respiratory Ventilation, Less than 24 Consecutive Hours, Continuous Positive Airway Pressure (ICD-10-PCS; 2021-04-26)
PROC: 4A023N6 Measurement of Cardiac Sampling and Pressure, Right Heart, Percutaneous Approach (ICD-10-PCS; principal; 2021-04-27)
DX: I13.0 Hypertensive heart and chronic kidney disease with heart failure and stage 1 through stage 4 chronic kidney disease, or unspecified chronic kidney disease (principal); J96.01 Acute respiratory failure with hypoxia; I21.A1 Myocardial infarction type 2; I50.43 Acute on chronic combined systolic (congestive) and diastolic (congestive) heart failure; N17.9 Acute kidney failure, unspecified; I42.9 Cardiomyopathy, unspecified; E66.01 Morbid (severe) obesity due to excess calories; D72.829 Elevated white blood cell count, unspecified; E78.5 Hyperlipidemia, unspecified; I25.10 Atherosclerotic heart disease of native coronary artery without angina pectoris; J44.9 Chronic obstructive pulmonary disease, unspecified; Z20.822 Contact with and (suspected) exposure to COVID-19; E78.00 Pure hypercholesterolemia, unspecified; E11.22 Type 2 diabetes mellitus with diabetic chronic kidney disease; I27.20 Pulmonary hypertension, unspecified; N18.32 Chronic kidney disease, stage 3b; D63.1 Anemia in chronic kidney disease; D50.0 Iron deficiency anemia secondary to blood loss (chronic); M19.90 Unspecified osteoarthritis, unspecified site; Z68.33 Body mass index [BMI] 33.0-33.9, adult; E03.9 Hypothyroidism, unspecified; G47.33 Obstructive sleep apnea (adult) (pediatric); Z96.651 Presence of right artificial knee joint; R32 Unspecified urinary incontinence; Z91.041 Radiographic dye allergy status; Z79.899 Other long term (current) drug therapy; Z95.810 Presence of automatic (implantable) cardiac defibrillator; Z90.49 Acquired absence of other specified parts of digestive tract; Z83.3 Family history of diabetes mellitus; Z82.5 Family history of asthma and other chronic lower respiratory diseases; Z82.49 Family history of ischemic heart disease and other diseases of the circulatory system; Z82.0 Family history of epilepsy and other diseases of the nervous system
CPT/HCPCS: 36415; 36600; 71045; 71046; 80048; 80053; 81001; 82435; 82550; 82607; 82728; 82746; 82803; 82947; 82948; 83540; 83550; 83605; 83690; 83735; 83874; 83880; 84132; 84145; 84295; 84443; 84484; 85018; 85025; 85045; 85378; 85610; 86738; 87040; 87088; 87449; 87635; 93005; 93306; 93451; 93970; 94640; 94660; 94664; 94760; 97039; 99156; 99157; C1894; G0378; J0456; J0696; J1644; J1650; J1756; J1815; J1940; J3010; J3490; J7050

== ENCOUNTER → 2021-09-12 | Outpatient (CLI) | payer MEDICARE ==
[~2021-09-12] MED LIST changes: -ACET-2113 PO; +ACET325C6 PO; +ADV250 IH; +AEC81 PO; +ATOR40TA69 PO; +LINA145C PO; +METO5TAB7 PO; -TORS5TAB12 PO
[2021-09-12 13:33] LABS: POTASSIUM 6.1 mmol/L (3.5-5.1)
== END | disposition home or self-care (01) ==
LOC: LAB 08:20
PROVIDERS: ATTEND Internal Medicine Cardiovascular Disease
DX: I50.22 Chronic systolic (congestive) heart failure (principal)
CPT/HCPCS: 36415; 80048; 83880

== ENCOUNTER → 2021-09-15 | Outpatient (CLI) | payer MEDICARE ==
[2021-09-15 12:20] LABS: CREATININE 1.7 mg/dL (0.5-1.5)
== END | disposition home or self-care (01) ==
LOC: LAB 09:04
PROVIDERS: ATTEND Internal Medicine Cardiovascular Disease
DX: I11.0 Hypertensive heart disease with heart failure (principal); I50.42 Chronic combined systolic (congestive) and diastolic (congestive) heart failure
CPT/HCPCS: 36415; 80048

== ENCOUNTER → 2021-09-26 | Outpatient (CLI) | payer MEDICARE ==
[2021-09-26 12:48] LABS: CREATININE 1.8 mg/dL (0.5-1.5); POTASSIUM 5.1 mmol/L (3.5-5.1)
== END | disposition home or self-care (01) ==
LOC: LAB 08:43
PROVIDERS: ATTEND Internal Medicine Cardiovascular Disease
DX: I95.2 Hypotension due to drugs (principal); I50.23 Acute on chronic systolic (congestive) heart failure
CPT/HCPCS: 36415; 80048; 83880

== ENCOUNTER → 2021-11-22 | Outpatient (CLI) | payer OTHER, MEDICARE ==
[~2021-11-22] MED LIST changes: -AMLO-257 PO; +AMLO2.5T4 PO; -ATOR40TA69 PO; -DOCU100T PO; +DOCUSATE/SENNOSIDES PO; -INSU100I3 SQ; -LOSA25TA41 PO; +PRAV10TA39 PO; +SACU1TAB PO; +SEMA1PEN3 SQ; +TORS100T16 PO
[2021-11-22 12:41] LABS: CREATININE 1.9 mg/dL (0.5-1.5)
== END | disposition home or self-care (01) ==
LOC: LAB 08:52
PROVIDERS: ATTEND Internal Medicine Cardiovascular Disease
DX: I50.42 Chronic combined systolic (congestive) and diastolic (congestive) heart failure (principal)
CPT/HCPCS: 36415; 80048; 83880

== ENCOUNTER → 2021-12-26 | Outpatient (CLI) | payer OTHER, MEDICARE ==
[2021-12-26 12:27] LABS: CREATININE 1.6 mg/dL (0.5-1.5); POTASSIUM 4.6 mmol/L (3.5-5.1)
== END | disposition home or self-care (01) ==
LOC: LAB 09:14
PROVIDERS: ATTEND Internal Medicine Cardiovascular Disease
DX: I50.22 Chronic systolic (congestive) heart failure (principal)
CPT/HCPCS: 36415; 80048

== ENCOUNTER → 2022-02-20 | Outpatient (CLI) | payer OTHER, MEDICARE ==
[~2022-02-20] MED LIST changes: -ACET325C6 PO; -AEC81 PO; +ALBUHFA IH; -AMLO2.5T4 PO; +ASPI-1005 PO; -BISA-72 PO; -DOCUSATE/SENNOSIDES PO; +DOXY-336 PO; +INSU100I3 SQ; -LINA145C PO; -METO5TAB7 PO; +PANT40TA PO; -SACU1TAB PO; -SEMA1PEN3 SQ
[2022-02-20 12:27] LABS: CREATININE 2.3 mg/dL (0.5-1.5); POTASSIUM 4.1 mmol/L (3.5-5.1)
== END | disposition home or self-care (01) ==
LOC: LAB 09:24
PROVIDERS: ATTEND Internal Medicine Cardiovascular Disease
DX: I50.22 Chronic systolic (congestive) heart failure (principal)
CPT/HCPCS: 36415; 80048; 83880

== ENCOUNTER → 2022-03-09 | Outpatient (CLI) | payer OTHER, MEDICARE ==
[2022-03-09 12:35] LABS: CREATININE 1.8 mg/dL (0.5-1.5); POTASSIUM 4.5 mmol/L (3.5-5.1)
== END | disposition home or self-care (01) ==
LOC: LAB 08:56
PROVIDERS: ATTEND Internal Medicine Cardiovascular Disease
DX: I50.22 Chronic systolic (congestive) heart failure (principal)
CPT/HCPCS: 36415; 80048; 83880

== ENCOUNTER → 2022-05-02 | Outpatient (CLI) | payer OTHER, MEDICARE ==
[~2022-05-02] MED LIST changes: -CARV6.25 PO; +CARV6.2579 PO; -DOXY-336 PO; +HYDR25 PO; -TORS100T16 PO; +TORS20TA4 PO
[2022-05-02 12:35] LABS: CREATININE 1.8 mg/dL (0.5-1.5); MAGNESIUM 2.1 mg/dL (1.80-2.40)
== END | disposition home or self-care (01) ==
LOC: LAB 09:22
PROVIDERS: ATTEND Internal Medicine Cardiovascular Disease
DX: I50.42 Chronic combined systolic (congestive) and diastolic (congestive) heart failure (principal)
CPT/HCPCS: 36415; 80048; 83735; 83880

== ENCOUNTER 2022-07-30 12:16 | Inpatient (IN) | payer OTHER, MEDICARE ==
[~2022-07-30] VITALS: Ht 144.8 cm; Wt 72.1 kg
[2022-07-30 13:09] LABS: ALBUMIN 2.6 g/dL (3.5-5.0); CREATININE 2.3 mg/dL (0.5-1.5); POTASSIUM 5.5 mmol/L (3.5-5.1); TOTAL PROTEIN, SERUM 6.6 g/dL (6.0-8.3)
[2022-07-30] MEDS ORDERED: DiphenhydrAMINE HCL 50 MG/ML VIAL IV ONE (13:30)
[2022-07-30] MEDS ORDERED: SOLU-MEDROL 125MG VIAL IVP ONE (13:30)
[2022-07-30] MEDS ORDERED: FAMOTIDINE 20MG VIAL IV ONE (13:30)
[2022-07-30 13:33] LABS: BASOPHILS % (AUTO) 0.4 % (0.0-5.0); EOSINOPHILS % (AUTO) 1.1 % (0.0-8.0); HEMATOCRIT 30.1 % (36-48); LYMPHOCYTES % (AUTO) 15.4 % (21.0-51.0); MEAN CORPUSCULAR HEMOGLOBIN 27.3 pg (27.0-33.0); MEAN CORPUSCULAR HGB CONC 31.2 g/dL (32.0-36.0); MEAN CORPUSCULAR VOLUME 87.5 fL (79-99); MONOCYTES % (AUTO) 11.1 % (3.0-13.0); NEUTROPHILS % (AUTO) 71.3 % (40.0-77.0); PLATELET COUNT (AUTO) 267 K/uL (130-400); RED BLOOD CELL COUNT(AUTO) 3.44 MIL/uL (4.00-5.50); RED CELL DISTRIBUTION WIDTH 14.7 % (11.0-15.5); WHITE BLOOD COUNT (AUTO) 7.5 K/uL (4.8-10.8)
[2022-07-30 14:00] LABS: B-TYPE NATRIURETIC PEPTIDE 3670 pg/mL (0-100)
[2022-07-30 14:51] LABS: APPEARANCE,URINE TURBID (CLEAR); BILIRUBIN,URINE NEGATIVE (NEGATIVE); COLOR,URINE LIGHT-ORANGE (YELLOW); GLUCOSE, URINE (UA) NEGATIVE (NEGATIVE); KETONES,URINE NEGATIVE (NEGATIVE); LEUKOCYTE ESTERASE ,URINE 500 Leu/uL (NEGATIVE); NITRATE,URINE NEGATIVE (NEGATIVE); PH,URINE 5.5 (5.0-8.0); PROTEIN,URINE 100 mg/dL (NEGATIVE); UROBILINOGEN,URINE 0.2 mg/dL (0.2-1.0)
[2022-07-30 14:58] LABS: BACTERIA,URINE MANY /HPF (None Seen); OTHER CASTS, URINE 5 /LPF (None Seen); WBC,URINE TNTC /HPF (0-1)
[2022-07-30] MEDS ORDERED: CEFTRIAXONE 2GM VIAL IVP ONE (16:00)
[2022-07-30] MEDS ORDERED: ACETAMINOPHEN 325 MG TAB PO PRN ×2 (16:30)
[2022-07-30] MEDS: NITROGLYCERIN 1GM OINT 1 INCH/1GM TD SCH (16:30)
[2022-07-30] MEDS ORDERED: SODIUM ZIRCONIUM CYCLOSILICATE 5 GM POWD.PACK PO SCH (16:30)
[2022-07-30] MEDS ORDERED: ONDANSETRON 4MG INJ IV PRN (16:30)
[2022-07-30] MEDS ORDERED: NA ZIRCON CYCLOSIL(LOKELMA 10GM) PO ONE (16:30)
[2022-07-30] MEDS ORDERED: CLOPIDOGREL 75MG TAB PO SCH (17:24)
[2022-07-30 17:26] LABS: BASOPHILS % (AUTO) 0.2 % (0.0-5.0); EOSINOPHILS % (AUTO) 0.1 % (0.0-8.0); HEMATOCRIT 31.9 % (36-48); LYMPHOCYTES % (AUTO) 6.4 % (21.0-51.0); MEAN CORPUSCULAR HEMOGLOBIN 26.9 pg (27.0-33.0); MEAN CORPUSCULAR HGB CONC 30.7 g/dL (32.0-36.0); MEAN CORPUSCULAR VOLUME 87.6 fL (79-99); MONOCYTES % (AUTO) 1.5 % (3.0-13.0); NEUTROPHILS % (AUTO) 91.1 % (40.0-77.0); PLATELET COUNT (AUTO) 304 K/uL (130-400); RED BLOOD CELL COUNT(AUTO) 3.64 MIL/uL (4.00-5.50); RED CELL DISTRIBUTION WIDTH 14.7 % (11.0-15.5); WHITE BLOOD COUNT (AUTO) 9.1 K/uL (4.8-10.8)
[2022-07-30] MEDS ORDERED: HEPARIN 25,000 UNITS/250ML D5W 250 ML IV SCH (17:30)
[2022-07-30 17:37] LABS: INR 1.02 (0.85-1.15); PROTHROMBIN TIME 11.1 SEC (9.6-11.6)
[2022-07-30 17:38] LABS: PARTIAL THROMBOPLASTIN TIME 27.6 SEC (26.3-35.5)
[2022-07-30 17:39] LABS: HEMOGLOBIN A1C 6.4 % (4.0-6.0)
[2022-07-30 17:52] LABS: THYROID STIMULATING HORMONE 1.63 uIU/mL (0.36-3.74)
[2022-07-30 19:39] LABS: PROTHROMBIN TIME 10.9 SEC (9.6-11.6)
[2022-07-30 19:41] LABS: PARTIAL THROMBOPLASTIN TIME 28.9 SEC (26.3-35.5)
[2022-07-30] MEDS ORDERED: CARVEDILOL 3.125 MG TABLET PO SCH (21:00)
[2022-07-30] MEDS: FAMOTIDINE 20MG VIAL IV SCH (21:00)
[2022-07-30] MEDS: FUROSEMIDE 20MG VIAL IV SCH (21:17)
[2022-07-30 23:50] VITALS: BP 156/75
[2022-07-31] MEDS: NITROGLYCERIN 1GM OINT 1 INCH/1GM TD SCH ×3 (00:55→16:48)
[2022-07-31 01:14] LABS: INR 1.07 (0.85-1.15); PROTHROMBIN TIME 11.6 SEC (9.6-11.6)
[2022-07-31 01:15] LABS: PARTIAL THROMBOPLASTIN TIME 64.9 SEC (26.3-35.5)
[2022-07-31 04:50] VITALS: BP 154/66
[2022-07-31 05:10] LABS: BASOPHILS % (AUTO) 0.2 % (0.0-5.0); HEMATOCRIT 30.5 % (36-48); LYMPHOCYTES % (AUTO) 12.7 % (21.0-51.0); MEAN CORPUSCULAR HEMOGLOBIN 27.2 pg (27.0-33.0); MEAN CORPUSCULAR HGB CONC 30.8 g/dL (32.0-36.0); MEAN CORPUSCULAR VOLUME 88.4 fL (79-99); MONOCYTES % (AUTO) 1.7 % (3.0-13.0); NEUTROPHILS % (AUTO) 84.3 % (40.0-77.0); PLATELET COUNT (AUTO) 301 K/uL (130-400); RED BLOOD CELL COUNT(AUTO) 3.45 MIL/uL (4.00-5.50); RED CELL DISTRIBUTION WIDTH 14.7 % (11.0-15.5); WHITE BLOOD COUNT (AUTO) 6.3 K/uL (4.8-10.8)
[2022-07-31] MEDS: LEVOTHYROXINE 75 MCG TABLET PO SCH (05:29)
[2022-07-31 05:36] LABS: CREATININE 2.2 mg/dL (0.5-1.5); MAGNESIUM 2.1 mg/dL (1.80-2.40); PHOSPHORUS 4.8 mg/dL (2.5-4.9); POTASSIUM 5.2 mmol/L (3.5-5.1)
[2022-07-31 05:38] LABS: B-TYPE NATRIURETIC PEPTIDE 3860 pg/mL (0-100)
[2022-07-31 06:05] LABS: % IRON SATURATION 11.4 % (22-44)
[2022-07-31 08:00] VITALS: BP 152/70
[2022-07-31] MEDS: CLOPIDOGREL 75MG TAB PO SCH (08:33)
[2022-07-31] MEDS: FUROSEMIDE 20MG VIAL IV SCH ×2 (08:33→20:27)
[2022-07-31] MEDS: FAMOTIDINE 20MG VIAL IV SCH ×2 (08:34→20:27)
[2022-07-31] MEDS: ASPIRIN 81MG CHEW TAB PO SCH (08:34)
[2022-07-31] MEDS ORDERED: REGADENOSON 0.4 MG/5 ML PF SYG IVP SCH (09:00)
[2022-07-31 09:49] LABS: INR 1.1 (0.85-1.15); PROTHROMBIN TIME 11.9 SEC (9.6-11.6)
[2022-07-31 12:00] VITALS: BP 154/65
[2022-07-31] MEDS ORDERED: FUROSEMIDE 20MG VIAL IV ONE (12:00)
[2022-07-31 12:11] LABS: ABG BASE EXCESS -1.9 mmol/L (-2.0-3.0); ABG HCO3 21.9 mmol/L (21.0-28.0); ABG OXYGEN SATURATION 94.2 % (95.0-99.0); ABG PCO2 35 mmHg (32-45)
[2022-07-31] MEDS: CARVEDILOL 3.125 MG TABLET PO SCH ×2 (12:16→20:27)
[2022-07-31 16:00] VITALS: BP 139/62
[2022-07-31] MEDS: CEFTRIAXONE 2GM VIAL IVPB SCH (17:13)
[2022-07-31 19:53] VITALS: BP 134/58
[2022-07-31] MEDS ORDERED: EMPA10TA PO (20:34)
[2022-07-31] MEDS ORDERED: BISA-151 PO (20:34)
[2022-07-31] MEDS ORDERED: LEVO100 PO (20:34)
[2022-07-31] MEDS ORDERED: BIMA2.5D4 OU (20:34)
[2022-07-31] MEDS ORDERED: PANT40TA54 PO (20:34)
[2022-07-31] MEDS ORDERED: TORS100T16 PO (20:34)
[2022-07-31] MEDS ORDERED: INSU100I15 SQ (20:34)
[2022-07-31] MEDS ORDERED: ASPI-1197 PO (20:34)
[2022-07-31] MEDS ORDERED: CARV6.25 PO (20:34)
[2022-07-31] MEDS ORDERED: HYDR-4153 PO (20:35)
[2022-07-31] MEDS ORDERED: ADV250 IH (20:38)
[2022-07-31 23:36] VITALS: BP 126/64
[2022-08-01] MEDS: NITROGLYCERIN 1GM OINT 1 INCH/1GM TD SCH ×3 (00:07→16:36)
[2022-08-01 04:42] VITALS: BP 144/72
[2022-08-01 04:46] LABS: HEMATOCRIT 30.5 % (36-48); MEAN CORPUSCULAR HEMOGLOBIN 26.7 pg (27.0-33.0); MEAN CORPUSCULAR HGB CONC 30.2 g/dL (32.0-36.0); MEAN CORPUSCULAR VOLUME 88.7 fL (79-99); RED BLOOD CELL COUNT(AUTO) 3.44 MIL/uL (4.00-5.50); RED CELL DISTRIBUTION WIDTH 14.9 % (11.0-15.5); WHITE BLOOD COUNT (AUTO) 10.5 K/uL (4.8-10.8)
[2022-08-01 05:08] LABS: ALBUMIN 2.5 g/dL (3.5-5.0); CREATININE 2.4 mg/dL (0.5-1.5); POTASSIUM 4.4 mmol/L (3.5-5.1); TOTAL PROTEIN, SERUM 6.4 g/dL (6.0-8.3)
[2022-08-01] MEDS: LEVOTHYROXINE 75 MCG TABLET PO SCH (05:34)
[2022-08-01] MEDS ORDERED: LEVO75TA4 PO (07:46)
[2022-08-01] MEDS ORDERED: CLOP-31 PO (07:46)
[2022-08-01] MEDS ORDERED: CARV3.1262 PO (07:46)
[2022-08-01] MEDS ORDERED: CEPH500B PO (07:54)
[2022-08-01] MEDS ORDERED: TORS20TA4 PO (07:55)
[2022-08-01 08:00] VITALS: BP 142/57
[2022-08-01] MEDS ORDERED: TORSEMIDE 20 MG TAB PO SCH (09:00)
[2022-08-01] MEDS: FAMOTIDINE 20MG VIAL IV SCH (09:52)
[2022-08-01] MEDS: FUROSEMIDE 20MG VIAL IV SCH (09:52)
[2022-08-01] MEDS: CLOPIDOGREL 75MG TAB PO SCH (09:53)
[2022-08-01] MEDS: ASPIRIN 81MG CHEW TAB PO SCH (09:54)
[2022-08-01] MEDS: CARVEDILOL 3.125 MG TABLET PO SCH (09:54)
[2022-08-01 12:00] VITALS: BP 160/73
[2022-08-01] MEDS: CEFTRIAXONE 2GM VIAL IVPB SCH (16:35)
[2022-08-01 19:31] VITALS: BP 137/64
[2022-08-01 20:09] LABS: CREATININE 2.4 mg/dL (0.5-1.5); POTASSIUM 4.7 mmol/L (3.5-5.1)
== END 2022-08-01 20:20 | DRG 280 ==
LOC: EDH 12:16 → EDHIP 16:23 → 4AH 23:50
PROVIDERS: ADMIT Internal Medicine; ATTEND Internal Medicine
DX: I13.0 Hypertensive heart and chronic kidney disease with heart failure and stage 1 through stage 4 chronic kidney disease, or unspecified chronic kidney disease (principal); I21.A1 Myocardial infarction type 2; I50.21 Acute systolic (congestive) heart failure; N17.9 Acute kidney failure, unspecified; N39.0 Urinary tract infection, site not specified; N18.4 Chronic kidney disease, stage 4 (severe); Z20.822 Contact with and (suspected) exposure to COVID-19; I42.8 Other cardiomyopathies; I27.20 Pulmonary hypertension, unspecified; E11.22 Type 2 diabetes mellitus with diabetic chronic kidney disease; B96.1 Klebsiella pneumoniae [K. pneumoniae] as the cause of diseases classified elsewhere; E03.9 Hypothyroidism, unspecified; E78.5 Hyperlipidemia, unspecified; E87.5 Hyperkalemia; M19.031 Primary osteoarthritis, right wrist; Z96.651 Presence of right artificial knee joint; F41.9 Anxiety disorder, unspecified; G47.33 Obstructive sleep apnea (adult) (pediatric); Z90.49 Acquired absence of other specified parts of digestive tract; Z79.899 Other long term (current) drug therapy
CPT/HCPCS: 36415; 36600; 71045; 71250; 73110; 74176; 80048; 80053; 80061; 81001; 82550; 82607; 82728; 82746; 82803; 82948; 83036; 83540; 83550; 83690; 83735; 83874; 83880; 84100; 84145; 84443; 84484; 85025; 85027; 85045; 85610; 85730; 87040; 87077; 87088; 87186; 87635; 87804; 93005; 93306; 93356; 97039; C9803; G0378; J0696; J1200; J1644; J1940; J2785; J2930; J3490